=== PATIENT | male | born 1930 | race Asian ===

== ENCOUNTER 2016-10-19 05:32 | Inpatient (IN) | payer MEDICARE, OTHER ==
[2016-10-19] VITALS (13 sets, daily range): BP systolic 112–157; BP diastolic 58–89; PULSE 70–151; RESP 18; TEMP 97.5; Ht 172.7 cm; Wt 67.1 kg
[~2016-10-19] VITALS: Ht 172.7 cm; Wt 67.1 kg
[2016-10-19 06:23] LABS: Allen Test ACCEPTAB; Arterial Base Excess -0.4 mmol/L (-3.0-3); Arterial COHb 0.1 % (0.0-3.0); Arterial Fraction of Oxyhgb 96.8 % (93.0-99.0); Arterial HCO3 26.1 mmol/L (22.0-26.0); Arterial MetHb 0.3 % (0.0-1.5); Arterial Total Hemglobin 10.1 g/dl (12.0-18.0); Blood Gas IEPAP 15/5; MODE MASK - BIPAP
[2016-10-19 06:28] LABS: ABNORMAL IP MESSAGE 1; BASOPHIL # 0.1 10^3/ul (0.0-0.1); BASOPHILS % 0.4 % (0.0-2.0); EOSINOPHILS % 5.7 % (0.0-7.0); HEMATOCRIT 29.7 % (42.0-52.0); HEMOGLOBIN 9.3 g/dl (14.0-18.0); LYMPHOCYTES # 2.4 10^3/ul (0.8-2.9); LYMPHOCYTES % 13.6 % (15.0-51.0); MEAN CORPUSCULAR HEMOGLOBIN 33.5 pg (29.0-33.0); MEAN CORPUSCULAR HGB CONC 31.3 g/dl (32.0-37.0); MEAN CORPUSCULAR VOLUME 106.8 fl (82.0-101.0); MEAN PLATELET VOLUME 9.7 fl (7.4-10.4); MONOCYTES % 11.2 % (0.0-11.0); NEUTROPHILS % 67.9 % (39.0-77.0); NUCLEATED RED BLOOD CELLS% 0.1 /100WBC (0.0-0.0); PLATELET COUNT 229 10^3/UL (140-415); POSITIVE DIFF @See below; RED BLOOD COUNT 2.78 10^6/ul (4.70-6.10); RED CELL DISTRIBUTION WIDTH 18.6 % (11.5-14.5); WHITE BLOOD COUNT 17.6 10^3/ul (4.8-10.8)
--- NOTE | 2016-10-19 06:37 | RADRPT ---
PROCEDURE: XR Chest. CLINICAL INDICATION: Sepsis TECHNIQUE: AP Portable chest. COMPARISON: No pertinent prior examinations were submitted for comparison. FINDINGS: There is a right subclavian double-lumen central venous catheter with the tip in the SVC. The cardiomediastinal silhouette is within normal limits. The aortic arch is calcified. Biapical bu llous changes and right upper lobe scarring are visualized. Bilateral lower lung opacities and smal l pleural effusions are visualized. The left hemidiaphragm is obscured. The osseous structures are intact. IMPRESSION: Right dialysis catheter in place. Biapical bullous changes. Pulmonary edema, bilateral lower lung interstitial densities and small pleural effusions. Physician Zuleyma Date Time Electronically viewed and signed by Physician Zuleyma on 10/19/2016 06:37 CS/
[2016-10-19 06:40] LABS: INR 1.01; PARTIAL THROMBOPLASTIN TIME 31.3 Sec (25.0-35.0); PROTIME 13.3 Sec (12.2-14.2)
[2016-10-19 06:43] LABS: ALBUMIN 3.6 g/dl (3.3-4.9); ALBUMIN/GLOBULIN RATIO 1.05; BILIRUBIN,INDIRECT 0.3 mg/dl (0-1.1); BILIRUBIN,TOTAL 0.3 mg/dl (0.2-1.3); CALCIUM 8.4 mg/dl (8.4-10.2); CREATININE 4.89 mg/dl (0.61-1.24); POTASSIUM 4.7 mmol/L (3.5-5.1)
[2016-10-19 06:58] LABS: TROPONIN-I 0.491 ng/ml (0.00-0.12)
[2016-10-19] MEDS ORDERED: ASPIRIN 81 MG TAB PO ONE (07:00)
[2016-10-19] MEDS ORDERED: ASPIRIN 300 MG SUPP PR ONE (07:30)
[2016-10-19 07:49] LABS: AADO2 Arterial 247.7 mmHg (7.0-24.0); Allen Test ACCEPTAB; Arterial Base Excess -0.3 mmol/L (-3.0-3); Arterial COHb 0.1 % (0.0-3.0); Arterial Fraction of Oxyhgb 99.3 % (93.0-99.0); Arterial HCO3 24.1 mmol/L (22.0-26.0); Arterial MetHb 0.3 % (0.0-1.5); Arterial Total Hemglobin 9.1 g/dl (12.0-18.0); Blood Gas IEPAP 18/5; MODE MASK - BIPAP
--- NOTE | 2016-10-19 09:13 | ERA ---
ER Documentation Chief Complaint Date/Time DATE: 10/19/16 TIME: 09:05 Chief Complaint bib ra from [facility] for sob and low grade fever HPI 85-year-old man brought in by EMS from snf for shortness of breath. He was recently discharged from the hospital after being diagnosed with pneumonia. He is currently being treated with IV antibiotics. Patient was also recently diagnosed with end-stage kidney disease and had hemodialysis 2 days ago he is next hemodialysis is due tomorrow. He denies chest pain, he states fever has resolved, he has no vomiting or diarrhea, and his cough has improved. He denies blood per rectum or loss of consciousness. He is currently undergoing antibiotic therapy although does not recall the name of the antibiotic. ROS All systems reviewed and are negative except as per history of present illness. Allergies Allergies: Coded Allergies: No Known Allergy (Unverified , 10/19/16) PMhx/Soc Coronary artery disease, CHF, end-stage kidney disease hemodialysis dependent Saturdays, hypertension History of Surgery: Yes (right chest wall dialysis port placement) Anesthesia Reaction: No Hx Neurological Disorder: No Hx Respiratory Disorders: Yes (pneumonia recent) Hx Cardiac Disorders: Yes (chf, htn ) Hx Miscellaneous Medical Probl: Yes (CKD, Diabetes) Hx Alcohol Use: No Hx Substance Use: No Hx Tobacco Use: No Smoking Status: Never smoker FmHx Family History: No diabetes Physical Exam Vitals Vital Signs Date Time Temp Pulse Resp B/P Pulse Ox O2 Delivery O2 Flow Rate FiO2 10/19/16 07:18 82 25 160/69 100 BIPAP 10/19/16 06:33 92 100 100 10/19/16 06:03 98.5 92 29 139/76 100 BIPAP 10/19/16 05:45 112 100 100 10/19/16 05:39 98.5 114 29 175/89 99 Physical Exam GENERAL: Well-developed, well-nourished, afebrile, dyspneic HEENT: Moist mucous membranes, pink conjunctiva, no cervical spine tenderness or step-off deformities, no goiter, no jaundice or icterus, extraocular movements intact without pain. No submandibular induration, and no pharyngeal erythema NEURO: Alert and oriented 3, cranial nerves II through XII intact bilaterally, pupils equal round reactive to light, no focal deficits or facial asymmetry, sensation intact distally Strength 5/5 in upper and lower extremities bilaterally CARDIAC: Tachycardic and regular LUNGS: Crackles diffusely, no wheezing or stridor ABDOMEN: Soft nontender, no guarding, no rigidity, no rebound, no psoas sign no obturator sign. Normoactive bowel sounds SKIN: Warm and dry to touch, no abrasions, contusions, or hematomas, no lacerations, no ecchymosis, no target lesions, and without ulcers EXTREMITIES: No clubbing cyanosis or edema, calves are bilaterally symmetrical, no Homans sign, no popliteal cord sign. Distal pulses equal and bilateral PSYCH: Normal affect without agitation or irritability Result Diagram: 10/19/16 0540 10/19/16 0540 Results 24 hrs Laboratory Tests Test 10/19/16 05:40 10/19/16 05:53 10/19/16 07:30 White Blood Count 17.610^3/ul Red Blood Count 2.7810^6/ul Hemoglobin 9.3g/dl Hematocrit 29.7% Mean Corpuscular Volume 106.8fl Mean Corpuscular Hemoglobin 33.5pg Mean Corpuscular Hemoglobin Concent 31.3g/dl Red Cell Distribution Width 18.6% Platelet Count 55832^3/UL Mean Platelet Volume 9.7fl Neutrophils % 67.9% Lymphocytes % 13.6% Monocytes % 11.2% Eosinophils % 5.7% Basophils % 0.4% Nucleated Red Blood Cells % 0.1/100WBC Neutrophils # (Manual) 12.010^3/ul Lymphocytes # 2.410^3/ul Monocytes # 2.010^3/ul Eosinophils # 1.010^3/ul Basophils # 0.110^3/ul Nucleated Red Blood Cells # 0.010^3/ul Prothrombin Time 13.3Sec Prothrombin Time Ratio 1.0 INR International Normalized Ratio 1.01 Activated Partial Thromboplast Time 31.3Sec Sodium Level 138mmol/L Potassium Level 4.7mmol/L Chloride Level 95mmol/L Carbon Dioxide Level 26mmol/L Anion Gap 22 Blood Urea Nitrogen 32mg/dl Creatinine 4.89mg/dl Glucose Level 156mg/dl Lactic Acid Level 1.1mmol/L Calcium Level 8.4mg/dl Total Bilirubin 0.3mg/dl Direct Bilirubin 0.00mg/dl Indirect Bilirubin 0.3mg/dl Aspartate Amino Transf (AST/SGOT) 69IU/L Alanine Aminotransferase (ALT/SGPT) 51IU/L Alkaline Phosphatase 336IU/L Troponin I 0.491ng/ml Total Protein 7.0g/dl Albumin 3.6g/dl Globulin 3.40g/dl Albumin/Globulin Ratio 1.05 Blood Gas Specimen Source Blood arterial Blood arterial Arterial Blood Date Drawn 10/19/2016 6:15:26 AM 10/19/2016 7:40:12 AM Arterial Blood pH (Temp corrected) 7.322 7.419 Arterial Blood pCO2 (Temp correct) 51.5mmhg 38.1mmhg Arterial Blood pO2 (Temp corrected) 105.5mmHG 427.2mmHG Arterial Blood HCO3 26.1mmol/L 24.1mmol/L Arterial Blood Base Excess -0.4mmol/L -0.3mmol/L Arterial Blood Oxygen Saturation 97.2mmHG 99.7mmHG Luis Test ACCEPTAB ACCEPTAB Arterial Blood Gas Puncture Site Left Radial Right Radial Arterial Blood Carboxyhemoglobin 0.1% 0.1% Arterial Blood Methemoglobin 0.3% 0.3% Blood Gas A-a O2 Differential 556.0mmHg 247.7mmHg Oxyhemoglobin Percent 96.8% 99.3% Total Hemoglobin 10.1g/dl 9.1g/dl Blood Gas Temperature 37.0C 37.0C Blood Gas Respiration Rate 14.0 14.0 Blood Gas Actual Respiration Rate 30 16 Blood Gas Modality MASK - BIPAP MASK - BIPAP FiO2 100.0% 100.0% Blood Gas IPAP/EPAP Ratio 06/07 09/07 Blood Gas Notified Whom CHRISTI Alcala Blood Gas Notified Time 10/19/2016 6:23:34 AM 10/19/2016 7:48:59 AM Current Medications Medications (Trade) Dose Ordered Sig/Alize Route PRN Reason Start Time Stop Time Status Last Admin Dose Admin Aspirin (Aspirin) 324 mg ONCE ONCE PO 10/19/16 07:00 10/19/16 07:01 DC Aspirin (Aspirin) 300 mg ONCE ONCE MI 10/19/16 07:30 10/19/16 07:31 DC 10/19/16 07:14 Procedures/MDM IV line was established patient was placed on technology intern rhythm strip revealed a sinus tachycardia at 120 bpm. Patient was afebrile. EKG performed, read by me revealed a sinus tachycardia at 117 bpm, normal axis, narrow QRS complex with ST depressions in leads V4 through V6 concerning for ischemic etiology although patient is without complaints of chest pain. Patient was placed on BiPAP therapy for shortness of breath and suspected congestive heart failure. One view chest x-ray performed, read by me revealed cardiomegaly and a hemodialysis catheter in the right chest with bilateral pulmonary vascular congestion, possible infiltrates pulmonary edema. I administered aspirin 300 mg per rectum. Initial ABG was performed immediately after BiPAP therapy revealed a pH of 7.32 , PCO2 52, PO2 110 revealing respiratory acidosis and hypercapnia. After about 2 hours of BiPAP therapy ABG was repeated revealing a pH of 7.42, PCO2 38, PO2 427. Normal FiO2 decreased. CBC reveals a leukocytosis, electrolytes reveal kidney failure with a creatinine of 5, liver function tests unremarkable, troponin positive at 0.5. Lactic acid low at 1.1. I do not suspect sepsis. Critical Care: Time: 40 minutes, this was time separate from other billable procedures. Treatments/Evaluations: Close monitoring and treatment of unstable vital signs, cardiorespiratory, and neurologic status, while maintaining tight balance of fluid, respiratory, and cardiac interventions. Patient will be admitted to telemetry setting for continued medical management, with nephrology and cardiology consultations. Patient admitted to Dr. Galeas. Departure Diagnosis: Primary Impression: Acute respiratory failure Qualified Code: J96.01 - Acute respiratory failure with hypoxia and hypercapnia Additional Impressions: CHF (congestive heart failure) Qualified Code: I50.21 - Acute systolic congestive heart failure Non-STEMI (non-ST elevated myocardial infarction) End stage kidney disease Hypertensive emergency Condition: JUSTIN Medina MD Oct 19, 2016 09:13
--- NOTE | 2016-10-19 09:51 | HP ---
Date/Time of Note Date/Time of Note DATE: 10/19/16 TIME: 09:50 Assessment/Plan VTE Prophylaxis VTE Prophylaxis Intervention: heparin Assessment/Plan Assessment/Plan This is a 85-year-old elderly male, who was brought from a assisted facility for evaluation of worsening shortness of breath and cough. 1. Congestive heart failure, in exacerbation. Patient presented with obvious fluid overload requiring emergency hemodialysis. -We will call stat nephrology consultation. We will also attempt a dose of Lasix and place a Hay catheter. -We will start patient on beta-leslie and titrate as indicated. -Currently echocardiogram is not available and we will proceed with obtaining a 2D echo. 2. Acute hypoxic respiratory failure requiring BiPAP intervention secondary to #1. ABG reviewed. -Start [id number] bronchodilators and continue on BiPAP. -We will attempt diuresis as awaiting for hemodialysis. -We will consider pulmonary if indicated. 3. Non-ST elevated myocardial infarction. -We will trend troponin and consider heparin drip if indicated. -ASA,NTG SL and Morphine PRN. -Cardiology consult for further management 4. CKD with progression to end-stage renal disease requiring hemodialysis. -Again, we will follow-up with nephrology recommendation on hemodialysis. -We will also consider placing patient on permanent hemodialysis catheter and will be coordinated with our nephrology colleagues. 5. Leukocytosis, likely secondary to recent pneumonia. -We will start patient on cefepime and vancomycin. -Follow-up with urine and blood cultures. 6. Essential hypertension. -We will continue patient on antihypertensives. 7. Type 2 diabetes. -Accu-Cheks and insulin sliding scale. Obtain A1c. 8. Dyslipidemia. -We will start patient on statin. 9. Microcytic anemia. H&H stable. -Obtain folate, vitamin B12 and treat accordingly. 10. Debility. -Supportive care. Family opted for full code. DVT prophylaxis: Heparin PUD prophylaxis: Protonix Plan: Patient will be admitted to telemetry. EKG will be monitored closely. Troponin will be trended. Patient will have nephrology consultation and hemodialysis. Monitor respiratory status and will consider pulmonary if indicated. Will also obtain a.m. labs including fasting lipid panel, A1c, and TSH levels. We will also obtain follow-up chest x-rays. Next Case discussed with Dr. Carlos POSADA/DESTINY Admit Date/Time Admit Date/Time Hx of Present Illness This is a 85-year-old male with a past medical history of congestive heart failure, CKD with progression to end-stage renal disease started on hemodialysis 1 week ago, type 2 diabetes, dyslipidemia, essential hypertension, who was sent from SNF for worsening shortness of breath associated with cough. Apparently, patient was recently discharged from [facility] last week where he was treated for pneumonia, pulmonary edema and CKD progressed to end-stage renal disease for which dialysis was also started at that time. From there, he was sent to a assisted facility for completion of IV antibiotic for underlying pneumonia. On presentation, patient was in respiratory distress requiring BiPAP. He was feeling very weak and tired and upon his eyes to verbal stimuli and responds minimally. Patient continued to complain of shortness of breath. However, he denied any chest pain, nausea, vomiting, abdominal pain, headache, dizziness or other suggestion symptoms. Initial labs with elevated WBC 17,600, hemoglobin 9.3, hematocrit 29.7, anion gap 22, BUN 32, and creatinine 4.89. Patient also had elevated initial troponin 0 0.491. Urinalysis was negative of UTI. Chest x -ray showed severe pulmonary edema with small pleural effusion. Patient was given aspirin in the emergency room. ROS A 12 point review of system was assessed and is negative other than what is mentioned in HPI. PMH/Family/Social Past Medical History see HPI Past Surgical History see HPI Social History Former smoker-quit 30yrs ago no alcohol, illicit drug use history. Smoking Status: Never smoker Exam/Review of Systems Vital Signs Vitals Vital Signs Date Time Temp Pulse Resp B/P Pulse Ox O2 Delivery O2 Flow Rate FiO2 10/19/16 09:12 97.5 79 19 146/73 100 BIPAP 10/19/16 06:33 100 Exam Exam General: Frail looking male in respiratory distress. HEENT: Normocephalic, Atraumatic, No laceration or hematoma; Eyes: PEERL, Conjunctiva clear, Anicteric sclera Neck: Supple without any lymphadenopathy, nontender, no JVD, no carotid bruits, trachea midline, no thyromegaly Cardiac: S1, S2 auscultated, regular rhythm and rate, no mumurs or gallop Pulmonary: Coarse crackles throughout lung sanchez. Expiratory wheezing RUL. Increased work of breathing. +BIPAP. GI: Abdomen normal to inspection. Soft, non tender, non- distended, no masses, no rebound tenderness or guarding. Bowel sounds active on all four quadrants Genitourinary: Deferred Extremities: No cyanosis, clubbing, or edema. Pulses [2+] bilaterally. Full ROM on all four extremities. No focal weakness appreciated. Neurologic: Lethargic. opens eyes to verbal. Orientedx2. Skin: Clean,dry, and intact. No ecchymosis, no rashes, or lesions Labs Result Diagram: 10/19/16 0540 10/19/16 0540 Medications Medications Current Medications Furosemide (Lasix) 40 mg ONCE ONCE IV ; Start 10/19/16 at 10:00; Stop 10/19/16 at 10:01; Status UNV Ondansetron HCl (Zofran Inj) 4 mg Q6H PRN IV NAUSEA AND/OR VOMITING; Start at 10:00; Status UNV Morphine Sulfate (morphine) 2 mg Q4H PRN IV SEVERE PAIN LEVEL 7-10; Start 10/19 at 10:00; Status UNV Pantoprazole (Protonix Iv) 40 mg DAILY@06 IV ; Start 10/20/16 at 06:00; Status UNV Heparin Sodium (Porcine) (Heparin (5000 Units/0.5 ml)) 5,000 unit Q12 SC ; Start 10/19/16 at 21:00; Status UNV Metoprolol Tartrate (Lopressor) 25 mg DAILY PO ; Start 10/20/16 at 09:00; Status UNV Aspirin (Aspirin) 81 mg DAILY PO ; Start 10/20/16 at 09:00; Status UNV Hydralazine HCl (Apresoline) 10 mg Q6H PRN IV SBP>160; Start 10/19/16 at 10:00 ; Status UNV EDDIE ULLOA NP Oct 19, 2016 09:50
[2016-10-19] MEDS ORDERED: FUROSEMIDE 40 MG INJ IV ONE (10:00)
[2016-10-19] MEDS ORDERED: VANCOMYCIN IV PER PHARMACY XX SCH ×2 (10:00→21:30)
[2016-10-19] MEDS ORDERED: hydrALAzine 20 MG INJ IV PRN (10:00)
[2016-10-19] MEDS ORDERED: NACL 0.9% 3 ML SYG IV SCH (10:00)
[2016-10-19] MEDS ORDERED: VANCOMYCIN 1 GM (PMX) 250 ML IVPB SCH (10:00)
[2016-10-19] MEDS ORDERED: ONDANSETRON 4 MG INJ IV PRN (10:00)
[2016-10-19] MEDS ORDERED: morphine 2 MG INJ IV PRN (10:00)
[2016-10-19] MEDS: ASPIRIN 81 MG TAB PO SCH (10:30)
--- NOTE | 2016-10-19 10:39 | CONS ---
Date/Time of Note Date/Time of Note DATE: 10/19/16 TIME: 10:26 Assessment/Plan Assessment/Plan Chief Complaint/Hosp Course Acute on chronic ?diastolic heart failure: Possibly secondary to missed HD session Wednesday. Has not had HD for 4 days. Also with ischemia based on EKG which is contributing though pt denies chest pain. Needs urgent HD NSTEMI: Initial trop 0.5, EKG with diffuse ischemia concerning for 3 vessel disease or left main disease. Will definitely need a cardiac cath even with recent normal stress test which was likely a false negative. As the pt has no chest pain and his main issues are respiratory, will stabilize first with couple of days in a row of HD and plan for cardiac cath in 2 days assuming he remains hemodynamically stable and asymptomatic. Acute respiratory failure: Due to heart failure as above. On BiPAP ESRD on HD: recently started. Missed a session which likely caused his decompensation DM HTN HL -needs urgent HD and likely 2-3 days in a row, nephrology aware -trend trops, if next one is higher, start heparin drip -repeat EKG to see if ST changes have improved now that pt has been stabilized and is on BiPAP -cardiac cath (timing to be determined based on respiratory status, ideally should be off BiPAP and able to lay flat) -continue ASA, add lipitor -continue metoprolol 25mg BID, uptitrate as BP /HR tolerates Problems: Consultation Date/Type/Reason Admit Date/Time Date of Consultation: Oct 19, 2016 Type of Consultation: Cardiology Reason for Consultation Acute respiratory failure, NSTEMI Referring Provider: EDDIE ULLOA NP Hx of Present Illness 85 yo M with a h/o CHF, ESRD started on HD 1 week ago, DM, HTN, HL, who presented from his SNF with SOB. The pt was apparently at [facility] last week and was initiated on HD TTS. He was discharged to the SNF yesterday but had worsening SOB and was brought in. Per daughter the pt did not receive HD on Wednesday. Per review of records, the pt had been complaining of chest pain on last admission and stress test was normal. Upon arrival to the ED, the pt was placed on BiPAP. He remains on BiPAP. I was able to communicate with him after removing the BiPAP. He feels very weak and tired and still has SOB but he denies CP at this time. Per family, he has not had a previous SD or angiography. per HPI, otherwise negative Past Medical History per HPI Social History Smoking Status: Never smoker Exam/Review of Systems Vital Signs Vitals Vital Signs Date Time Temp Pulse Resp B/P Pulse Ox O2 Delivery O2 Flow Rate FiO2 10/19/16 09:12 97.5 79 19 146/73 100 BIPAP 10/19/16 06:33 100 Exam Constitutional: oriented, No alert (somnolent but arousable ) Psych: nl mood/affect Head: atraumatic, normocephalic ENMT: other (on BiPAP) Neck: jvd (12cm), supple Respiratory: crackles/rales (throughout ), No clear to auscultation Cardiovascular: systolic murmur (2/6 JACOB) Gastrointestinal: distended (mild), non-tender, soft Neurological: nl mental status, nl speech Skin: No rash or lesions Results EKG: sinus, diffuse 2-[address] depression with PINEDA in aVR concerning for global ischemia. Result Diagram: 10/19/16 0540 10/19/16 0540 Results 24 hrs Laboratory Tests Test 10/19/16 05:40 10/19/16 05:53 10/19/16 07:30 White Blood Count 17.6 H Red Blood Count 2.78 L Hemoglobin 9.3 L Hematocrit 29.7 L Mean Corpuscular Volume 106.8 H Mean Corpuscular Hemoglobin 33.5 H Mean Corpuscular Hemoglobin Concent 31.3 L Red Cell Distribution Width 18.6 H Platelet Count 229 Mean Platelet Volume 9.7 Neutrophils % 67.9 Lymphocytes % 13.6 L Monocytes % 11.2 H Eosinophils % 5.7 Basophils % 0.4 Nucleated Red Blood Cells % 0.1 H Neutrophils # (Manual) 12.0 H Lymphocytes # 2.4 Monocytes # 2.0 H Eosinophils # 1.0 H Basophils # 0.1 Nucleated Red Blood Cells # 0.0 Prothrombin Time 13.3 Prothrombin Time Ratio 1.0 INR International Normalized Ratio 1.01 Activated Partial Thromboplast Time 31.3 Sodium Level 138 Potassium Level 4.7 Chloride Level 95 L Carbon Dioxide Level 26 Anion Gap 22 H Blood Urea Nitrogen 32 H Creatinine 4.89 H Glucose Level 156 Lactic Acid Level 1.1 Calcium Level 8.4 Total Bilirubin 0.3 Direct Bilirubin 0.00 Indirect Bilirubin 0.3 Aspartate Amino Transf (AST/SGOT) 69 H Alanine Aminotransferase (ALT/SGPT) 51 Alkaline Phosphatase 336 H Troponin I 0.491 *H Total Protein 7.0 Albumin 3.6 Globulin 3.40 H Albumin/Globulin Ratio 1.05 Blood Gas Specimen Source Blood arterial Blood arterial Arterial Blood Date Drawn 10/19/2016 6:15:26 AM 10/19/2016 7:40:12 AM Arterial Blood pH (Temp corrected) 7.322 L 7.419 Arterial Blood pCO2 (Temp correct) 51.5 H 38.1 Arterial Blood pO2 (Temp corrected) 105.5 H 427.2 H Arterial Blood HCO3 26.1 H 24.1 Arterial Blood Base Excess -0.4 -0.3 Arterial Blood Oxygen Saturation 97.2 99.7 Luis Test ACCEPTAB ACCEPTAB Arterial Blood Gas Puncture Site Left Radial Right Radial Arterial Blood Carboxyhemoglobin 0.1 0.1 Arterial Blood Methemoglobin 0.3 0.3 Blood Gas A-a O2 Differential 556.0 H 247.7 H Oxyhemoglobin Percent 96.8 99.3 H Total Hemoglobin 10.1 L 9.1 L Blood Gas Temperature 37.0 37.0 Blood Gas Respiration Rate 14.0 14.0 Blood Gas Actual Respiration Rate 30 16 Blood Gas Modality MASK - BIPAP MASK - BIPAP FiO2 100.0 100.0 Blood Gas IPAP/EPAP Ratio 15 18 Blood Gas Notified Whom CHRISTI Alcala Blood Gas Notified Time 10/19/2016 6:23:34 AM 10/19/2016 7:48:59 AM Medications Medications Current Medications Furosemide (Lasix) 40 mg ONCE ONCE IV ; Start 10/19/16 at 10:00; Stop 10/19/16 at 10:01; Status UNV Ondansetron HCl (Zofran Inj) 4 mg Q6H PRN IV NAUSEA AND/OR VOMITING; Start at 10:00; Status UNV Morphine Sulfate (morphine) 2 mg Q4H PRN IV SEVERE PAIN LEVEL 7-10; Start 10/19 at 10:00; Status UNV Pantoprazole (Protonix Iv) 40 mg DAILY@06 IV ; Start 10/20/16 at 06:00; Status UNV Heparin Sodium (Porcine) (Heparin (5000 Units/0.5 ml)) 5,000 unit Q12 SC ; Start 10/19/16 at 21:00; Status UNV Metoprolol Tartrate (Lopressor) 25 mg DAILY PO ; Start 10/20/16 at 09:00; Status UNV Aspirin (Aspirin) 81 mg DAILY PO ; Start 10/20/16 at 09:00; Status UNV Hydralazine HCl 10 mg 10 mg Q6H PRN IV SBP>160; Start 10/19/16 at 10:00; Status UNV Cefepime HCl 50 ml @ 100 mls/hr Q12 IVPB ; Start 10/19/16 at 10:00; Status UNV Vancomycin HCl (Vancocin) 250 ml @ 125 mls/hr ONCE IVPB ; Start 10/19/16 at 10: 00; Stop 10/19/16 at 11:59; Status UNV Miscellaneous Information (* Miscellaneous Pharmacy Order) Discontinue current oral sulfonylur... ONCE ONCE XX ; Start 10/19/16 at 10:00; Stop 10/19/16 at 10: 01; Status UNV Diagnostic Test (Pha) (Accu-Chek) 1 XX ; Start 10/20/16 at 02:00; Status UNV Miscellaneous Information (* Miscellaneous Pharmacy Order) HYPOGLYCEMIA PROTOCOL w... ONCE ONCE XX ; Start 10/19/16 at 10:00; Stop 10/19/16 at 10:01; Status UNV Insulin Aspart (Novolog Insulin Pen) NOVOLOG *MILD* ALGORI... Q4 SC ; Start at 13:00; Status UNV Miscellaneous Information (* Miscellaneous Pharmacy Order) Discontinue all previ... ONCE ONCE XX ; Start 10/19/16 at 10:00; Stop 10/19/16 at 10:01; Status UNV NAEEM WRAY Oct 19, 2016 10:39
[2016-10-19] MEDS ORDERED: HEPARIN 5,000 UNIT/0.5 ML VIAL SC SCH (11:00)
[2016-10-19] MEDS: CEFEPIME 1GM/50 ML (PMX) 50 ML IVPB SCH (11:23)
[2016-10-19 11:29] LABS: ADD UMIC YES; UR ASCORBIC ACID NEGATIVE (NEGATIVE); UR BACTERIA FEW /HPF (NONE SEEN); UR BILIRUBIN (Dip) NEGATIVE (NEGATIVE); UR BLOOD (Dip) 1+ mg/dL (NEGATIVE); UR CLARITY CLOUDY (CLEAR); UR COLOR YELLOW (YELLOW); UR GLUCOSE (Dip) 1+ mg/dL (NEGATIVE); UR KETONES (Dip) TRACE mg/dL (NEGATIVE); UR LEUKOCYTE ESTERASE (Dip) NEGATIVE Leu/ul (NEGATIVE); UR NITRITE (Dip) NEGATIVE (NEGATIVE); UR RBC 2 /HPF (0-5); UR SPECIFIC GRAVITY (Dip) 1.017 (1.003-1.030); UR TOTAL PROTEIN (Dip) 3+ mg/dl (NEGATIVE); UR UROBILINOGEN (Dip) NEGATIVE (NEGATIVE)
[2016-10-19] MEDS ORDERED: METOPROLOL 25 MG TAB PO SCH (11:30)
[2016-10-19] MEDS: PANTOPRAZOLE 40 MG INJ IV SCH (12:55)
[2016-10-19] MEDS: INSULIN ASPART [NOVOLOG] 3 ML PEN SC SCH ×3 (13:00→21:00)
[2016-10-19 13:14] LABS: CK-MB 9.91 ng/ml (0.0-2.4)
[2016-10-19 13:16] LABS: TROPONIN-I 2.75 ng/ml (0.00-0.12)
[2016-10-19] MEDS ORDERED: VANCOMYCIN 500MG/NS (PMX) 100 ML IVPB SCH (15:00)
[2016-10-19 15:03] LABS: CK-MB 9.21 ng/ml (0.0-2.4); TROPONIN-I 2.98 ng/ml (0.00-0.12)
[2016-10-19] MEDS ORDERED: HEPARIN 25000 UNITS/250 ML 250 ML IV SCH (15:30)
[2016-10-19] MEDS ORDERED: HEPARIN 1000 UNITS/ML 10 ML INJ IV ONE (15:30)
[2016-10-19] MEDS ORDERED: HEPARIN 1000 UNITS/ML 10 ML INJ IV PRN (15:30)
[2016-10-19] MEDS ORDERED: METO-448 PO (15:39)
[2016-10-19] MEDS ORDERED: MOME13HF2 INHALATION (15:41)
[2016-10-19] MEDS ORDERED: DOXA4TAB3 PO (15:41)
[2016-10-19] MEDS ORDERED: FINA5TAB4 PO (15:42)
[2016-10-19] MEDS ORDERED: OMEG-135 PO (15:43)
[2016-10-19] MEDS ORDERED: [UNRECOGNIZED DRUG - CODE] PO (15:44)
[2016-10-19] MEDS ORDERED: HYDR-3670 PO (15:45)
[2016-10-19] MEDS ORDERED: LANT3I SC (15:46)
[2016-10-19] MEDS ORDERED: VIT1CAPS15 PO (15:48)
[2016-10-19] MEDS ORDERED: PANT40SU PO (15:48)
[2016-10-19] MEDS ORDERED: NEPH PO (15:49)
[2016-10-19] MEDS ORDERED: SEVE800T7 PO (15:50)
[2016-10-19] MEDS ORDERED: LINA5TAB PO (15:50)
[2016-10-19] MEDS ORDERED: ONDA-43 PO (15:51)
[2016-10-19] MEDS ORDERED: POLY17PO6 PO (15:51)
[2016-10-19] MEDS ORDERED: ACET325T33 PO (15:52)
[2016-10-19] MEDS ORDERED: BISA-57 PO (15:53)
[2016-10-19] MEDS ORDERED: ASPI-664 PO (15:54)
[2016-10-19] MEDS ORDERED: ZOLP5TAB PO (15:55)
[2016-10-19] MEDS ORDERED: ALBUTEROL/IPRATROPIUM (NEB) 3 ML AMP HHN PRN (16:00)
[2016-10-19 16:11] LABS: INR 1.02; PARTIAL THROMBOPLASTIN TIME 31.2 Sec (25.0-35.0); PROTIME 13.4 Sec (12.2-14.2)
--- NOTE | 2016-10-19 16:40 | RADRPT ---
PROCEDURE: US Lower extremity Venous. CLINICAL INDICATION: Lower extremity pain and swelling TECHNIQUE: Multiple sonographic images of the bilateral lower extremity deep venous system was obt ained utilizing grayscale, color-flow, compressive sonography and doppler imaging with augmentation. The images were reviewed on a PACS workstation. COMPARISON: None. FINDINGS: There is normal compressibility and flow within the bilateral common femoral, superficial femoral an d popliteal veins. Flow is seen in the posterior tibial and peroneal veins. IMPRESSION: No sonographic evidence for deep venous thrombosis. RPTAT: AA .Rowdy Wells MD, MD Date Time Electronically viewed and signed by .Rowdy Wells MD, MD on 10/19/2016 16:40 .P/
[2016-10-19] MEDS: ALBUTEROL/IPRATROPIUM (NEB) 3 ML AMP HHN SCH ×2 (17:11→20:04)
--- NOTE | 2016-10-19 19:44 | RADRPT ---
Echocardiogram Report Patient Name: JOSE MORAN Gender: Male Date: 1930 Study Date: 19-Oct-2016 Public Space Attendant: Niki [facility] Location: [facility] Ref. Physician: EDDIE ULLOA Quality: Adequate Procedures: Transthoracic echocardiogram with complete 2D, M-Mode, and doppler examination. Indications: Pulmonary Edema. 2D/M Mode Doppler Measurement Value Normal Ranges Measurement Value Normal Ranges LVIDd 2D 4.4 3.5 - 5.6 cm AV Peak Tony 1.3 m/sec LVIDs 2D 3.3 2.1 - 4.1 cm AV Peak PG 6.0 mmHg FS 2D 23.9 % LVOT Peak Tony 0.8 m/sec LVPWd 2D 1.3 0.6 - 1.1 cm LVOT Peak PG 3.0 mmHg IVSd 2D 1.3 0.6 - 1.1 cm MV E Peak Tony 1.3 m/sec IVS/LVPW 2D 1.0 MV A Peak Tony 1.4 m/sec AoR Diam 2D 2.6 2.0 - 3.7 cm MV E/A 0.9 LA/Ao 2D 1 0 - 1 MV Decel Time 137 msec EDV 2D 82.9 cm3 MV E/A 0.9 ESV 2D 36.6 cm3 TR Peak Tony 2.5 m/sec LA Dimen 2D 3.5 2.3 - 4.0 cm TR Peak PG 25.0 mmHg RVSP 33.0 mmHg Findings Left Ventricle: Lower limits of normal systolic function. Normal left ventricular cavity size. Mild concentric left ventricular hypertrophy. Ejection fraction is visually estimated at 50 %. Tissue Doppler/Mitral Doppler indices are consistent with impaired relaxation (Stage I diastolic dysfunction). Resting Segmental Wall Motion Analysis: Hypokinesis of the basal inferior and mid-distal inferolateral cedillo. Right Ventricle: Normal right ventricular size. Normal right ventricular systolic function. Left Atrium: There is mild enlargement of left atrium. Right Atrium: The right atrium is normal in size. Mitral Valve: Mild mitral leaflet calcification. Mild mitral annular calcification. Trace mitral regurgitation. Aortic Valve: Normal appearance of the aortic valve. No significant aortic stenosis or insufficiency. Tricuspid Valve: Normal appearance of the tricuspid valve. Unable to obtain RVSP due to minimal presence of tricuspid regurgitation. There is trace tricuspid regurgitation. Pulmonic Valve: Pulmonic valve not well visualized. There is trace pulmonic regurgitation. Pericardium: Normal pericardium with no significant pericardial effusion. Aorta: Normal aortic root. IVC: Normal size and poor respiratory collapse consistent with elevated right atrial pressure. Conclusions Lower limits of normal systolic function. Normal left ventricular cavity size. Mild concentric left ventricular hypertrophy. Ejection fraction is visually estimated at 50 %. Tissue Doppler/Mitral Doppler indices are consistent with impaired relaxation (Stage I diastolic dysfunction). Hypokinesis of the basal inferior and mid-distal inferolateral cedillo. No significant valvular stenosis or regurgitation seen. Unable to obtain RVSP due to minimal presence of tricuspid regurgitation. RA pressure estimated to be 8 mmHg. Electronically Signed By: Jorje Navarrete 19-Oct-2016 19:43:42 -0700 Patient Name: JOSE MORAN Study Date: 19-Oct-2016 [id number]
--- NOTE | 2016-10-19 20:33 | HP ---
DATE OF ADMISSION: 10/19/2016 HISTORY OF PRESENT ILLNESS: The patient is an 85-year-old gentleman, who had only been discharged from [facility] yesterday after having been dialyzed times 1 three days prior, who presents from a convalescent home with increasing shortness of breath and was evaluated in the emergency room. The patient's 2 daughters were at the bedside and history was reviewed. The patient denies any chest pains at this time. He was hospitalized at [facility] about 1 week back when he presented with increasing chest pain or shortness of breath and a Lexiscan was done, which was negative. Also, per patient's daughter, the patient had a workup by his billing and insurance coordinator, , and workup for coronary artery disease was negative. The patient also has history of hypertension and diabetes type 2. History of weight loss of nearly 10 pounds in the last 2 to 3 months per patient's daughter. The patient also had been hospitalized for pneumonia and had been placed on IV antibiotics about a week ago. No history of bronchial asthma. REVIEW OF SYSTEMS: HEENT: No history of headache, focal weakness, or numbness. No prior history of strokes. Eyes, no blurry vision or glaucoma. ENT noncontributory. NECK: No history of thyroid disease. PULMONARY: No bronchitis, atrial fibrillation, or asthma. The patient smoked for over 30 years 1 pack per day and stopped 20 years back. CARDIOVASCULAR: No prior history of NC or angina. Prior cardiac workup has been negative. GASTROINTESTINAL: No constipation, diarrhea, change of bowel habits. GENITOURINARY: No dysuria, hematuria, kidney stones. MEDICATIONS: Medication list to be reviewed. ALLERGIES: NO KNOWN ALLERGIES. PHYSICAL EXAMINATION: GENERAL: Patient is an average built male, presently in mild respiratory distress on BiPAP. VITAL SIGNS: Temperature 98.5, heart rate 114 per minute, blood pressure 174/89, pulse ox 99 percent, FiO2 100 percent. HEENT: Head normocephalic. No pallor, cyanosis, or icterus. Tongue is coated. NECK: Supple. No thyromegaly, bruits, lymphadenopathy. CHEST: Bilateral crackles at the bases. No wheezing noted. HEART: S1, S2 heard. No definite gallops. ABDOMEN: Soft, nontender. No hepatosplenomegaly. EXTREMITIES: No edema. Pedal pulsations 1 plus bilaterally. Homans sign is negative. NEUROLOGIC: No localizing or lateralizing signs. RECTAL: Deferred due to patient's discomfort. LABORATORY DATA: WBC 17.6, hematocrit 29.7, platelet count 229,000, lactic acid 1. Troponin 0.49 and repeat was 2.75. BNP 11,100. Chest x-ray shows bilateral pleural effusions with evidence of pulmonary edema. IMPRESSION: 1. Acute on chronic diastolic heart failure, likely has underlying coronary artery disease. 2. Acute respiratory failure secondary to heart failure. 3. End-stage renal disease on hemodialysis. 4. Diabetes mellitus type 2. 5. Hypertension. PLAN: The patient will need hemodialysis as soon as possible. I have requested Dr. Gresham and Dr. Zepeda to evaluate the patient and hemodialysis is being planned right away. Closely monitor troponin and follow cardiac recommendations. The patient will also be continued on intravenous antibiotic therapy namely with Zosyn and cefepime, follow-up chest x-ray in a.m., NovoLog for diabetic control. Dictated By: Saeid Galeas MD /raad/steph /Document#: [id number]
[2016-10-19] MEDS: ATORVASTATIN 40 MG TAB PO SCH (21:00)
[2016-10-19] MEDS ORDERED: CEFEPIME 1GM/50 ML (PMX) 50 ML IVPB SCH (21:30)
[2016-10-19] MEDS ORDERED: AMIODARONE 150MG/D5W BOLUS 100 ML IV ONE (22:30)
[2016-10-19] MEDS: METOPROLOL 25 MG TAB PO SCH (23:04)
[2016-10-20] VITALS (24 sets, daily range): BP systolic 91–171; BP diastolic 49–72; PULSE 68–95; RESP 17–25
[2016-10-20] MEDS: AMIODARONE 900 MG in DEXTROSE 5% 482 ML IV SCH ×2 (00:39→14:24)
[2016-10-20] MEDS: ALBUTEROL/IPRATROPIUM (NEB) 3 ML AMP HHN SCH ×6 (00:58→20:47)
[2016-10-20] MEDS: INSULIN ASPART [NOVOLOG] 3 ML PEN SC SCH ×4 (01:00→21:05)
[2016-10-20] MEDS: EPOETIN 10000 UNITS/1 ML INJ (ESRD) SC SCH (01:17)
[2016-10-20] MEDS ORDERED: ACCU-CHEK XX SCH (02:00)
--- NOTE | 2016-10-20 03:51 | CONS ---
DATE OF ADMISSION: 10/19/2016 DATE OF CONSULTATION: 10/19/2016 Thank you very much for allowing me to evaluate this 85-year-old male, presently in the ER, presenting with shortness of breath of several hours' duration and known impaired renal function. HISTORICAL EVENTS: The patient's history was obtained from the patient's family. They indicated to me that it was approximately a year ago that they were told that his kidney function had declined. More importantly was his admission to [facility] about 10 days ago, being hospitalized there 1 week ago and ultimately transferred to [facility] for convalescence 2 days ago. They stated that while at [facility], dialysis was instituted because of "fluid in his lungs," at that time, was not told that he had an acute heart injury. He presented to [facility] with increasing shortness of breath and weakness. He was ultimately transferred here from [facility] when he had the onset of shortness of breath earlier today without chest pain, having had no nausea, vomiting, or abdominal pain. PAST MEDICAL HISTORY: Includes. 1. Long history of diabetes. 2. History of hypertension. 3. Having had a heart "stress study" while at [facility]. 4. No history of stroke, antecedent MN, peptic ulcer disease, or phlebitis. 5. History of hyperlipidemia. PRESENT MEDICATIONS: Include: 1. Cefepime. 2. Vancomycin. 3. Baby aspirin. 4. Atorvastatin 40 mg per day. 5. Heparin 5000 units q.12. 6. Morphine as needed. 7. Zofran. 8. Protonix. 9. Insulin coverage. ALLERGIES: NONE. FAMILY HISTORY: To be reviewed later. PHYSICAL EXAMINATION: VITAL SIGNS: BP 146/73, respirations were 18. He was afebrile. EYES: Extraocular muscles were full. NECK: JVD was not present. LUNGS: Reduced breath sounds, without rales, wheezes or rhonchi. HEART: Rhythm regular. No murmur. No 3rd or 4th sound. ABDOMEN: Nontender. Liver and spleen were not palpable. No mass or tenderness were noted. EXTREMITIES: No edema. No calf tenderness. Pulses were reduced in the lower extremities. NEUROLOGIC: No lateralizing motor weakness. LABORATORY: Hematocrit 29.7, white count 17,600, platelet count was normal. Electrolytes were normal. BUN 32, creatinine 4.89. Troponin was elevated at 0.491. Blood gases: pCO2 of 38.1, pH 7.419, pO2 of 99.7 on 100 percent BiPAP. Chest x-ray was compatible with CHF. IMPRESSION: 1. Acute pulmonary edema with elevated troponin suggests a myocardial injury. Per Cardiology, will ultimately need heart cath. 2. Pulmonary edema that needs marcella dialytic intervention. This has been arranged promptly and await transfer to a room to institute this. 3. Mild anemia, likely related to chronic renal insufficiency. Iron studies are pending. 4. Hypertension control at this point is reasonable. PLAN: Will follow with you daily and will re-evaluate tomorrow, with respect to need for further dialysis. Procrit has been already ordered. Dictated By: Doni Zepeda MD /raad/johann /Document#: [id number] CC: Callie Pina MD;*End*
[2016-10-20] MEDS: PANTOPRAZOLE 40 MG INJ IV SCH (06:06)
[2016-10-20] MEDS ORDERED: GLUCOSE GEL 15 GRAM TUBE PO PRN ×2 (06:30)
[2016-10-20] MEDS ORDERED: GLUCOSE GEL 15 GRAM TUBE BUCCAL PRN (06:30)
[2016-10-20] MEDS ORDERED: GLUCAGON 1 MG INJ IM PRN (06:30)
[2016-10-20] MEDS ORDERED: DEXTROSE 50% 50 ML SYRINGE IV PRN ×2 (06:30)
--- NOTE | 2016-10-20 07:10 | RADRPT ---
PROCEDURE: XR Chest. CLINICAL INDICATION: Pulmonary edema TECHNIQUE: AP Portable chest. COMPARISON: 10/19/2016 FINDINGS: The right subclavian double-lumen central venous catheter is unchanged. The cardiomediastinal silhouette is within normal limits. The aortic arch is calcified. Biapical bul lous changes and right upper lobe scarring are is demonstrated. Interval increased lung volumes, dec reased pulmonary edema and bibasilar opacities. Probable small bilateral pleural effusions. The oss eous structures are intact. IMPRESSION: Right dialysis catheter in place. Interval decrease edema and basilar atelectasis. Physician Zuleyma Date Time Electronically viewed and signed by Physician Zuleyma on 10/20/2016 07:10 ELLEN/
--- NOTE | 2016-10-20 07:19 | CONS ---
Date/Time of Note Date/Time of Note DATE: 10/20/16 TIME: 07:14 Assessment/Plan Assessment/Plan Chief Complaint/Hosp Course Acute on chronic diastolic heart failure: Possibly secondary to missed HD session Wednesday. Possibly ischemia driven as inferolateral WMA and NSTEMI so could have had ischemic MR. Now much better after HD NSTEMI: Trop peak of 2.9 so far. Concern for 3 vessel or left main disease. Paroxysmal atrial fibrillation: Converted to afib 10/19. On amiodarone drip for now. 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 Acute respiratory failure: Due to heart failure as above. On BiPAP initially, now off and stable respiratory status ESRD on HD: recently started. Missed a session which likely caused his decompensation DM HTN HL -cardiac cath this am ~11:45. Suspect 3 vessel or left main disease. -Keep NPO (can give am meds) -ok to hold heparin drip -continue amiodarone drip -continue ASA, lipitor -continue metoprolol 25mg BID, uptitrate as BP /HR tolerates Problems: Consultation Date/Type/Reason Admit Date/Time Oct 19, 2016 at 07:51 Initial Consult Date 10/19/16 Type of Consultation: Cardiology Referring Provider: EDDIE ULLOA NP 24 HR Interval Summary Free Text/Dictation Trop so far up to 2.9. S/p HD with 3.5L out. Overnight converted to afib with RVR, started on amiodarone drip. Still in afib but controlled HR now. Heparin stopped due to HD cath site bleeding. No chest pain. SOB resolved. Exam/Review of Systems Vital Signs Vitals Vital Signs Date Time Temp Pulse Resp B/P Pulse Ox O2 Delivery O2 Flow Rate FiO2 10/20/16 05:54 69 18 96 Nasal Cannula 2.0 10/20/16 04:24 98.6 138/64 10/19/16 16:16 40 Intake and Output 10/19/16 10/19/16 10/20/16 15:00 23:00 07:00 Intake Total 1000 ml Output Total 4500 ml Balance -3500 ml Exam Constitutional: alert, oriented Psych: nl mood/affect, no complaints Head: atraumatic, normocephalic Eyes: nl conjunctiva ENMT: nl external ears & nose Neck: No jvd Respiratory: crackles/rales, No clear to auscultation (mild crackles ) Cardiovascular: edema (trace), No regular rate and rhythm, No systolic murmur Gastrointestinal: non-tender, soft Neurological: nl mental status, nl speech Results Result Diagram: 10/19/16 0540 10/19/16 0540 Results 24 hrs Laboratory Tests Test 10/19/16 07:30 10/19/16 09:03 10/19/16 11:00 10/19/16 12:10 Blood Gas Specimen Source Blood arterial Arterial Blood Date Drawn 10/19/2016 7:40:12 AM Arterial Blood pH (Temp corrected) 7.419 Arterial Blood pCO2 (Temp correct) 38.1 Arterial Blood pO2 (Temp corrected) 427.2 H Arterial Blood HCO3 24.1 Arterial Blood Base Excess -0.3 Arterial Blood Oxygen Saturation 99.7 Luis Test ACCEPTAB Arterial Blood Gas Puncture Site Right Radial Arterial Blood Carboxyhemoglobin 0.1 Arterial Blood Methemoglobin 0.3 Blood Gas A-a O2 Differential 247.7 H Oxyhemoglobin Percent 99.3 H Total Hemoglobin 9.1 L Blood Gas Temperature 37.0 Blood Gas Respiration Rate 14.0 Blood Gas Actual Respiration Rate 16 Blood Gas Modality MASK - BIPAP FiO2 100.0 Blood Gas IPAP/EPAP Ratio 18/5 Blood Gas Notified Whom Cari Blood Gas Notified Time 10/19/2016 7:48:59 AM Lactic Acid Level 0.9 1.0 Urine Color YELLOW Urine Clarity CLOUDY A Urine pH 5.0 Urine Specific [place] 1.017 Urine Ketones TRACE A Urine Nitrite NEGATIVE Urine Bilirubin NEGATIVE Urine Urobilinogen NEGATIVE Urine Leukocyte Esterase NEGATIVE Urine Microscopic RBC 2 Urine Microscopic WBC 2 Urine Bacteria FEW A Urine Hemoglobin 1+ H Urine Glucose 1+ H Urine Total Protein 3+ H Creatine Kinase 138 Creatine Kinase Index 7.2 Creatinine Kinase MB (Mass) 9.91 H Troponin I 2.750 *H B-Type Natriuretic Peptide 83117 H Test 10/19/16 13:11 10/19/16 14:10 10/19/16 15:45 10/19/16 17:11 Bedside Glucose 125 131 Creatine Kinase 143 Creatine Kinase Index 6.4 Creatinine Kinase MB (Mass) 9.21 H Troponin I 2.980 *H Prothrombin Time 13.4 Prothrombin Time Ratio 1.0 INR International Normalized Ratio 1.02 Activated Partial Thromboplast Time 31.2 Test 10/19/16 21:36 10/20/16 00:30 10/20/16 01:26 10/20/16 06:08 Bedside Glucose 99 117 128 Activated Partial Thromboplast Time 68.9 H Medications Medications Current Medications Ondansetron HCl (Zofran Inj) 4 mg Q6H PRN IV NAUSEA AND/OR VOMITING; Start at 10:00 Morphine Sulfate (morphine) 2 mg Q4H PRN IV SEVERE PAIN LEVEL 7-10; Start 10/19 at 10:00 Pantoprazole (Protonix Iv) 40 mg DAILY@06 IV Last administered on 10/20/16 06: 06; Admin Dose 40 MG; Start 10/19/16 at 11:00 Aspirin (Aspirin) 81 mg DAILY PO ; Start 10/19/16 at 10:30 Hydralazine HCl 10 mg 10 mg Q6H PRN IV SBP>160; Start 10/19/16 at 10:00 Cefepime HCl (Maxipime 1gm/50 ml (Pmx)) 50 ml @ 100 mls/hr Q24H IVPB Last administered on 10/19/16 11:23; Admin Dose 100 MLS/HR; Start 10/19/16 at 10:00 Diagnostic Test (Pha) (Accu-Chek) 1 ea 02 XX ; Start 10/20/16 at 02:00 Insulin Aspart (Novolog Insulin Pen) NOVOLOG *MILD* ALGORI... Q4 SC ; Start at 13:00 Atorvastatin Calcium (Lipitor) 40 mg QHS PO ; Start 10/19/16 at 21:00 Epoetin Guy (Epogen (Esrd)) 10,000 units MoWeFr@17 SC Last administered on 01:17; Admin Dose 10,000 UNITS; Start 10/19/16 at 17:00 Metoprolol Tartrate 25 mg 25 mg BID PO Last administered on 10/19/16 23:04; Admin Dose 25 MG; Start 10/19/16 at 22:30 Amiodarone HCl/ Dextrose (Cordarone Iv/ D5W) 500 ml @ 33.4 mls/hr [id number] IV Last administered on 10/20/16 00:39; Admin Dose 33.4 MLS/HR; Start 10/19/16 at 23:30 Miscellaneous Information 1 ea NOTE XX ; Start 10/20/16 at 06:30 Glucose (Glutose) 15 gm Q15M PRN PO DECREASED GLUCOSE; Start 10/20/16 at 06:30 Glucose (Glutose) 22.5 gm Q15M PRN PO DECREASED GLUCOSE; Start 10/20/16 at 06: 30 Dextrose (D50w Syringe) 25 ml Q15M PRN IV DECREASED GLUCOSE; Start 10/20/16 at 06:30 Dextrose (D50w Syringe) 50 ml Q15M PRN IV DECREASED GLUCOSE; Start 10/20/16 at 06:30 Glucagon (Glucagen) 1 mg Q15M PRN IM DECREASED GLUCOSE; Start 10/20/16 at 06:30 Glucose (Glutose) 15 gm Q15M PRN BUCCAL DECREASED GLUCOSE; Start 10/20/16 at 06 :30 NAEEM WRAY Oct 20, 2016 07:19
[2016-10-20 07:41] LABS: BASOPHILS % 0.3 % (0.0-2.0); EOSINOPHILS # 0.4 10^3/ul (0.0-0.5); EOSINOPHILS % 4.3 % (0.0-7.0); HEMATOCRIT 26.5 % (42.0-52.0); HEMOGLOBIN 8.4 g/dl (14.0-18.0); LYMPHOCYTES # 1.2 10^3/ul (0.8-2.9); LYMPHOCYTES % 13.2 % (15.0-51.0); MEAN CORPUSCULAR HEMOGLOBIN 34.6 pg (29.0-33.0); MEAN CORPUSCULAR HGB CONC 31.7 g/dl (32.0-37.0); MEAN CORPUSCULAR VOLUME 109.1 fl (82.0-101.0); MEAN PLATELET VOLUME 9.7 fl (7.4-10.4); MONOCYTE # 1.2 10^3/ul (0.3-0.9); MONOCYTES % 13.6 % (0.0-11.0); NEUTROPHILS % 67.8 % (39.0-77.0); PLATELET COUNT 177 10^3/UL (140-415); POSITIVE DIFF @See below; RED BLOOD COUNT 2.43 10^6/ul (4.70-6.10); RED CELL DISTRIBUTION WIDTH 18.9 % (11.5-14.5); WHITE BLOOD COUNT 9.1 10^3/ul (4.8-10.8)
[2016-10-20 07:59] LABS: IRON 38 ug/dl (35-150)
[2016-10-20 08:04] LABS: ALBUMIN/GLOBULIN RATIO 1.07; BILIRUBIN,INDIRECT 0.1 mg/dl (0-1.1); BILIRUBIN,TOTAL 0.1 mg/dl (0.2-1.3); CALCIUM 8.6 mg/dl (8.4-10.2); CHOL/HDL RATIO 1.9 RATIO; CREATININE 4.12 mg/dl (0.61-1.24); MAGNESIUM 2.2 mg/dl (1.7-2.5); PHOSPHORUS 4.4 mg/dl (2.5-4.9); POTASSIUM 3.6 mmol/L (3.5-5.1); TOTAL PROTEIN 5.8 g/dl (6.1-8.1)
[2016-10-20 08:10] LABS: TOTAL IRON BINDING CAPACITY 201 ug/dl (241-421)
[2016-10-20 08:33] LABS: THYROID STIMULATING HORMONE 0.762 MIU/L (0.465-4.680)
--- NOTE | 2016-10-20 08:54 | CONS ---
Date/Time of Note Date/Time of Note DATE: 10/20/16 TIME: 08:52 Assessment/Plan Assessment/Plan Additional Assessment/Plan 1. CHF resolving 2. ND, heart cath to be done today 3. CKD, to have HD post cath. 4. Anemia, will start iron. Consultation Date/Type/Reason Admit Date/Time Oct 19, 2016 at 07:51 Initial Consult Date 10/19/16 Type of Consultation: Cardiology Referring Provider: EDDIE ULLOA NP Detailed Summary Respiratory: shortness of breath (is mild), No cough Cardiovascular: No chest pain Gastrointestinal: no complaints Genitourinary: no complaints Exam/Review of Systems Vital Signs Vitals Vital Signs Date Time Temp Pulse Resp B/P Pulse Ox O2 Delivery O2 Flow Rate FiO2 10/20/16 08:46 83 18 98 Nasal Cannula 2.0 10/20/16 07:35 98.1 151/58 10/19/16 16:16 40 Intake and Output 10/19/16 10/19/16 10/20/16 14:59 22:59 06:59 Intake Total 1000 ml Output Total 4500 ml Balance -3500 ml Exam Neck: No jvd Respiratory: diminished breath sounds, other (few rales at the bases) Cardiovascular: regular rate and rhythm, No S3, No S4, No systolic murmur Gastrointestinal: soft Extremities: No edema (and no calf tend) Results Result Diagram: 10/20/16 0659 10/20/16 0659 Results 24 hrs Laboratory Tests Test 10/19/16 09:03 10/19/16 11:00 10/19/16 12:10 10/19/16 13:11 Lactic Acid Level 0.9 1.0 Urine Color YELLOW Urine Clarity CLOUDY A Urine pH 5.0 Urine Specific [place] 1.017 Urine Ketones TRACE A Urine Nitrite NEGATIVE Urine Bilirubin NEGATIVE Urine Urobilinogen NEGATIVE Urine Leukocyte Esterase NEGATIVE Urine Microscopic RBC 2 Urine Microscopic WBC 2 Urine Bacteria FEW A Urine Hemoglobin 1+ H Urine Glucose 1+ H Urine Total Protein 3+ H Creatine Kinase 138 Creatine Kinase Index 7.2 Creatinine Kinase MB (Mass) 9.91 H Troponin I 2.750 *H B-Type Natriuretic Peptide 66438 H Bedside Glucose 125 Test 10/19/16 14:10 10/19/16 15:45 10/19/16 17:11 10/19/16 21:36 Creatine Kinase 143 Creatine Kinase Index 6.4 Creatinine Kinase MB (Mass) 9.21 H Troponin I 2.980 *H Prothrombin Time 13.4 Prothrombin Time Ratio 1.0 INR International Normalized Ratio 1.02 Activated Partial Thromboplast Time 31.2 Bedside Glucose 131 99 Test 10/20/16 00:30 10/20/16 01:26 10/20/16 06:08 10/20/16 06:59 Activated Partial Thromboplast Time 68.9 H Bedside Glucose 117 128 White Blood Count 9.1 # Red Blood Count 2.43 L Hemoglobin 8.4 L Hematocrit 26.5 L Mean Corpuscular Volume 109.1 H Mean Corpuscular Hemoglobin 34.6 H Mean Corpuscular Hemoglobin Concent 31.7 L Red Cell Distribution Width 18.9 H Platelet Count 177 # Mean Platelet Volume 9.7 Neutrophils % 67.8 Lymphocytes % 13.2 L Monocytes % 13.6 H Eosinophils % 4.3 Basophils % 0.3 Nucleated Red Blood Cells % 0.0 Neutrophils # (Manual) 6.2 Lymphocytes # 1.2 Monocytes # 1.2 H Eosinophils # 0.4 Basophils # 0.0 Nucleated Red Blood Cells # 0.0 Sodium Level 140 Potassium Level 3.6 Chloride Level 100 Carbon Dioxide Level 24 Anion Gap 20 H Blood Urea Nitrogen 30 H Creatinine 4.12 H Glucose Level 132 Calcium Level 8.6 Phosphorus Level 4.4 Magnesium Level 2.2 Iron Level 38 Total Iron Binding Capacity 201 L Percent Iron Saturation 19 L Ferritin 592.0 H Total Bilirubin 0.1 L Direct Bilirubin 0.00 Indirect Bilirubin 0.1 Aspartate Amino Transf (AST/SGOT) 55 H Alanine Aminotransferase (ALT/SGPT) 52 Alkaline Phosphatase 279 H Total Protein 5.8 #L Albumin 3.0 L Globulin 2.80 Albumin/Globulin Ratio 1.07 Triglycerides Level 103 Cholesterol Level 101 LDL Cholesterol, Calculated 28 HDL Cholesterol 52 Cholesterol/HDL Ratio 1.9 Vitamin B12 Level Pending Thyroid Stimulating Hormone (TSH) 0.762 Medications Medications Current Medications Ondansetron HCl (Zofran Inj) 4 mg Q6H PRN IV NAUSEA AND/OR VOMITING; Start at 10:00 Morphine Sulfate (morphine) 2 mg Q4H PRN IV SEVERE PAIN LEVEL 7-10; Start 10/19 at 10:00 Pantoprazole (Protonix Iv) 40 mg DAILY@06 IV Last administered on 10/20/16 06: 06; Admin Dose 40 MG; Start 10/19/16 at 11:00 Aspirin (Aspirin) 81 mg DAILY PO ; Start 10/19/16 at 10:30 Hydralazine HCl 10 mg 10 mg Q6H PRN IV SBP>160; Start 10/19/16 at 10:00 Cefepime HCl (Maxipime 1gm/50 ml (Pmx)) 50 ml @ 100 mls/hr Q24H IVPB Last administered on 10/19/16 11:23; Admin Dose 100 MLS/HR; Start 10/19/16 at 10:00 Diagnostic Test (Pha) (Accu-Chek) 1 ea 02 XX ; Start 10/20/16 at 02:00 Insulin Aspart (Novolog Insulin Pen) NOVOLOG *MILD* ALGORI... Q4 SC ; Start at 13:00 Atorvastatin Calcium (Lipitor) 40 mg QHS PO ; Start 10/19/16 at 21:00 Epoetin Guy (Epogen (Esrd)) 10,000 units MoWeFr@17 SC Last administered on 01:17; Admin Dose 10,000 UNITS; Start 10/19/16 at 17:00 Metoprolol Tartrate 25 mg 25 mg BID PO Last administered on 10/19/16 23:04; Admin Dose 25 MG; Start 10/19/16 at 22:30 Amiodarone HCl/ Dextrose (Cordarone Iv/ D5W) 500 ml @ 33.4 mls/hr [id number] IV Last administered on 10/20/16 00:39; Admin Dose 33.4 MLS/HR; Start 10/19/16 at 23:30 Miscellaneous Information 1 ea NOTE XX ; Start 10/20/16 at 06:30 Glucose (Glutose) 15 gm Q15M PRN PO DECREASED GLUCOSE; Start 10/20/16 at 06:30 Glucose (Glutose) 22.5 gm Q15M PRN PO DECREASED GLUCOSE; Start 10/20/16 at 06: 30 Dextrose (D50w Syringe) 25 ml Q15M PRN IV DECREASED GLUCOSE; Start 10/20/16 at 06:30 Dextrose (D50w Syringe) 50 ml Q15M PRN IV DECREASED GLUCOSE; Start 10/20/16 at 06:30 Glucagon (Glucagen) 1 mg Q15M PRN IM DECREASED GLUCOSE; Start 10/20/16 at 06:30 Glucose (Glutose) 15 gm Q15M PRN BUCCAL DECREASED GLUCOSE; Start 10/20/16 at 06 :30 RIVERA GALVEZ MD Oct 20, 2016 08:54
--- NOTE | 2016-10-20 09:16 | CONS ---
DATE OF ADMISSION: 10/19/2016 DATE OF CONSULTATION: 10/19/2016 This is a nephrology consult. REASON FOR CONSULTATION: End-stage renal disease. PHYSICIAN REQUESTING CONSULTATION: . HISTORY OF PRESENT ILLNESS: This is an 84-year-old male with a past medical history of end-stage renal disease. The patient was placed on hemodialysis. History of CHF, history of pneumonia, hypertension, diabetes. He presents to [facility] with shortness of breath, low-grade fever. The patient apparently was recently admitted at [facility], where he was initiated hemodialysis. The patient was subsequently discharged and had worsening shortness of breath. As a result, he came to the hospital. The patient was recently treated for pneumonia with antibiotics at the outside facility. Upon arrival, the patient was noted to be in respiratory failure. He was placed on BiPAP. Chest x-ray in the emergency room showed pulmonary edema and small pleural effusions. In the emergency room, patient was given diuretics as well as aspirin. He was also noted in the emergency room to have significant EKG changes. PAST MEDICAL HISTORY: As stated above. History of end-stage renal disease. History of pneumonia, CHF, hypertension, diabetes. PAST SURGICAL HISTORY: Status post Perma-Cath placement. FAMILY HISTORY: Noncontributory. SOCIAL HISTORY: Does not drink, smoke, or do drugs. MEDICATION: Reviewed. REVIEW OF SYSTEMS: A 14-point review of systems conducted. Pertinent positives in HPI, otherwise negative. PHYSICAL EXAMINATION: VITAL SIGNS: Blood pressure is 139/76, pulse 92, respirations 29, temperature 98.5. HEENT: Head is normocephalic. NECK: Supple. HEART: Regular rate. LUNGS: Diminished breath sounds at the base. ABDOMEN: Soft, nontender to palpation. No rebound or guarding. EXTREMITIES: Negative for clubbing, cyanosis. Positive edema. DERMATOLOGIC: Clean. No rashes. MUSCULOSKELETAL: No joint effusion. NEUROLOGIC: No change in exam. LABORATORY AND DIAGNOSTIC DATA: White count 17.6, hemoglobin 9.3, hematocrit 29.7, platelet count 229,000. Sodium 138, potassium 4.7, chloride 95, BUN 32, creatinine 4.69, troponin 0.491. Imaging studies in [facility]. ASSESSMENT AND PLAN: 1. This is an 84-year-old male who presents end- stage renal disease. The patient has access Perma-Cath. The patient's last hemodialysis was 2 days ago. Plan is for dialysis today for volume removal . Will anticipate 2-3 L of ultrafiltration with hemodialysis. 2. Volume overload, congestive heart failure (CHF). The patient's chest x-ray shows evidence of pulmonary congestion. Plan is for hemodialysis, as stated above. Will ultrafiltrate for 2-3 L. 3. Mineral bone disorder. Monitor calcium and phosphorus levels. 4. Anemia. Monitor H and H levels. 5. Acute respiratory failure secondary to volume overload, congestive heart failure (CHF). Will continue BiPAP. Continue ultrafiltration, as stated above. 6. Non-ST elevation myocardial infarction (Non-STEMI). Will continue current medical management. Follow up with Cardiology. 7. Hypertension. Continue current blood pressure regimen. 8. Diabetes. Continue Accu-Chek and sliding scale. 9. Dyslipidemia. Continue statin therapy. Thank you very much for this interesting consult. It will be a pleasure to follow the patient with you throughout the hospital course. Dictated By: Brian Galaviz DO /raad/vivi /Document#: [id number]
[2016-10-20] MEDS: ASPIRIN 81 MG TAB PO SCH (09:22)
[2016-10-20] MEDS: CEFEPIME 1GM/50 ML (PMX) 50 ML IVPB SCH (09:23)
[2016-10-20] MEDS: METOPROLOL 25 MG TAB PO SCH ×2 (09:23→20:59)
[2016-10-20] MEDS ORDERED: CLOPIDOGREL 300 MG TAB ONE (12:08)
[2016-10-20] MEDS ORDERED: BIVALIRUDIN 250MG /NS 50 ML 50 ML IVPB ONE (12:08)
[2016-10-20] MEDS ORDERED: ASPIRIN 81 MG TAB ONE (12:12)
[2016-10-20] MEDS ORDERED: ACETAMINOPHEN 325 MG TAB PO PRN (13:30)
[2016-10-20] MEDS ORDERED: HEPARIN 1000 UNITS/ML 10 ML INJ ONE (13:34)
[2016-10-20] MEDS ORDERED: IODIXANOL LOCM 100 ML BTL ONE (13:34)
[2016-10-20] MEDS ORDERED: HEPARIN 1000 UNITS/NS (A-LINE) 1,000 ML ONE (13:34)
[2016-10-20] MEDS ORDERED: LIDOCAINE 1% (MDV) 20 ML INJ ONE (13:34)
[2016-10-20] MEDS ORDERED: NITROGLYCERIN (IC) 100 MCG/ML INJ ONE (13:34)
[2016-10-20] MEDS ORDERED: VERAPAMIL 5 MG INJ ONE (13:34)
[2016-10-20] MEDS ORDERED: IOHEXOL 350MG/ML 50 ML BTL ONE (13:34)
--- NOTE | 2016-10-20 13:49 | OPR ---
Date/Time of Note Date/Time of Note DATE: 10/20/16 TIME: 13:35 Operative Report Free Text/Dictation Procedure Date: 10/20/2016 Procedures Performed: 1)Left heart catheterization with selective left and right coronary angiography. 2)Balloon angioplasty and stenting of the prox Cx with a Synergy 2.5 x 16 stent. 3)Balloon angioplasty and stenting of the prox to mid RCA with a Synergy 2.75 x 38 and 3.0 x 16 stent (overlapping). Pre-operative Diagnosis:NSTEMI Post-operative Diagnosis:NSTEMI Indications:85 yo M with a h/o DM, HTN, recent ESRD on HD few weeks prior, who presented with SOB and was diagnosed with acute decompensated heart failure and NSTEMI (trop 3). Description of Procedure: After informed consent, the patient was brought to the cardiac catheterization lab. The procedure site was prepped and draped in usual manner. 2 mL lidocaine was injected into the left wrist. Next using the posterior wall technique, the 6/5 guinean sheath was inserted into the left radial artery. Next using the JL4 and JR4, selective angiography of the left and right coronary arteries were obtained. The pigtail was then advanced into the ventricle and hemodynamics obtained. Left ventricle angiography was not obtained. The decision was made to proceed with PCI of the Cx. A JL 4.0 guide was advanced and engaged into the left coronary artery. After appropriate anticoagulation and antiplatelets were given, the BMW angioplasty wire was advanced past the lesion. Next the 2.0 X 12 balloon was used to dilate the lesion times 2 at a maximum of 8 radha. The stent would not cross so a Mailman was used asa erick wire. The stent again would not cross so the lesion was dilated with a 2.5 x 8 balloon. Subsequently, the Synergy 2.5 x 16 stent was advanced to the lesion and deployed at nominal radha after the Mailman was removed. Next the stent was post dilated with the 2.75 X 8 noncompliant balloon times 3 at a maximum of 14 radha. Final angiography revealed MICHELLE 3 flow, no edge dissection, and appropriate stent expansion. The decision was made to proceed with PCI of the RCA. A JR4 guide was advanced and engaged into the right coronary artery. The PT2 moderate support angioplasty wire was advanced past the lesion. Next the 2.5 X 12 balloon was used to dilate the lesion times 6 at a maximum of 12 radha. Subsequently, the Synergy 2.75 x 38 stent was advanced to the lesion and deployed at 12 radha. The stent balloon was used to dilate the proximal edge of the stent. Subsequently, the Synergy 3.0 x 16 stent was advanced to the lesion and deployed at 12 radha ( overlapping). Next the stent was post dilated with the 3.0 X 15 noncompliant balloon times 6 at a maximum of 16 radha. Final angiography revealed MICHELLE 3 flow, no edge dissection, and appropriate stent expansion. Next all equipment was removed and hemostasis was achieved by TR band. Findings: Anatomy/Hemodynamics: Left main: distal 30% LAD: ostial 20%, luminal irregularities Diagonal:luminal irregularities Circumflex: ostial 20%, prox 90% eccentric lesion Obtuse marginal: prox 40%.Two very small OMs with diffuse disease RCA: prox to mid-distal very long up to 90% lesion PDA: 30% plaquing PLV:30% plaquing LV angiography:note done LV-Ao: no gradient LVEDP:24 mmHg Contrast used:200 mL Fluoroscopy time:22.3 mins Medications used: heparin 2000 units, verapamil 2.5 and NTG 200 for radial coacktail Angiomax bolus plus drip ASA 81mg (already given load and another 81mg in am) plavix 600mg Equipment used: 6 guinean JL 4 and JR4 guide BMW, PT2 moderate support and Mailman angioplasty wire 2 x 12, 2.5 x 8, 2.5 x 12 balloon Synergy 2.5 x 16 DEEPA (Cx) Synergy 2.75 x 38 and 3.0 x 16 overlapping DEEPA stents (RCA) 2.75 x 8 and 3.0 x 15 noncompliant balloon Assessment: NSTEMI s/p PCI of Circumflex and RCA lesions CAD: no significant large vessel residual disease (has small vessel disease) ADHF: EDP 24, mild CHF by exam ESRD on HD Paroxysmal afib: back in sinus Plan: -ICU monitoring -ASA (possibly d/c in one month to avoid triple therapy) -plavix at least one year NAEEM WRAY Oct 20, 2016 13:49
[2016-10-20] MEDS ORDERED: BISACODYL 10 MG SUPP PR ONE (15:00)
[2016-10-20] MEDS: SOD FERRIC GLUC COMPLX 125 MG in SOD CHLORIDE 0.9% 100 ML IVPB SCH (15:26)
[2016-10-20] MEDS ORDERED: FUROSEMIDE 20 MG INJ IV ONE (19:00)
[2016-10-20] MEDS: ATORVASTATIN 40 MG TAB PO SCH (20:59)
--- NOTE | 2016-10-20 23:14 | PN ---
DATE: 10/20/2016 SUBJECTIVE DATA: The patient has been transferred to the intensive care unit after having had a coronary angiogram, status post balloon angioplasty and stenting of proximal circumflex and mid RCA by Dr. Navarrete and Dr. Irizarry's recommendations are greatly appreciated. The patient is awake and alert. Denies any chest pain, no shortness of breath. PHYSICAL: On physical exam, patient is in no acute distress. VITAL SIGNS: Temperature 98.1, blood pressure 151/58, O2 sat 96 percent on O2 by nasal cannula 2 L. NECK: JVD is not increased. CHEST: Clinically clear anteriorly. HEART: S1, S2. No definite gallops. ABDOMEN: Soft, nontender. No hepatosplenomegaly. EXTREMITIES: No edema. Homans negative. LABORATORY: WBC count 9.1, hematocrit 26.5, MCV 109.1, platelet count 177,000. Sodium 140, potassium 3.6, BUN 30, creatinine 4.12, glucose . Hemoglobin A1c is 5.7, vitamin D 63.5, CK-MB yesterday was 9.21 along with troponin 2.98. IMPRESSION: 1. Acute non-ST elevation myocardial infarction with congestive heart failure with respiratory failure. 2. Status post recent pneumonia. 3. Hypertension. 4. Diabetes mellitus type 2. 5. Diabetic dyslipidemia. PLAN: We will continue Nephrology recommendations for hemodialysis. Closely monitor for failure and treat. Continue IV antibiotics presently. Repeat chest x-ray in a.m. The patient also has severe constipation. Will order prophylaxis suppository and enema as necessary. Dictated By: Saeid Galeas MD /raad/ /Document#: [id number]
[2016-10-21] VITALS (32 sets, daily range): BP systolic 78–169; BP diastolic 35–79; PULSE 65–91; RESP 15–29
[2016-10-21] MEDS: ALBUTEROL/IPRATROPIUM (NEB) 3 ML AMP HHN SCH ×6 (00:07→20:35)
[2016-10-21] MEDS ORDERED: ACCU-CHEK XX SCH (02:00)
[2016-10-21] MEDS: ACCU-CHEK XX SCH (02:20)
[2016-10-21 06:32] LABS: BASOPHILS % 0.3 % (0.0-2.0); EOSINOPHILS # 0.6 10^3/ul (0.0-0.5); EOSINOPHILS % 5.7 % (0.0-7.0); HEMATOCRIT 26.1 % (42.0-52.0); HEMOGLOBIN 8.4 g/dl (14.0-18.0); LYMPHOCYTES # 1.5 10^3/ul (0.8-2.9); LYMPHOCYTES % 14.4 % (15.0-51.0); MEAN CORPUSCULAR HEMOGLOBIN 34.9 pg (29.0-33.0); MEAN CORPUSCULAR HGB CONC 32.2 g/dl (32.0-37.0); MEAN CORPUSCULAR VOLUME 108.3 fl (82.0-101.0); MEAN PLATELET VOLUME 9.9 fl (7.4-10.4); MONOCYTE # 1.2 10^3/ul (0.3-0.9); MONOCYTES % 11.4 % (0.0-11.0); NEUTROPHILS % 67.3 % (39.0-77.0); PLATELET COUNT 185 10^3/UL (140-415); POSITIVE DIFF @See below; RED BLOOD COUNT 2.41 10^6/ul (4.70-6.10); RED CELL DISTRIBUTION WIDTH 18.8 % (11.5-14.5); WHITE BLOOD COUNT 10.5 10^3/ul (4.8-10.8)
[2016-10-21 07:02] LABS: CALCIUM 8.2 mg/dl (8.4-10.2); CREATININE 3.32 mg/dl (0.61-1.24); POTASSIUM 3.6 mmol/L (3.5-5.1)
--- NOTE | 2016-10-21 07:31 | CONS ---
Date/Time of Note Date/Time of Note DATE: 10/21/16 TIME: 07:24 Assessment/Plan Assessment/Plan Chief Complaint/Hosp Course NSTEMI: Trop peak of 2.9. S/p cath with PCI of prox Cx and prox to mid RCA . Acute on chronic diastolic heart failure: Possibly secondary to missed HD session Wednesday. Possibly ischemia driven. Now better but still mild overload Paroxysmal atrial fibrillation: Converted to afib 10/19. Back in sinus after amiodarone. Will need senior living anticoagulation. Acute respiratory failure: Due to heart failure as above. On BiPAP initially, now off and stable respiratory status ESRD on HD: recently started. DM HTN HL -will likely need HD again today -ASA, plavix -lipitor -increase to metoprolol 50mg BID -will likely start Eliquis 2.5mg BID tomorrow if no bleeding issues Problems: Consultation Date/Type/Reason Admit Date/Time Oct 19, 2016 at 07:51 Initial Consult Date 10/19/16 Type of Consultation: Cardiology Referring Provider: EDDIE ULLOA NP 24 HR Interval Summary Free Text/Dictation Some tachypnea again overnight. Had HD last night. No chest pain. Exam/Review of Systems Vital Signs Vitals Vital Signs Date Time Temp Pulse Resp B/P Pulse Ox O2 Delivery O2 Flow Rate FiO2 10/21/16 06:00 83 18 143/59 99 Room Air 10/21/16 05:00 2.0 10/21/16 04:00 98.5 10/19/16 16:16 40 Intake and Output 10/20/16 10/20/16 10/21/16 15:00 23:00 07:00 Intake Total 950 ml 200 ml Output Total 275 ml 3630 ml 230 ml Balance -275 ml -2680 ml -30 ml Exam Constitutional: alert, oriented Head: atraumatic, normocephalic Neck: jvd (8cm) Respiratory: crackles/rales, diminished breath sounds, No clear to auscultation Cardiovascular: regular rate and rhythm, No edema Gastrointestinal: non-tender, soft Musculoskeletal: nl extremities to inspection Neurological: nl mental status, nl speech Results Result Diagram: 10/21/16 0554 10/21/16 0554 Results 24 hrs Laboratory Tests Test 10/20/16 09:14 10/20/16 14:13 10/20/16 18:03 10/20/16 21:01 Bedside Glucose 149 140 151 188 Test 10/21/16 02:12 10/21/16 05:54 Bedside Glucose 162 White Blood Count 10.5 Red Blood Count 2.41 L Hemoglobin 8.4 L Hematocrit 26.1 L Mean Corpuscular Volume 108.3 H Mean Corpuscular Hemoglobin 34.9 H Mean Corpuscular Hemoglobin Concent 32.2 Red Cell Distribution Width 18.8 H Platelet Count 185 Mean Platelet Volume 9.9 Neutrophils % 67.3 Lymphocytes % 14.4 L Monocytes % 11.4 H Eosinophils % 5.7 Basophils % 0.3 Nucleated Red Blood Cells % 0.0 Neutrophils # (Manual) 7.1 Lymphocytes # 1.5 Monocytes # 1.2 H Eosinophils # 0.6 H Basophils # 0.0 Nucleated Red Blood Cells # 0.0 Sodium Level 141 Potassium Level 3.6 Chloride Level 99 Carbon Dioxide Level 28 Anion Gap 18 H Blood Urea Nitrogen 22 H Creatinine 3.32 H Glucose Level 127 Calcium Level 8.2 L Medications Medications Current Medications Ondansetron HCl (Zofran Inj) 4 mg Q6H PRN IV NAUSEA AND/OR VOMITING; Start at 10:00 Morphine Sulfate (morphine) 2 mg Q4H PRN IV SEVERE PAIN LEVEL 7-10; Start 10/19 at 10:00 Aspirin (Aspirin) 81 mg DAILY PO Last administered on 10/20/16 09:22; Admin Dose 81 MG; Start 10/19/16 at 10:30 Hydralazine HCl 10 mg 10 mg Q6H PRN IV SBP>160; Start 10/19/16 at 10:00 Cefepime HCl (Maxipime 1gm/50 ml (Pmx)) 50 ml @ 100 mls/hr Q24H IVPB Last administered on 10/20/16 09:23; Admin Dose 100 MLS/HR; Start 10/19/16 at 10:00 Atorvastatin Calcium (Lipitor) 40 mg QHS PO Last administered on 10/20/16 20: 59; Admin Dose 40 MG; Start 10/19/16 at 21:00 Epoetin Guy (Epogen (Esrd)) 10,000 units MoWeFr@17 SC Last administered on 01:17; Admin Dose 10,000 UNITS; Start 10/19/16 at 17:00 Miscellaneous Information 1 ea NOTE XX ; Start 10/20/16 at 06:30 Glucose (Glutose) 15 gm Q15M PRN PO DECREASED GLUCOSE; Start 10/20/16 at 06:30 Glucose (Glutose) 22.5 gm Q15M PRN PO DECREASED GLUCOSE; Start 10/20/16 at 06: 30 Dextrose (D50w Syringe) 25 ml Q15M PRN IV DECREASED GLUCOSE; Start 10/20/16 at 06:30 Dextrose (D50w Syringe) 50 ml Q15M PRN IV DECREASED GLUCOSE; Start 10/20/16 at 06:30 Glucagon (Glucagen) 1 mg Q15M PRN IM DECREASED GLUCOSE; Start 10/20/16 at 06:30 Glucose 15 gm 15 gm Q15M PRN BUCCAL DECREASED GLUCOSE; Start 10/20/16 at 06:30 Ferric Sodium Gluconate Complex/ Sodium Chloride (Ferrlecit/NS) 110 ml @ 110 mls/hr Q24H IVPB Last administered on 10/20/16 15:26; Admin Dose 110 MLS/HR; Start 10/20/16 at 11:00; Stop 10/24/16 at 11:59 Famotidine (Pepcid Iv) 20 mg DAILY IV ; Start 10/21/16 at 09:00 Diagnostic Test (Pha) (Accu-Chek) 1 ea 02 XX Last administered on 10/21/16 02: 20; Admin Dose 1 EA; Start 10/21/16 at 02:00 Clopidogrel Bisulfate (plaVIX) 75 mg DAILY PO ; Start 10/21/16 at 09:00 Acetaminophen (Tylenol Tab) 650 mg Q4H PRN PO NON-CARDIAC PAIN LEVEL (1-3); Start 10/20/16 at 13:30 Metoprolol Tartrate (Lopressor) 50 mg BID PO ; Start 10/21/16 at 09:00 NAEEM WRAY Oct 21, 2016 07:31
[2016-10-21] MEDS: INSULIN ASPART [NOVOLOG] 3 ML PEN SC SCH ×4 (07:35→21:32)
--- NOTE | 2016-10-21 07:45 | RADRPT ---
PROCEDURE: XR Chest. CLINICAL INDICATION: Shortness of breath. TECHNIQUE: Single frontal view. COMPARISON: None. FINDINGS: The right subclavian double-lumen dialysis central venous catheter is unchanged. The cardiomediastinal silhouette is within normal limits. The aortic arch is calcified. Biapical bul lous changes and right upper lobe scarring is unchanged. Pulmonary edema is worse than seen previous ly. Bibasilar atelectasis is worse than seen previously with right worse than left. There is a mod erate right pleural effusion and small left pleural effusion. IMPRESSION: 1. Worse appearance of the lungs. Right is worse than left. 2. Larger pleural effusions with right larger than left. RPTAT: QQ .Barry Marroquin MD, MD Date Time Electronically viewed and signed by .Barry Marroquin MD, MD on 10/21/2016 07:45 .R/
[2016-10-21] MEDS ORDERED: POTASSIUM CHLORIDE (SR) 10 MEQ TAB PO ONE (09:00)
[2016-10-21] MEDS ORDERED: FAMOTIDINE 20 MG INJ IV SCH (09:00)
--- NOTE | 2016-10-21 09:02 | CONS ---
Date/Time of Note Date/Time of Note DATE: 10/21/16 TIME: 08:58 Assessment/Plan Assessment/Plan Additional Assessment/Plan 1. Acute GA, 2 stents were placed. 2. Atrial fib now in sinus rhythm 3. DM, sugar control is acceptable 4. BP is controlled 5. Anemia, noted, receiving iv iron 6. Although cxr is abnl bedside exam is unremarkable but will hd today as interstitial edema likely present 7. I ordered PT to see him and mobilize 8. DC chapman once up and out of bed Consultation Date/Type/Reason Admit Date/Time Oct 19, 2016 at 07:51 Initial Consult Date 10/19/16 Type of Consultation: Cardiology Referring Provider: EDDIE ULLOA NP 24 HR Interval Summary Constitutional: other (feels very weak) Detailed Summary Respiratory: cough (that is not productive), No pleuritic pain Cardiovascular: No chest pain Gastrointestinal: no complaints Genitourinary: no complaints Exam/Review of Systems Vital Signs Vitals Vital Signs Date Time Temp Pulse Resp B/P Pulse Ox O2 Delivery O2 Flow Rate FiO2 10/21/16 08:35 76 12 99 Nasal Cannula 2.0 10/21/16 06:00 143/59 10/21/16 04:00 98.5 10/19/16 16:16 40 Intake and Output 10/20/16 10/20/16 10/21/16 15:00 23:00 07:00 Intake Total 950 ml 200 ml Output Total 275 ml 3630 ml 230 ml Balance -275 ml -2680 ml -30 ml Exam Neck: No jvd (but HJR is present) Genitourinary - Male: other (chapman in place) Results Result Diagram: 10/21/16 0554 10/21/16 0554 Results 24 hrs Laboratory Tests Test 10/20/16 09:14 10/20/16 14:13 10/20/16 18:03 10/20/16 21:01 Bedside Glucose 149 140 151 188 Test 10/21/16 02:12 10/21/16 05:54 10/21/16 08:26 Bedside Glucose 162 134 White Blood Count 10.5 Red Blood Count 2.41 L Hemoglobin 8.4 L Hematocrit 26.1 L Mean Corpuscular Volume 108.3 H Mean Corpuscular Hemoglobin 34.9 H Mean Corpuscular Hemoglobin Concent 32.2 Red Cell Distribution Width 18.8 H Platelet Count 185 Mean Platelet Volume 9.9 Neutrophils % 67.3 Lymphocytes % 14.4 L Monocytes % 11.4 H Eosinophils % 5.7 Basophils % 0.3 Nucleated Red Blood Cells % 0.0 Neutrophils # (Manual) 7.1 Lymphocytes # 1.5 Monocytes # 1.2 H Eosinophils # 0.6 H Basophils # 0.0 Nucleated Red Blood Cells # 0.0 Sodium Level 141 Potassium Level 3.6 Chloride Level 99 Carbon Dioxide Level 28 Anion Gap 18 H Blood Urea Nitrogen 22 H Creatinine 3.32 H Glucose Level 127 Calcium Level 8.2 L Random Vancomycin Level 6.8 Medications Medications Current Medications Ondansetron HCl (Zofran Inj) 4 mg Q6H PRN IV NAUSEA AND/OR VOMITING; Start at 10:00 Morphine Sulfate (morphine) 2 mg Q4H PRN IV SEVERE PAIN LEVEL 7-10; Start 10/19 at 10:00 Aspirin (Aspirin) 81 mg DAILY PO Last administered on 10/20/16 09:22; Admin Dose 81 MG; Start 10/19/16 at 10:30 Hydralazine HCl 10 mg 10 mg Q6H PRN IV SBP>160; Start 10/19/16 at 10:00 Cefepime HCl (Maxipime 1gm/50 ml (Pmx)) 50 ml @ 100 mls/hr Q24H IVPB Last administered on 10/20/16 09:23; Admin Dose 100 MLS/HR; Start 10/19/16 at 10:00 Atorvastatin Calcium (Lipitor) 40 mg QHS PO Last administered on 10/20/16 20: 59; Admin Dose 40 MG; Start 10/19/16 at 21:00 Epoetin Guy (Epogen (Esrd)) 10,000 units MoWeFr@17 SC Last administered on 01:17; Admin Dose 10,000 UNITS; Start 10/19/16 at 17:00 Miscellaneous Information 1 ea NOTE XX ; Start 10/20/16 at 06:30 Glucose (Glutose) 15 gm Q15M PRN PO DECREASED GLUCOSE; Start 10/20/16 at 06:30 Glucose (Glutose) 22.5 gm Q15M PRN PO DECREASED GLUCOSE; Start 10/20/16 at 06: 30 Dextrose (D50w Syringe) 25 ml Q15M PRN IV DECREASED GLUCOSE; Start 10/20/16 at 06:30 Dextrose (D50w Syringe) 50 ml Q15M PRN IV DECREASED GLUCOSE; Start 10/20/16 at 06:30 Glucagon (Glucagen) 1 mg Q15M PRN IM DECREASED GLUCOSE; Start 10/20/16 at 06:30 Glucose 15 gm 15 gm Q15M PRN BUCCAL DECREASED GLUCOSE; Start 10/20/16 at 06:30 Ferric Sodium Gluconate Complex/ Sodium Chloride (Ferrlecit/NS) 110 ml @ 110 mls/hr Q24H IVPB Last administered on 10/20/16 15:26; Admin Dose 110 MLS/HR; Start 10/20/16 at 11:00; Stop 10/24/16 at 11:59 Famotidine (Pepcid Iv) 20 mg DAILY IV ; Start 10/21/16 at 09:00 Diagnostic Test (Pha) (Accu-Chek) 1 ea 02 XX Last administered on 10/21/16 02: 20; Admin Dose 1 EA; Start 10/21/16 at 02:00 Clopidogrel Bisulfate (plaVIX) 75 mg DAILY PO ; Start 10/21/16 at 09:00 Acetaminophen (Tylenol Tab) 650 mg Q4H PRN PO NON-CARDIAC PAIN LEVEL (1-3); Start 10/20/16 at 13:30 Metoprolol Tartrate (Lopressor) 50 mg BID PO ; Start 10/21/16 at 09:00 Potassium Chloride (Klor-Con 10) 10 meq ONCE ONCE PO ; Start 10/21/16 at 09:00 ; Stop 10/21/16 at 09:01 RIVERA GALVEZ MD Oct 21, 2016 09:02
[2016-10-21] MEDS: METOPROLOL 50 MG TAB PO SCH ×2 (09:28→21:26)
[2016-10-21] MEDS: CLOPIDOGREL 75 MG TAB PO SCH (09:28)
[2016-10-21] MEDS: ASPIRIN 81 MG TAB PO SCH (09:32)
[2016-10-21] MEDS: CEFEPIME 1GM/50 ML (PMX) 50 ML IVPB SCH (09:39)
--- NOTE | 2016-10-21 09:58 | PN ---
DATE: 10/21/2016 SUBJECTIVE DATA: The patient is in ICU. Overall feels better. Denies any chest pain. Denies any shortness of breath. Did have a bowel movement. OBJECTIVE DATA: GENERAL: Patient is afebrile, awake, alert. VITAL SIGNS: Temperature 98.5, blood pressure 157/69, O2 sat 97 percent on 2 L nasal cannula. HEENT: Throat without exudates. NECK: JVD is not increased. CHEST: Reveals occasional crackles in the bases. HEART: S1, S2. No rubs or gallops. ABDOMEN: Soft, nontender. No hepatosplenomegaly. EXTREMITIES: No edema. Homans sign is negative. NEUROLOGIC: No localizing or lateralizing signs. LABORATORY AND DIAGNOSTIC DATA: WBC count 10.5, hematocrit 26.1, platelet count 183,000. Sodium 141, potassium 3.6, BUN 22, creatinine 3.32, glucose 188, 162 today. Chest x-ray, portable, this morning shows persistent pulmonary edema, moderate right pleural effusion, and a small left pleural effusion. IMPRESSION: 1. Acute [id number] myocardial infarction. 2. Congestive heart failure with respiratory failure, improving, status post recent pneumonia. 3. Status post coronary angiogram with balloon angioplasty and stenting of proximal circumflex and mid right coronary artery. 4. Diabetes mellitus type 2, well controlled. 5. Chronic kidney disease. 6. Diabetic dyslipidemia. PLAN: Continue statins, Plavix and aspirin. Anticoagulation per Dr. Navarrete. Patient likely will need hemodialysis. We will discuss with Dr. Zepeda and follow his recommendations. Dictated By: Saeid Galeas MD /raad/amelia /Document#: [id number]
[2016-10-21] MEDS ORDERED: VANCOMYCIN 1 GM in NS 250 ML IVPB SCH (10:00)
[2016-10-21] MEDS: SOD FERRIC GLUC COMPLX 125 MG in SOD CHLORIDE 0.9% 100 ML IVPB SCH (14:40)
[2016-10-21] MEDS: EPOETIN 10000 UNITS/1 ML INJ (ESRD) SC SCH (18:33)
[2016-10-21] MEDS: ATORVASTATIN 40 MG TAB PO SCH (21:25)
[2016-10-22] VITALS (19 sets, daily range): BP systolic 98–153; BP diastolic 46–88; PULSE 65–119; RESP 13–41
[2016-10-22] MEDS: ALBUTEROL/IPRATROPIUM (NEB) 3 ML AMP HHN SCH ×6 (01:39→21:00)
[2016-10-22] MEDS: ACCU-CHEK XX SCH (02:00)
[2016-10-22] MEDS: PANTOPRAZOLE (EC) 40 MG TAB PO SCH (05:37)
[2016-10-22 05:58] LABS: ABNORMAL IP MESSAGE 1; BASOPHILS % 0.3 % (0.0-2.0); EOSINOPHILS # 0.6 10^3/ul (0.0-0.5); EOSINOPHILS % 4.8 % (0.0-7.0); HEMATOCRIT 26.8 % (42.0-52.0); HEMOGLOBIN 8.4 g/dl (14.0-18.0); LYMPHOCYTES % 16.3 % (15.0-51.0); MEAN CORPUSCULAR HGB CONC 31.3 g/dl (32.0-37.0); MEAN CORPUSCULAR VOLUME 108.5 fl (82.0-101.0); MEAN PLATELET VOLUME 10.4 fl (7.4-10.4); MONOCYTE # 1.6 10^3/ul (0.3-0.9); MONOCYTES % 13.2 % (0.0-11.0); NEUTROPHILS % 64.4 % (39.0-77.0); NUCLEATED RED BLOOD CELLS% 0.3 /100WBC (0.0-0.0); PLATELET COUNT 207 10^3/UL (140-415); POSITIVE DIFF @See below; RED BLOOD COUNT 2.47 10^6/ul (4.70-6.10); RED CELL DISTRIBUTION WIDTH 18.4 % (11.5-14.5)
[2016-10-22 06:13] LABS: CREATININE 3.45 mg/dl (0.61-1.24); POTASSIUM 3.5 mmol/L (3.5-5.1)
[2016-10-22] MEDS: INSULIN ASPART [NOVOLOG] 3 ML PEN SC SCH ×4 (07:35→20:28)
[2016-10-22] MEDS: CLOPIDOGREL 75 MG TAB PO SCH (08:28)
[2016-10-22] MEDS: ASPIRIN 81 MG TAB PO SCH (08:28)
[2016-10-22] MEDS: CEFEPIME 1GM/50 ML (PMX) 50 ML IVPB SCH (09:31)
[2016-10-22] MEDS: METOPROLOL 50 MG TAB PO SCH ×2 (09:31→20:27)
--- NOTE | 2016-10-22 10:08 | CONS ---
Date/Time of Note Date/Time of Note DATE: 10/22/16 TIME: 10:05 Assessment/Plan Assessment/Plan Chief Complaint/Hosp Course NSTEMI: Trop peak of 2.9. S/p cath with PCI of prox Cx and prox to mid RCA . Acute on chronic diastolic heart failure: Possibly secondary to missed HD session Wednesday. Possibly ischemia driven. Now euvolemic Paroxysmal atrial fibrillation: Converted to afib 10/19. Back in sinus after amiodarone. Needs anticoagulation for CHADSVASC of 6 Acute respiratory failure: Due to heart failure as above. On BiPAP initially, now off and stable respiratory status ESRD on HD: recently started. DM HTN HL -add Eliquis 2.5mg BID (limited data for ESRD pts but not a contraindication) -ASA (should stop in one month to avoid triple therapy) -plavix -lipitor -metoprolol 50mg BID -ok for tele transfer Problems: Consultation Date/Type/Reason Admit Date/Time Oct 19, 2016 at 07:51 Initial Consult Date 10/19/16 Type of Consultation: Cardiology Referring Provider: EDDIE ULLOA NP 24 HR Interval Summary Free Text/Dictation Converted to afib this am when working with PT. HR <110 though. No SOB or CP today Exam/Review of Systems Vital Signs Vitals Vital Signs Date Time Temp Pulse Resp B/P Pulse Ox O2 Delivery O2 Flow Rate FiO2 10/22/16 09:50 101 16 100 2.0 10/22/16 09:00 131/50 Nasal Cannula 10/22/16 08:00 98.3 10/22/16 04:45 27 Intake and Output 10/21/16 10/21/16 10/22/16 15:00 23:00 07:00 Intake Total 50 ml 630 ml Output Total 125 ml 4535 ml 70 ml Balance -75 ml -3905 ml -70 ml Exam Constitutional: alert, oriented Psych: no complaints Head: atraumatic, normocephalic Neck: No jvd Respiratory: crackles/rales (mild), diminished breath sounds, No clear to auscultation Cardiovascular: No edema, No regular rate and rhythm Gastrointestinal: non-tender, soft Neurological: nl mental status, nl speech Results Result Diagram: 10/22/16 0500 10/22/16 0500 Results 24 hrs Laboratory Tests Test 10/21/16 12:39 10/21/16 18:25 10/21/16 21:29 10/22/16 01:59 Bedside Glucose 124 158 200 149 Test 10/22/16 05:00 10/22/16 08:04 White Blood Count 12.0 H Red Blood Count 2.47 L Hemoglobin 8.4 L Hematocrit 26.8 L Mean Corpuscular Volume 108.5 H Mean Corpuscular Hemoglobin 34.0 H Mean Corpuscular Hemoglobin Concent 31.3 L Red Cell Distribution Width 18.4 H Platelet Count 207 Mean Platelet Volume 10.4 Neutrophils % 64.4 Lymphocytes % 16.3 Monocytes % 13.2 H Eosinophils % 4.8 Basophils % 0.3 Nucleated Red Blood Cells % 0.3 H Neutrophils # (Manual) 7.7 H Lymphocytes # 2.0 Monocytes # 1.6 H Eosinophils # 0.6 H Basophils # 0.0 Nucleated Red Blood Cells # 0.0 Sodium Level 140 Potassium Level 3.5 Chloride Level 102 Carbon Dioxide Level 26 Anion Gap 16 Blood Urea Nitrogen 19 Creatinine 3.45 H Glucose Level 120 Calcium Level 9.0 Hepatitis B Surface Antigen NEGATIVE Hepatitis C Antibody NEGATIVE Bedside Glucose 138 Medications Medications Current Medications Ondansetron HCl (Zofran Inj) 4 mg Q6H PRN IV NAUSEA AND/OR VOMITING; Start at 10:00 Morphine Sulfate (morphine) 2 mg Q4H PRN IV SEVERE PAIN LEVEL 7-10; Start 10/19 at 10:00 Aspirin (Aspirin) 81 mg DAILY PO Last administered on 10/22/16 08:28; Admin Dose 81 MG; Start 10/19/16 at 10:30 Hydralazine HCl 10 mg 10 mg Q6H PRN IV SBP>160; Start 10/19/16 at 10:00 Cefepime HCl (Maxipime 1gm/50 ml (Pmx)) 50 ml @ 100 mls/hr Q24H IVPB Last administered on 10/22/16 09:31; Admin Dose 100 MLS/HR; Start 10/19/16 at 10:00 Atorvastatin Calcium (Lipitor) 40 mg QHS PO Last administered on 10/21/16 21: 25; Admin Dose 40 MG; Start 10/19/16 at 21:00 Epoetin Guy (Epogen (Esrd)) 10,000 units MoWeFr@17 SC Last administered on 18:33; Admin Dose 10,000 UNITS; Start 10/19/16 at 17:00 Miscellaneous Information 1 ea NOTE XX ; Start 10/20/16 at 06:30 Glucose (Glutose) 15 gm Q15M PRN PO DECREASED GLUCOSE; Start 10/20/16 at 06:30 Glucose (Glutose) 22.5 gm Q15M PRN PO DECREASED GLUCOSE; Start 10/20/16 at 06: 30 Dextrose (D50w Syringe) 25 ml Q15M PRN IV DECREASED GLUCOSE; Start 10/20/16 at 06:30 Dextrose (D50w Syringe) 50 ml Q15M PRN IV DECREASED GLUCOSE; Start 10/20/16 at 06:30 Glucagon (Glucagen) 1 mg Q15M PRN IM DECREASED GLUCOSE; Start 10/20/16 at 06:30 Glucose 15 gm 15 gm Q15M PRN BUCCAL DECREASED GLUCOSE; Start 10/20/16 at 06:30 Ferric Sodium Gluconate Complex/ Sodium Chloride (Ferrlecit/NS) 110 ml @ 110 mls/hr Q24H IVPB Last administered on 10/21/16 14:40; Admin Dose 110 MLS/HR; Start 10/20/16 at 11:00; Stop 10/24/16 at 11:59 Diagnostic Test (Pha) (Accu-Chek) 1 ea 02 XX Last administered on 10/22/16 02: 00; Admin Dose 1 EA; Start 10/21/16 at 02:00 Clopidogrel Bisulfate (plaVIX) 75 mg DAILY PO Last administered on 10/22/16 08 :28; Admin Dose 75 MG; Start 10/21/16 at 09:00 Acetaminophen (Tylenol Tab) 650 mg Q4H PRN PO NON-CARDIAC PAIN LEVEL (1-3); Start 10/20/16 at 13:30 Metoprolol Tartrate (Lopressor) 50 mg BID PO Last administered on 10/22/16 09: 31; Admin Dose 50 MG; Start 10/21/16 at 09:00 Pantoprazole (Protonix Tab) 40 mg DAILY@06 PO Last administered on 10/22/16 05 :37; Admin Dose 40 MG; Start 10/22/16 at 06:00 Apixaban (Eliquis) 2.5 mg BID PO ; Start 10/22/16 at 09:30 NAEEM WRAY Oct 22, 2016 10:07
[2016-10-22] MEDS: SOD FERRIC GLUC COMPLX 125 MG in SOD CHLORIDE 0.9% 100 ML IVPB SCH (10:11)
[2016-10-22] MEDS: APIXABAN 5 MG TABLET PO SCH ×2 (10:25→20:24)
[2016-10-22] MEDS ORDERED: POTASSIUM CHLORIDE (SR) 10 MEQ TAB PO ONE (11:30)
--- NOTE | 2016-10-22 11:33 | CONS ---
Date/Time of Note Date/Time of Note DATE: 10/22/16 TIME: 11:31 Assessment/Plan Assessment/Plan Additional Assessment/Plan 1. ESRD, next HD tomm 2. Acute ND, 2 stents placed, asx, now in Afib, eliquis started 3. Will dc chapman and check post void residual 4. Anemia is stable. 5. CHF resolving 6. ?? dc antibiotics Consultation Date/Type/Reason Admit Date/Time Oct 19, 2016 at 07:51 Initial Consult Date 10/19/16 Type of Consultation: Cardiology Referring Provider: EDDIE ULLOA NP Detailed Summary ENT: other (senses reduced hearing right ear) Respiratory: cough (not productive), No shortness of breath Cardiovascular: No chest pain Gastrointestinal: no complaints Genitourinary: other (chapman in place) Exam/Review of Systems Vital Signs Vitals Vital Signs Date Time Temp Pulse Resp B/P Pulse Ox O2 Delivery O2 Flow Rate FiO2 10/22/16 11:00 119 21 106/84 99 Nasal Cannula 2.0 10/22/16 08:00 98.3 10/22/16 04:45 27 Intake and Output 10/21/16 10/21/16 10/22/16 15:00 23:00 07:00 Intake Total 50 ml 630 ml Output Total 125 ml 4535 ml 70 ml Balance -75 ml -3905 ml -70 ml Exam Neck: No jvd Respiratory: diminished breath sounds (and only few rales at bases) Cardiovascular: No S3, No irregular rhythm Gastrointestinal: soft Extremities: No edema (and no calf tend) Results Result Diagram: 10/22/16 0500 10/22/16 0500 Results 24 hrs Laboratory Tests Test 10/21/16 12:39 10/21/16 18:25 10/21/16 21:29 10/22/16 01:59 Bedside Glucose 124 158 200 149 Test 10/22/16 05:00 10/22/16 08:04 White Blood Count 12.0 H Red Blood Count 2.47 L Hemoglobin 8.4 L Hematocrit 26.8 L Mean Corpuscular Volume 108.5 H Mean Corpuscular Hemoglobin 34.0 H Mean Corpuscular Hemoglobin Concent 31.3 L Red Cell Distribution Width 18.4 H Platelet Count 207 Mean Platelet Volume 10.4 Neutrophils % 64.4 Lymphocytes % 16.3 Monocytes % 13.2 H Eosinophils % 4.8 Basophils % 0.3 Nucleated Red Blood Cells % 0.3 H Neutrophils # (Manual) 7.7 H Lymphocytes # 2.0 Monocytes # 1.6 H Eosinophils # 0.6 H Basophils # 0.0 Nucleated Red Blood Cells # 0.0 Sodium Level 140 Potassium Level 3.5 Chloride Level 102 Carbon Dioxide Level 26 Anion Gap 16 Blood Urea Nitrogen 19 Creatinine 3.45 H Glucose Level 120 Calcium Level 9.0 Hepatitis B Surface Antigen NEGATIVE Hepatitis C Antibody NEGATIVE Bedside Glucose 138 Medications Medications Current Medications Ondansetron HCl (Zofran Inj) 4 mg Q6H PRN IV NAUSEA AND/OR VOMITING; Start at 10:00 Morphine Sulfate (morphine) 2 mg Q4H PRN IV SEVERE PAIN LEVEL 7-10; Start 10/19 at 10:00 Aspirin (Aspirin) 81 mg DAILY PO Last administered on 10/22/16 08:28; Admin Dose 81 MG; Start 10/19/16 at 10:30 Hydralazine HCl 10 mg 10 mg Q6H PRN IV SBP>160; Start 10/19/16 at 10:00 Cefepime HCl (Maxipime 1gm/50 ml (Pmx)) 50 ml @ 100 mls/hr Q24H IVPB Last administered on 10/22/16 09:31; Admin Dose 100 MLS/HR; Start 10/19/16 at 10:00 Atorvastatin Calcium (Lipitor) 40 mg QHS PO Last administered on 10/21/16 21: 25; Admin Dose 40 MG; Start 10/19/16 at 21:00 Epoetin Guy (Epogen (Esrd)) 10,000 units MoWeFr@17 SC Last administered on 18:33; Admin Dose 10,000 UNITS; Start 10/19/16 at 17:00 Miscellaneous Information 1 ea NOTE XX ; Start 10/20/16 at 06:30 Glucose (Glutose) 15 gm Q15M PRN PO DECREASED GLUCOSE; Start 10/20/16 at 06:30 Glucose (Glutose) 22.5 gm Q15M PRN PO DECREASED GLUCOSE; Start 10/20/16 at 06: 30 Dextrose (D50w Syringe) 25 ml Q15M PRN IV DECREASED GLUCOSE; Start 10/20/16 at 06:30 Dextrose (D50w Syringe) 50 ml Q15M PRN IV DECREASED GLUCOSE; Start 10/20/16 at 06:30 Glucagon (Glucagen) 1 mg Q15M PRN IM DECREASED GLUCOSE; Start 10/20/16 at 06:30 Glucose 15 gm 15 gm Q15M PRN BUCCAL DECREASED GLUCOSE; Start 10/20/16 at 06:30 Ferric Sodium Gluconate Complex/ Sodium Chloride (Ferrlecit/NS) 110 ml @ 110 mls/hr Q24H IVPB Last administered on 10/22/16 10:11; Admin Dose 110 MLS/HR; Start 10/20/16 at 11:00; Stop 10/24/16 at 11:59 Diagnostic Test (Pha) (Accu-Chek) 1 ea 02 XX Last administered on 10/22/16 02: 00; Admin Dose 1 EA; Start 10/21/16 at 02:00 Clopidogrel Bisulfate (plaVIX) 75 mg DAILY PO Last administered on 10/22/16 08 :28; Admin Dose 75 MG; Start 10/21/16 at 09:00 Acetaminophen (Tylenol Tab) 650 mg Q4H PRN PO NON-CARDIAC PAIN LEVEL (1-3); Start 10/20/16 at 13:30 Metoprolol Tartrate (Lopressor) 50 mg BID PO Last administered on 10/22/16 09: 31; Admin Dose 50 MG; Start 10/21/16 at 09:00 Pantoprazole (Protonix Tab) 40 mg DAILY@06 PO Last administered on 10/22/16 05 :37; Admin Dose 40 MG; Start 10/22/16 at 06:00 Apixaban (Eliquis) 2.5 mg BID PO Last administered on 10/22/16 10:25; Admin Dose 2.5 MG; Start 10/22/16 at 09:30 RIVERA GALVEZ MD Oct 22, 2016 11:33
[2016-10-22 15:20] LABS: ADD UMIC YES; UR ASCORBIC ACID NEGATIVE (NEGATIVE); UR BACTERIA FEW /HPF (NONE SEEN); UR BILIRUBIN (Dip) NEGATIVE (NEGATIVE); UR BLOOD (Dip) 3+ mg/dL (NEGATIVE); UR CLARITY CLOUDY (CLEAR); UR COLOR AMBER (YELLOW); UR GLUCOSE (Dip) 3+ mg/dL (NEGATIVE); UR KETONES (Dip) TRACE mg/dL (NEGATIVE); UR LEUKOCYTE ESTERASE (Dip) NEGATIVE Leu/ul (NEGATIVE); UR MUCUS FEW /HPF (NONE SEEN); UR NITRITE (Dip) NEGATIVE (NEGATIVE); UR RBC 79 /HPF (0-5); UR SPECIFIC GRAVITY (Dip) 1.026 (1.003-1.030); UR SQUAMOUS EPITHELIAL CELL FEW /HPF (FEW); UR TOTAL PROTEIN (Dip) 3+ mg/dl (NEGATIVE); UR UROBILINOGEN (Dip) NEGATIVE (NEGATIVE)
--- NOTE | 2016-10-22 15:40 | PN ---
DATE: 10/22/2016 SUBJECTIVE: The patient overall feels well. Denies any chest pain or shortness of breath. OBJECTIVE DATA: VITAL SIGNS: Temperature 98.3, blood pressure 122/70, pulse ox 100 percent on 2 L nasal cannula. NECK: JVD is not increased. CHEST: A few crackles over the bases. HEART: S1, S2. No definite gallops. EXTREMITIES: No edema. Homans is negative. NEUROLOGIC: No localizing lateralizing signs. LABORATORY: WBC 12.0, hematocrit 26.8, sodium 140, potassium 3.5. BUN 19, creatinine 3.45, glucose 138 and 170 today. IMPRESSION: 1. Status post non-ST elevation myocardial infarction. Status post percutaneous coronary intervention of circumflex and right coronary artery. 2. Acute on chronic diastolic heart failure. 3. Paroxysmal atrial fibrillation. 4. Acute respiratory failure. 5. End-stage renal disease on hemodialysis. 6. Diabetes mellitus type 2. 7. Diabetic dyslipidemia. 8. Status post pneumonia. PLAN: We will continue IV antibiotics for now. Repeat portable chest x-ray in a.m. Continue cardiac recommendations per Dr. Wynne and nephrology recommendations per Dr. Doni Zepeda MD Dictated By: Saeid Galeas MD /raad/sujit /Document#: [id number] MUNA
[2016-10-22 20:16] LABS: ADD UMIC YES; UR ASCORBIC ACID NEGATIVE (NEGATIVE); UR BACTERIA MODERATE /HPF (NONE SEEN); UR BILIRUBIN (Dip) NEGATIVE (NEGATIVE); UR BLOOD (Dip) 3+ mg/dL (NEGATIVE); UR CLARITY CLOUDY (CLEAR); UR COLOR AMBER (YELLOW); UR GLUCOSE (Dip) 3+ mg/dL (NEGATIVE); UR KETONES (Dip) NEGATIVE (NEGATIVE); UR LEUKOCYTE ESTERASE (Dip) 1+ Leu/ul (NEGATIVE); UR MUCUS FEW /HPF (NONE SEEN); UR NITRITE (Dip) NEGATIVE (NEGATIVE); UR RBC 86 /HPF (0-5); UR SPECIFIC GRAVITY (Dip) 1.027 (1.003-1.030); UR SQUAMOUS EPITHELIAL CELL FEW /HPF (FEW); UR TOTAL PROTEIN (Dip) 3+ mg/dl (NEGATIVE); UR UROBILINOGEN (Dip) NEGATIVE (NEGATIVE)
[2016-10-22] MEDS: ATORVASTATIN 40 MG TAB PO SCH (20:27)
[2016-10-23] VITALS (16 sets, daily range): BP systolic 119–148; BP diastolic 55–66; PULSE 63–92; RESP 16–19
[2016-10-23] MEDS: ALBUTEROL/IPRATROPIUM (NEB) 3 ML AMP HHN SCH ×5 (01:25→16:33)
[2016-10-23] MEDS: ACCU-CHEK XX SCH (02:00)
[2016-10-23] MEDS: PANTOPRAZOLE (EC) 40 MG TAB PO SCH (06:34)
[2016-10-23 07:34] LABS: BASOPHILS % 0.4 % (0.0-2.0); EOSINOPHILS # 0.6 10^3/ul (0.0-0.5); EOSINOPHILS % 6.3 % (0.0-7.0); HEMATOCRIT 26.9 % (42.0-52.0); HEMOGLOBIN 8.3 g/dl (14.0-18.0); LYMPHOCYTES # 1.4 10^3/ul (0.8-2.9); LYMPHOCYTES % 14.4 % (15.0-51.0); MEAN CORPUSCULAR HEMOGLOBIN 34.2 pg (29.0-33.0); MEAN CORPUSCULAR HGB CONC 30.9 g/dl (32.0-37.0); MEAN CORPUSCULAR VOLUME 110.7 fl (82.0-101.0); MEAN PLATELET VOLUME 10.1 fl (7.4-10.4); MONOCYTE # 1.2 10^3/ul (0.3-0.9); MONOCYTES % 11.6 % (0.0-11.0); NEUTROPHILS % 66.6 % (39.0-77.0); NUCLEATED RED BLOOD CELLS% 0.2 /100WBC (0.0-0.0); PLATELET COUNT 214 10^3/UL (140-415); RED BLOOD COUNT 2.43 10^6/ul (4.70-6.10); RED CELL DISTRIBUTION WIDTH 18.1 % (11.5-14.5); WHITE BLOOD COUNT 9.9 10^3/ul (4.8-10.8)
[2016-10-23] MEDS: INSULIN ASPART [NOVOLOG] 3 ML PEN SC SCH ×3 (07:55→17:09)
[2016-10-23 08:02] LABS: CALCIUM 8.2 mg/dl (8.4-10.2); CREATININE 5.4 mg/dl (0.61-1.24); PHOSPHORUS 3.2 mg/dl (2.5-4.9); POTASSIUM 3.5 mmol/L (3.5-5.1)
[2016-10-23] MEDS: METOPROLOL 50 MG TAB PO SCH (08:19)
--- NOTE | 2016-10-23 08:31 | RADRPT ---
PROCEDURE: XR Chest. CLINICAL INDICATION: Shortness of breath. TECHNIQUE: Single frontal view. COMPARISON: 10/21/2016. FINDINGS: There is a right internal jugular vein dual-lumen tunnel dialysis catheter, unchanged. Emphysematou s changes bilaterally in the upper lung zones are unchanged. There is improved aeration of the lung bases. The heart size is normal. There is calcification in the aorta consistent with atherosclerosis. There are small bilateral pleural effusions, smaller than seen previously. There is no pneumothorax. IMPRESSION: 1. Improved appearance of the lungs and smaller bilateral pleural effusions. 2. No other change from 10/21/2016. RPTAT: QQ .Barry Marroquin MD, MD Date Time Electronically viewed and signed by .Barry Marroquin MD, MD on 10/23/2016 08:30 .R/
[2016-10-23] MEDS: ASPIRIN 81 MG TAB PO SCH (08:44)
[2016-10-23] MEDS: CLOPIDOGREL 75 MG TAB PO SCH (08:44)
[2016-10-23] MEDS: APIXABAN 5 MG TABLET PO SCH (08:45)
--- NOTE | 2016-10-23 09:13 | CONS ---
Date/Time of Note Date/Time of Note DATE: 10/23/16 TIME: 09:09 Assessment/Plan Assessment/Plan Chief Complaint/Hosp Course NSTEMI: Trop peak of 2.9. S/p cath with PCI of prox Cx and prox to mid RCA . Acute on chronic diastolic heart failure: Possibly secondary to missed HD session Wednesday. Possibly ischemia driven. Now euvolemic Paroxysmal atrial fibrillation: Converted to afib 10/19. Back in sinus after amiodarone. Needs anticoagulation for CHADSVASC of 6 Acute respiratory failure: Due to heart failure as above. On BiPAP initially, now off and stable respiratory status ESRD on HD: recently started. DM HTN HL -continue Eliquis 2.5mg BID (limited data for ESRD pts but not a contraindication) -ASA (should stop in one month to avoid triple therapy) -plavix -lipitor -metoprolol 50mg BID -ok for d/c from my perspective Problems: Consultation Date/Type/Reason Admit Date/Time Oct 19, 2016 at 07:51 Initial Consult Date 10/19/16 Type of Consultation: Cardiology Referring Provider: EDDIE ULLOA NP 24 HR Interval Summary Free Text/Dictation No o/n events. No chest pain. No SOB. Exam/Review of Systems Vital Signs Vitals Vital Signs Date Time Temp Pulse Resp B/P Pulse Ox O2 Delivery O2 Flow Rate FiO2 10/23/16 08:15 69 10/23/16 08:11 98.9 16 148/66 96 10/23/16 04:17 Nasal Cannula 1.0 10/22/16 04:45 27 Intake and Output 10/22/16 10/22/16 10/23/16 15:00 23:00 07:00 Intake Total 740 ml 300 ml 120 ml Output Total 60 ml Balance 680 ml 300 ml 120 ml Exam Constitutional: alert, oriented Psych: no complaints Head: atraumatic, normocephalic Neck: No jvd Respiratory: clear to auscultation, diminished breath sounds, No crackles/rales Cardiovascular: regular rate and rhythm, No edema, No systolic murmur Gastrointestinal: non-tender, soft Neurological: nl mental status, nl speech Results Result Diagram: 10/23/16 0702 10/23/16 0702 Results 24 hrs Laboratory Tests Test 10/22/16 11:30 10/22/16 12:27 10/22/16 17:15 10/22/16 17:24 Urine Color KATHRINE KATHRINE Urine Clarity CLOUDY A CLOUDY A Urine pH 5.0 5.0 Urine Specific [place] 1.026 1.027 Urine Ketones TRACE A NEGATIVE Urine Nitrite NEGATIVE NEGATIVE Urine Bilirubin NEGATIVE NEGATIVE Urine Urobilinogen NEGATIVE NEGATIVE Urine Leukocyte Esterase NEGATIVE 1+ H Urine Microscopic RBC 79 H 86 H Urine Microscopic WBC 40 H 181 H Urine Squamous Epithelial Cells FEW FEW Urine Bacteria FEW A MODERATE Urine Mucus FEW A FEW A Urine Hemoglobin 3+ H 3+ H Urine Glucose 3+ H 3+ H Urine Total Protein 3+ H 3+ H Bedside Glucose 170 166 Urine Granular Casts MANY A Test 10/22/16 20:22 10/23/16 07:02 10/23/16 08:08 Bedside Glucose 112 131 White Blood Count 9.9 Red Blood Count 2.43 L Hemoglobin 8.3 L Hematocrit 26.9 L Mean Corpuscular Volume 110.7 H Mean Corpuscular Hemoglobin 34.2 H Mean Corpuscular Hemoglobin Concent 30.9 L Red Cell Distribution Width 18.1 H Platelet Count 214 Mean Platelet Volume 10.1 Neutrophils % 66.6 Lymphocytes % 14.4 L Monocytes % 11.6 H Eosinophils % 6.3 Basophils % 0.4 Nucleated Red Blood Cells % 0.2 H Neutrophils # (Manual) 6.6 Lymphocytes # 1.4 Monocytes # 1.2 H Eosinophils # 0.6 H Basophils # 0.0 Nucleated Red Blood Cells # 0.0 Sodium Level 136 Potassium Level 3.5 Chloride Level 104 Carbon Dioxide Level 24 Anion Gap 12 Blood Urea Nitrogen 29 H Creatinine 5.40 H Glucose Level 113 Calcium Level 8.2 L Phosphorus Level 3.2 Medications Medications Current Medications Ondansetron HCl (Zofran Inj) 4 mg Q6H PRN IV NAUSEA AND/OR VOMITING; Start at 10:00 Morphine Sulfate (morphine) 2 mg Q4H PRN IV SEVERE PAIN LEVEL 7-10; Start 10/19 at 10:00 Aspirin (Aspirin) 81 mg DAILY PO Last administered on 10/23/16t 08:44; Admin Dose 81 MG; Start 10/19/16 at 10:30 Hydralazine HCl 10 mg 10 mg Q6H PRN IV SBP>160; Start 10/19/16 at 10:00 Cefepime HCl (Maxipime 1gm/50 ml (Pmx)) 50 ml @ 100 mls/hr Q24H IVPB Last administered on 10/22/16 09:31; Admin Dose 100 MLS/HR; Start 10/19/16 at 10:00 Atorvastatin Calcium (Lipitor) 40 mg QHS PO Last administered on 10/22/16 20: 27; Admin Dose 40 MG; Start 10/19/16 at 21:00 Epoetin Guy (Epogen (Esrd)) 10,000 units MoWeFr@17 SC Last administered on 18:33; Admin Dose 10,000 UNITS; Start 10/19/16 at 17:00 Miscellaneous Information 1 ea NOTE XX ; Start 10/20/16 at 06:30 Glucose (Glutose) 15 gm Q15M PRN PO DECREASED GLUCOSE; Start 10/20/16 at 06:30 Glucose (Glutose) 22.5 gm Q15M PRN PO DECREASED GLUCOSE; Start 10/20/16 at 06: 30 Dextrose (D50w Syringe) 25 ml Q15M PRN IV DECREASED GLUCOSE; Start 10/20/16 at 06:30 Dextrose (D50w Syringe) 50 ml Q15M PRN IV DECREASED GLUCOSE; Start 10/20/16 at 06:30 Glucagon (Glucagen) 1 mg Q15M PRN IM DECREASED GLUCOSE; Start 10/20/16 at 06:30 Glucose 15 gm 15 gm Q15M PRN BUCCAL DECREASED GLUCOSE; Start 10/20/16 at 06:30 Ferric Sodium Gluconate Complex/ Sodium Chloride (Ferrlecit/NS) 110 ml @ 110 mls/hr Q24H IVPB Last administered on 10/22/16 10:11; Admin Dose 110 MLS/HR; Start 10/20/16 at 11:00; Stop 10/24/16 at 11:59 Diagnostic Test (Pha) (Accu-Chek) 1 ea 02 XX Last administered on 10/22/16 02: 00; Admin Dose 1 EA; Start 10/21/16 at 02:00 Clopidogrel Bisulfate (plaVIX) 75 mg DAILY PO Last administered on 10/23/16 08: 44; Admin Dose 75 MG; Start 10/21/16 at 09:00 Acetaminophen (Tylenol Tab) 650 mg Q4H PRN PO NON-CARDIAC PAIN LEVEL (1-3); Start 10/20/16 at 13:30 Metoprolol Tartrate (Lopressor) 50 mg BID PO Last administered on 10/22/16 20: 27; Admin Dose 50 MG; Start 10/21/16 at 09:00 Pantoprazole (Protonix Tab) 40 mg DAILY@06 PO Last administered on 10/23/16 06: 34; Admin Dose 40 MG; Start 10/22/16 at 06:00 Apixaban (Eliquis) 2.5 mg BID PO Last administered on 10/23/16 08:45; Admin Dose 2.5 MG; Start 10/22/16 at 09:30 NAEEM WRAY Oct 23, 2016 09:13
[2016-10-23] MEDS ORDERED: POTASSIUM CHLORIDE (SR) 20 MEQ TAB PO STA (09:27)
--- NOTE | 2016-10-23 10:56 | CONS ---
Date/Time of Note Date/Time of Note DATE: 10/23/16 TIME: 10:53 Assessment/Plan Assessment/Plan Additional Assessment/Plan 1. CKD sec to DM, now being dialyzed, next HD Wednesday 2. ASHD, acute mi, CHF--->resolved. 3. Paroxysmal A fib, on anticoagulation 4. Anemia, stable 5. Inc MCV-B12 and folate are nl, ordered SIEP 6. Await case management re--transfer to acute rehab 7. Will permanent access later Consultation Date/Type/Reason Admit Date/Time Oct 19, 2016 at 07:51 Initial Consult Date 10/19/16 Type of Consultation: Cardiology Referring Provider: EDDIE ULLOA NP Detailed Summary Respiratory: No shortness of breath Cardiovascular: No chest pain, No lightheadedness, No orthopenea Gastrointestinal: no complaints Genitourinary: no complaints Exam/Review of Systems Vital Signs Vitals Vital Signs Date Time Temp Pulse Resp B/P Pulse Ox O2 Delivery O2 Flow Rate FiO2 10/23/16 09:16 1.0 10/23/16 09:15 79 18 98 Nasal Cannula 10/23/16 08:11 98.9 148/66 10/22/16 04:45 27 Intake and Output 10/22/16 10/22/16 10/23/16 14:59 22:59 06:59 Intake Total 740 ml 300 ml 120 ml Output Total 80 ml Balance 660 ml 300 ml 120 ml Exam Neck: No jvd Respiratory: clear to auscultation Cardiovascular: regular rate and rhythm, No S3, No S4, No systolic murmur Gastrointestinal: soft Extremities: No edema (and no calf tend) Results Result Diagram: 10/23/16 0702 10/23/16 0702 Results 24 hrs Laboratory Tests Test 10/22/16 11:30 10/22/16 12:27 10/22/16 17:15 10/22/16 17:24 Urine Color KATHRINE KATHRINE Urine Clarity CLOUDY A CLOUDY A Urine pH 5.0 5.0 Urine Specific [place] 1.026 1.027 Urine Ketones TRACE A NEGATIVE Urine Nitrite NEGATIVE NEGATIVE Urine Bilirubin NEGATIVE NEGATIVE Urine Urobilinogen NEGATIVE NEGATIVE Urine Leukocyte Esterase NEGATIVE 1+ H Urine Microscopic RBC 79 H 86 H Urine Microscopic WBC 40 H 181 H Urine Squamous Epithelial Cells FEW FEW Urine Bacteria FEW A MODERATE Urine Mucus FEW A FEW A Urine Hemoglobin 3+ H 3+ H Urine Glucose 3+ H 3+ H Urine Total Protein 3+ H 3+ H Bedside Glucose 170 166 Urine Granular Casts MANY A Test 10/22/16 20:22 10/23/16 07:02 10/23/16 08:08 Bedside Glucose 112 131 White Blood Count 9.9 Red Blood Count 2.43 L Hemoglobin 8.3 L Hematocrit 26.9 L Mean Corpuscular Volume 110.7 H Mean Corpuscular Hemoglobin 34.2 H Mean Corpuscular Hemoglobin Concent 30.9 L Red Cell Distribution Width 18.1 H Platelet Count 214 Mean Platelet Volume 10.1 Neutrophils % 66.6 Lymphocytes % 14.4 L Monocytes % 11.6 H Eosinophils % 6.3 Basophils % 0.4 Nucleated Red Blood Cells % 0.2 H Neutrophils # (Manual) 6.6 Lymphocytes # 1.4 Monocytes # 1.2 H Eosinophils # 0.6 H Basophils # 0.0 Nucleated Red Blood Cells # 0.0 Sodium Level 136 Potassium Level 3.5 Chloride Level 104 Carbon Dioxide Level 24 Anion Gap 12 Blood Urea Nitrogen 29 H Creatinine 5.40 H Glucose Level 113 Calcium Level 8.2 L Phosphorus Level 3.2 Medications Medications Current Medications Ondansetron HCl (Zofran Inj) 4 mg Q6H PRN IV NAUSEA AND/OR VOMITING; Start at 10:00 Morphine Sulfate (morphine) 2 mg Q4H PRN IV SEVERE PAIN LEVEL 7-10; Start 10/19 at 10:00 Aspirin (Aspirin) 81 mg DAILY PO Last administered on 10/23/16 08:44; Admin Dose 81 MG; Start 10/19/16 at 10:30 Hydralazine HCl 10 mg 10 mg Q6H PRN IV SBP>160; Start 10/19/16 at 10:00 Cefepime HCl (Maxipime 1gm/50 ml (Pmx)) 50 ml @ 100 mls/hr Q24H IVPB Last administered on 10/22/16 09:31; Admin Dose 100 MLS/HR; Start 10/19/16 at 10:00 Atorvastatin Calcium (Lipitor) 40 mg QHS PO Last administered on 10/22/16 20: 27; Admin Dose 40 MG; Start 10/19/16 at 21:00 Epoetin Guy (Epogen (Esrd)) 10,000 units MoWeFr@17 SC Last administered on 18:33; Admin Dose 10,000 UNITS; Start 10/19/16 at 17:00 Miscellaneous Information 1 ea NOTE XX ; Start 10/20/16 at 06:30 Glucose (Glutose) 15 gm Q15M PRN PO DECREASED GLUCOSE; Start 10/20/16 at 06:30 Glucose (Glutose) 22.5 gm Q15M PRN PO DECREASED GLUCOSE; Start 10/20/16 at 06: 30 Dextrose (D50w Syringe) 25 ml Q15M PRN IV DECREASED GLUCOSE; Start 10/20/16 at 06:30 Dextrose (D50w Syringe) 50 ml Q15M PRN IV DECREASED GLUCOSE; Start 10/20/16 at 06:30 Glucagon (Glucagen) 1 mg Q15M PRN IM DECREASED GLUCOSE; Start 10/20/16 at 06:30 Glucose 15 gm 15 gm Q15M PRN BUCCAL DECREASED GLUCOSE; Start 10/20/16 at 06:30 Ferric Sodium Gluconate Complex/ Sodium Chloride (Ferrlecit/NS) 110 ml @ 110 mls/hr Q24H IVPB Last administered on 10/22/16 10:11; Admin Dose 110 MLS/HR; Start 10/20/16 at 11:00; Stop 10/24/16 at 11:59 Diagnostic Test (Pha) (Accu-Chek) 1 ea 02 XX Last administered on 10/22/16 02: 00; Admin Dose 1 EA; Start 10/21/16 at 02:00 Clopidogrel Bisulfate (plaVIX) 75 mg DAILY PO Last administered on 10/23/16 08: 44; Admin Dose 75 MG; Start 10/21/16 at 09:00 Acetaminophen (Tylenol Tab) 650 mg Q4H PRN PO NON-CARDIAC PAIN LEVEL (1-3); Start 10/20/16 at 13:30 Metoprolol Tartrate (Lopressor) 50 mg BID PO Last administered on 10/22/16 20: 27; Admin Dose 50 MG; Start 10/21/16 at 09:00 Pantoprazole (Protonix Tab) 40 mg DAILY@06 PO Last administered on 10/23/16 06: 34; Admin Dose 40 MG; Start 10/22/16 at 06:00 Apixaban (Eliquis) 2.5 mg BID PO Last administered on 10/23/16 08:45; Admin Dose 2.5 MG; Start 10/22/16 at 09:30 RIVERA GALVEZ MD Oct 23, 2016 10:56
--- NOTE | 2016-10-23 11:48 | PN ---
DATE: 10/23/2016 SUBJECTIVE DATA: The patient overall feels better. Denies any chest pain, shortness of breath. OBJECTIVE DATA: PHYSICAL EXAM: GENERAL: Patient is awake, alert. VITAL SIGNS: Afebrile, blood pressure 142/66. O2 saturation is 96 percent on room air. NECK: JVD is not increased. CHEST: Clinically clear. HEART: S1, S2. No definite gallops. EXTREMITIES: No edema. Homans sign is negative. LABORATORY: WBC count 9.9, hematocrit 26.9. Sodium 136, potassium 3.5. IMPRESSION: 1. Status post nonST elevated myocardial infarction, complicated with acute on chronic diastolic failure. 2. Status post-PTCA of the circumflex and right coronary artery. 3. Paroxysmal atrial fibrillation. 4. Acute respiratory failure, resolving. 5. End-stage renal disease on hemodialysis. 6. Diabetes mellitus type 2, well-controlled. 7. Dyslipidemia. 8. Status post-pneumonia. PLAN: Would DC IV antibiotics and request rehab evaluation. This case discussed with and Dr. Zepeda. Dictated By: Saeid Galeas MD /raad/khalif /Document#: [id number]
[2016-10-23] MEDS: CEFEPIME 1GM/50 ML (PMX) 50 ML IVPB SCH (12:34)
[2016-10-23] MEDS: SOD FERRIC GLUC COMPLX 125 MG in SOD CHLORIDE 0.9% 100 ML IVPB SCH (12:42)
[2016-10-23] MEDS: EPOETIN 10000 UNITS/1 ML INJ (ESRD) SC SCH (17:02)
== END 2016-10-23 19:05 | DRG 246 ==
LOC: E/R 05:32 → MS4 07:51 → ICU 10-20 12:28 → TEL 10-22 12:19
PROVIDERS: ADMIT Internal Medicine; ATTEND Internal Medicine
PROC: 5A09357 Assistance with Respiratory Ventilation, Less than 24 Consecutive Hours, Continuous Positive Airway Pressure (ICD-10-PCS; 2016-10-19)
PROC: 4A023N7 Measurement of Cardiac Sampling and Pressure, Left Heart, Percutaneous Approach (ICD-10-PCS; 2016-10-20)
PROC: B211YZZ Fluoroscopy of Multiple Coronary Arteries using Other Contrast (ICD-10-PCS; 2016-10-20)
PROC: 027135Z Dilation of Coronary Artery, Two Arteries with Two Drug-eluting Intraluminal Devices, Percutaneous Approach (ICD-10-PCS; principal; 2016-10-20 11:45)
PROC: 5A1D60Z (ICD-10-PCS; 2016-10-20 11:45)
DX: I21.4 Non-ST elevation (NSTEMI) myocardial infarction (principal); J96.01 Acute respiratory failure with hypoxia; J81.0 Acute pulmonary edema; I50.33 Acute on chronic diastolic (congestive) heart failure; I16.1 Hypertensive emergency; I13.2 Hypertensive heart and chronic kidney disease with heart failure and with stage 5 chronic kidney disease, or end stage renal disease; I48.0 Paroxysmal atrial fibrillation; N18.6 End stage renal disease; E83.9 Disorder of mineral metabolism, unspecified; E11.22 Type 2 diabetes mellitus with diabetic chronic kidney disease; E78.5 Hyperlipidemia, unspecified; D50.9 Iron deficiency anemia, unspecified; R53.81 Other malaise; Z99.2 Dependence on renal dialysis; Z87.01 Personal history of pneumonia (recurrent)
CPT/HCPCS: 36415; 36600; 71010; 80048; 80053; 80061; 80202; 81001; 82550; 82553; 82607; 82652; 82728; 82746; 82803; 82962; 83036; 83540; 83605; 83735; 83880; 84100; 84443; 84484; 85025; 85610; 85730; 86803; 87040; 87081; 87086; 87340; 90935; 93005; 93306; 93458; 93970; 94640; 94660; 96365; 96366; 96372; 96375; 97110; 97162; C1725; C1769; C1874; C1887; C9113; C9600; C9601; J0282; J0583; J0692; J1644; J1815; J1940; J2916; J3370; J7060; Q4081; Q9967

== ENCOUNTER 2016-10-23 16:40 | Inpatient (IN) | payer MEDICARE, OTHER ==
[~2016-10-23] VITALS: Ht 175.3 cm; Wt 57.3 kg
[~2016-10-23 16:40] MED LIST: ACET325T33 PO; ASPI-664 PO; BISA-57 PO; DOXA4TAB3 PO; FINA5TAB4 PO; HYDR-3670 PO; LANT3I SC; LINA5TAB PO; METO-448 PO; MOME13HF2 INHALATION; NEPH PO; OMEG-135 PO; ONDA-43 PO; PANT40SU PO; POLY17PO6 PO; SEVE800T7 PO; VIT1CAPS15 PO; ZOLP5TAB PO; [UNRECOGNIZED DRUG - CODE] PO
[2016-10-23] MEDS ORDERED: GLUCOSE GEL 15 GRAM TUBE PO PRN ×2 (19:54)
[2016-10-23] MEDS ORDERED: GLUCAGON 1 MG INJ IM PRN (19:54)
[2016-10-23] MEDS ORDERED: DEXTROSE 50% 50 ML SYRINGE IV PRN ×2 (19:54)
[2016-10-23] MEDS ORDERED: ONDANSETRON 4 MG INJ IV PRN (19:54)
[2016-10-23] MEDS ORDERED: ALBUTEROL/IPRATROPIUM (NEB) 3 ML AMP HHN PRN (19:54)
[2016-10-23] MEDS ORDERED: SOD FERRIC GLUC COMPLX 125 MG in SOD CHLORIDE 0.9% 100 ML IVPB SCH (19:54)
[2016-10-23] MEDS ORDERED: GLUCOSE GEL 15 GRAM TUBE BUCCAL PRN (19:54)
[2016-10-23] MEDS ORDERED: hydrALAzine 20 MG INJ IV PRN (19:54)
[2016-10-23] MEDS ORDERED: NACL 0.9% 3 ML SYG IV SCH (19:54)
[2016-10-23] MEDS ORDERED: morphine 2 MG INJ IV PRN (19:54)
[2016-10-23] MEDS ORDERED: ACETAMINOPHEN 325 MG TAB PO PRN (19:54)
[2016-10-23 20:11] VITALS: Ht 175.3 cm; Wt 57.3 kg
[2016-10-23] MEDS: INSULIN ASPART [NOVOLOG] 3 ML PEN SC SCH (21:00)
[2016-10-23 21:23] VITALS: BP 153/63; RESP 18
[2016-10-23] MEDS: ATORVASTATIN 40 MG TAB PO SCH (21:23)
[2016-10-23] MEDS: APIXABAN 5 MG TABLET PO SCH (21:23)
[2016-10-23] MEDS: DOCUSATE SODIUM 100 MG CAP PO SCH (21:24)
[2016-10-23] MEDS: SENNA TAB PO SCH (21:24)
[2016-10-23] MEDS: METOPROLOL 50 MG TAB PO SCH (21:24)
[2016-10-23] MEDS ORDERED: LACTULOSE 30ML CUP PO PRN (21:30)
[2016-10-23] MEDS ORDERED: BISACODYL 10 MG SUPP PR PRN (21:30)
[2016-10-23] MEDS ORDERED: MAGNESIUM HYDROXIDE 30ML CUP PO PRN (21:30)
[2016-10-23] MEDS: ALBUTEROL/IPRATROPIUM (NEB) 3 ML AMP HHN SCH (21:50)
[2016-10-24] MEDS: ALBUTEROL/IPRATROPIUM (NEB) 3 ML AMP HHN SCH ×6 (01:35→20:50)
[2016-10-24] MEDS: ACCU-CHEK XX SCH (02:00)
[2016-10-24 02:19] VITALS: BP 143/65; RESP 18
[2016-10-24] MEDS: PANTOPRAZOLE (EC) 40 MG TAB PO SCH (06:45)
[2016-10-24 07:01] LABS: BASOPHIL # 0.1 10^3/ul (0.0-0.1); BASOPHILS % 0.6 % (0.0-2.0); EOSINOPHILS # 0.5 10^3/ul (0.0-0.5); EOSINOPHILS % 5.2 % (0.0-7.0); HEMATOCRIT 29.4 % (42.0-52.0); HEMOGLOBIN 9.3 g/dl (14.0-18.0); LYMPHOCYTES # 1.6 10^3/ul (0.8-2.9); LYMPHOCYTES % 16.5 % (15.0-51.0); MEAN CORPUSCULAR HEMOGLOBIN 35.5 pg (29.0-33.0); MEAN CORPUSCULAR HGB CONC 31.6 g/dl (32.0-37.0); MEAN CORPUSCULAR VOLUME 112.2 fl (82.0-101.0); MONOCYTE # 1.3 10^3/ul (0.3-0.9); MONOCYTES % 13.1 % (0.0-11.0); NEUTROPHILS % 63.6 % (39.0-77.0); PLATELET COUNT 257 10^3/UL (140-415); RED BLOOD COUNT 2.62 10^6/ul (4.70-6.10); WHITE BLOOD COUNT 9.9 10^3/ul (4.8-10.8)
[2016-10-24 07:13] LABS: ALBUMIN 3.2 g/dl (3.3-4.9); BILIRUBIN,INDIRECT 0.3 mg/dl (0-1.1); BILIRUBIN,TOTAL 0.3 mg/dl (0.2-1.3); CALCIUM 8.6 mg/dl (8.4-10.2); CREATININE 4.63 mg/dl (0.61-1.24); POTASSIUM 4.4 mmol/L (3.5-5.1); TOTAL PROTEIN 6.4 g/dl (6.1-8.1)
[2016-10-24 07:30] VITALS: BP 167/70; RESP 18
[2016-10-24] MEDS: INSULIN ASPART [NOVOLOG] 3 ML PEN SC SCH ×4 (07:35→21:05)
[2016-10-24] MEDS: APIXABAN 5 MG TABLET PO SCH ×2 (09:05→20:58)
[2016-10-24] MEDS: DOCUSATE SODIUM 100 MG CAP PO SCH ×2 (09:06→20:57)
[2016-10-24] MEDS: CLOPIDOGREL 75 MG TAB PO SCH (09:06)
[2016-10-24] MEDS: METOPROLOL 50 MG TAB PO SCH ×2 (09:06→20:57)
[2016-10-24] MEDS: ASPIRIN 81 MG TAB PO SCH (09:06)
[2016-10-24] MEDS ORDERED: SOD FERRIC GLUC COMPLX 125 MG in SOD CHLORIDE 0.9% 100 ML IVPB SCH (11:00)
[2016-10-24 11:55] LABS: ADD UMIC YES; UR ASCORBIC ACID NEGATIVE (NEGATIVE); UR BACTERIA FEW /HPF (NONE SEEN); UR BILIRUBIN (Dip) NEGATIVE (NEGATIVE); UR BLOOD (Dip) 2+ mg/dL (NEGATIVE); UR CLARITY CLOUDY (CLEAR); UR COLOR AMBER (YELLOW); UR GLUCOSE (Dip) 2+ mg/dL (NEGATIVE); UR KETONES (Dip) TRACE mg/dL (NEGATIVE); UR LEUKOCYTE ESTERASE (Dip) TRACE Leu/ul (NEGATIVE); UR NITRITE (Dip) NEGATIVE (NEGATIVE); UR RBC 5 /HPF (0-5); UR SPECIFIC GRAVITY (Dip) 1.023 (1.003-1.030); UR TOTAL PROTEIN (Dip) 3+ mg/dl (NEGATIVE); UR UROBILINOGEN (Dip) NEGATIVE (NEGATIVE)
--- NOTE | 2016-10-24 12:04 | CONS ---
DATE OF ADMISSION: 10/23/2016 DATE OF CONSULTATION: REHABILITATION POST ADMISSION PHYSICIAN EVALUATION: REHABILITATION IMPAIRMENT CATEGORY: Cardiac debility secondary to acute on chronic heart failure, non ST elevation [place], status post cardiac catheterization and stent placement. ACTIVE COMORBIDITIES: 1. status post acute respiratory failure. 2. End-stage renal disease, on hemodialysis. 3. Paroxysmal atrial fibrillation. 4. Hypertension. 5. Diabetes mellitus type 2. 6. Anemia. 7. Impairments in self-care and mobility. HISTORY OF PRESENT ILLNESS: Patient is a very pleasant, 85-year- old gentleman with a history of multiple medical comorbidities, who was initially hospitalized approximately 2 weeks ago for chest pain and shortness of breath. The patient was transitioned to a fpc facility where his shortness of breath worsened. He presented to the emergency room at [facility] where he was noted to have acute congestive heart failure in addition to non-ST elevation [place] and respiratory failure. The patient underwent a cardiac catheterization and stent placement. His hospital course was also notable for atrial fibrillation, anemia, and he did receive dialysis for his end- stage renal disease. The patient now has significant impairments in self-care, mobility, as compared to baseline and has been cleared to transfer to the rehabilitation unit for comprehensive interdisciplinary rehab care. FUNCTIONAL HISTORY: Prior to recent events, he was independent in self-care tasks and mobility. Currently, he requires minimal to moderate assist for self-care and mobility tasks. I have reviewed the preadmission screen and patient's current functional status is consistent with the preadmission screen. SOCIAL HISTORY: Patient reports living at home with his in an apartment with elevator access. He does hope to return there upon discharge. PAST MEDICAL HISTORY: 1. End-stage renal disease, on hemodialysis. 2. Hypertension. 3. Diabetes mellitus type 2. MEDICATION: At this time: 1. Albuterol inhaler. 2. Eliquis 2.5 mg p.o. b.i.d. 3. Aspirin 81 mg p.o. q.day. 4. Lipitor 40 mg p.o. q.h.s. 5. Plavix 75 mg p.o. q.day. 6. Insulin sliding scale. 7. Lopressor 50 mg p.o. b.i.d. 8. Protonix 40 mg p.o. q.day. ALLERGIES: PATIENT WITH NO KNOWN DRUG ALLERGIES. PHYSICAL EXAMINATION: The patient is currently afebrile with stable vital signs. HEENT: The extraocular motions are intact. The oropharynx is clear. NECK: Supple. LUNGS: Clear anteriorly. HEART: S1, S2. ABDOMEN: Soft, nontender. Positive bowel sounds. NEUROLOGICALLY: Awake and alert. He is oriented to person and hospital. He will follow simple one-step commands. He demonstrates antigravity strength in bilateral upper extremity and lower extremity. He does have some impaired dynamic balance. PLAN: The patient has been admitted for comprehensive interdisciplinary acute rehab and is anticipated to tolerate 3 hours of daily therapy in divided doses for at least 5/7 days a week. The treatment plan will include. 1. Physical therapy to focus on bed mobility, transfers, and household ambulation with the goal of having patient reach a standby assist level. 2. Occupational therapy to focus on hygiene, grooming, dressing, bathing and toileting activities with goal of having patient reach standby assist level. 3. Rehabilitation nursing for carry over of therapeutic interventions. The goal of continent to bowel, bladder, and the goal of the patient and family education with regards to the aforementioned issues. Estimated length of stay 10 days. Disposition goal, home. Rehabilitation barrier, end-stage renal disease. Intervention for barrier, hemodialysis. I acknowledge I performed a full physical examination on this patient within 24 hours of admission to the rehabilitation unit and believe the patient is a good candidate for comprehensive interdisciplinary rehab care and is anticipated to make reasonable goals in a reasonable period of time as outlined above. End dictation. Dictated By: Otoniel Goodman MD /raad/ruth /Document#: [id number] MUNA
--- NOTE | 2016-10-24 13:23 | CONS ---
Date/Time of Note Date/Time of Note DATE: 10/24/16 TIME: 13:20 Assessment/Plan Assessment/Plan Chief Complaint/Hosp Course # ESRD. Plan HD for tomorrow # DM. Controlled # CAD, s/p NH, PCI # Anemia. Continue MONICA # Debilitation. Continue acute rehab Problems: Consultation Date/Type/Reason Admit Date/Time Oct 23, 2016 at 19:25 Initial Consult Date Type of Consultation: Nephrology 24 HR Interval Summary Free Text/Dictation Alert, ambulating with PT, no complaints. Exam/Review of Systems Vital Signs Vitals Vital Signs Date Time Temp Pulse Resp B/P Pulse Ox O2 Delivery O2 Flow Rate FiO2 10/24/16 07:30 97.7 76 18 167/70 96 10/24/16 05:30 21 Intake and Output 10/23/16 10/23/16 10/24/16 15:00 23:00 07:00 Intake Total 200 ml Balance 200 ml Exam Constitutional: alert Neck: No jvd Respiratory: clear to auscultation Cardiovascular: regular rate and rhythm Extremities: No edema Results Result Diagram: 10/24/16 0634 10/24/16 0634 Results 24 hrs Laboratory Tests Test 10/23/16 20:26 10/24/16 06:34 10/24/16 08:00 10/24/16 11:17 Bedside Glucose 162 114 White Blood Count 9.9 Red Blood Count 2.62 L Hemoglobin 9.3 L Hematocrit 29.4 L Mean Corpuscular Volume 112.2 H Mean Corpuscular Hemoglobin 35.5 H Mean Corpuscular Hemoglobin Concent 31.6 L Red Cell Distribution Width 19.0 H Platelet Count 257 # Mean Platelet Volume 10.0 Neutrophils % 63.6 Lymphocytes % 16.5 Monocytes % 13.1 H Eosinophils % 5.2 Basophils % 0.6 Nucleated Red Blood Cells % 0.0 Neutrophils # (Manual) 6.3 Lymphocytes # 1.6 Monocytes # 1.3 H Eosinophils # 0.5 Basophils # 0.1 Nucleated Red Blood Cells # 0.0 Sodium Level 141 Potassium Level 4.4 Chloride Level 105 Carbon Dioxide Level 27 Anion Gap 13 Blood Urea Nitrogen 22 H Creatinine 4.63 H Glucose Level 115 Calcium Level 8.6 Total Bilirubin 0.3 Direct Bilirubin 0.00 Indirect Bilirubin 0.3 Aspartate Amino Transf (AST/SGOT) 41 Alanine Aminotransferase (ALT/SGPT) 40 Alkaline Phosphatase 248 H Total Protein 6.4 Albumin 3.2 L Globulin 3.20 Albumin/Globulin Ratio 1.00 Urine Color KATHRINE Urine Clarity CLOUDY A Urine pH 5.0 Urine Specific [place] 1.023 Urine Ketones TRACE A Urine Nitrite NEGATIVE Urine Bilirubin NEGATIVE Urine Urobilinogen NEGATIVE Urine Leukocyte Esterase TRACE A Urine Microscopic RBC 5 Urine Microscopic WBC 32 H Urine Bacteria FEW A Urine Hemoglobin 2+ H Urine Glucose 2+ H Urine Total Protein 3+ H Test 10/24/16 11:27 10/24/16 12:17 Bedside Glucose 169 185 Medications Medications Current Medications Ondansetron HCl (Zofran Inj) 4 mg Q6H PRN IV NAUSEA AND/OR VOMITING; Start 10/23 at 19:54 Morphine Sulfate (morphine) 2 mg Q4H PRN IV SEVERE PAIN LEVEL 7-10; Start at 19:54 Aspirin (Aspirin) 81 mg DAILY PO Last administered on 10/24/16 09:06; Admin Dose 81 MG; Start 10/23/16 at 19:54 Hydralazine HCl (Apresoline) 10 mg Q6H PRN IV SBP>160; Start 10/23/16 at 19:54 Atorvastatin Calcium (Lipitor) 40 mg QHS PO Last administered on 10/23/16t 21:23 ; Admin Dose 40 MG; Start 10/23/16 at 19:54 Epoetin Guy (Epogen (Esrd)) 10,000 units MoWeFr@17 SC ; Start 10/23/16 at 19:54 Miscellaneous Information 1 ea NOTE XX ; Start 10/23/16 at 19:54 Glucose (Glutose) 15 gm Q15M PRN PO DECREASED GLUCOSE; Start 10/23/16 at 19:54 Glucose (Glutose) 22.5 gm Q15M PRN PO DECREASED GLUCOSE; Start 10/23/16 at 19:54 Dextrose (D50w Syringe) 25 ml Q15M PRN IV DECREASED GLUCOSE; Start 10/23/16 at 19:54 Dextrose (D50w Syringe) 50 ml Q15M PRN IV DECREASED GLUCOSE; Start 10/23/16 at 19:54 Glucagon (Glucagen) 1 mg Q15M PRN IM DECREASED GLUCOSE; Start 10/23/16 at 19:54 Glucose (Glutose) 15 gm Q15M PRN BUCCAL DECREASED GLUCOSE; Start 10/23/16 at 19: 54 Diagnostic Test (Pha) (Accu-Chek) 1 ea 02 XX ; Start 10/23/16 at 19:54 Clopidogrel Bisulfate (plaVIX) 75 mg DAILY PO Last administered on 10/24/16 09: 06; Admin Dose 75 MG; Start 10/23/16 at 19:54 Acetaminophen (Tylenol Tab) 650 mg Q4H PRN PO NON-CARDIAC PAIN LEVEL (1-3); Start 10/23/16 at 19:54 Metoprolol Tartrate (Lopressor) 50 mg BID PO Last administered on 10/24/16 09: 06; Admin Dose 50 MG; Start 10/23/16 at 19:54 Pantoprazole (Protonix Tab) 40 mg DAILY@06 PO Last administered on 10/24/16 06: 45; Admin Dose 40 MG; Start 10/23/16 at 19:54 Apixaban (Eliquis) 2.5 mg BID PO Last administered on 10/24/16 09:05; Admin Dose 2.5 MG; Start 10/23/16 at 19:54 Docusate Sodium (Colace) 100 mg BID PO Last administered on 10/24/16 09:06; Admin Dose 100 MG; Start 10/23/16 at 21:08 Senna (Senokot) 1 tab HS PO Last administered on 10/23/16 21:24; Admin Dose 1 TAB; Start 10/23/16 at 21:08 Bisacodyl (Dulcolax Supp) 10 mg DAILY PRN [place] CONSTIPATION; Start 10/23/16 at 21: 30 Magnesium Hydroxide (Milk Of Mag) 30 ml BID PRN PO CONSTIPATION; Start 10/23/16 at 21:30 Lactulose (Enulose) 20 gm DAILY PRN PO CONSTIPATION Last administered on 09:05; Admin Dose 20 GM; Start 10/23/16 at 21:30 MANJEET TAYLOR MD Oct 24, 2016 13:23
[2016-10-24 14:00] VITALS: BP 132/62; RESP 20
--- NOTE | 2016-10-24 18:10 | PN ---
DATE: 10/24/2016 SUBJECTIVE: The patient has been transferred to the rehab unit. Complains of mild weakness. Had no BM for the last 2 days. Denies any chest pain or shortness of breath. OBJECTIVE DATA: On physical exam, patient is awake, alert. VITAL SIGNS: Temperature 97.7, blood pressure 167/70. Moderate pallor with cyanosis. CHEST: Clinically clear. HEART: S1, S2. No rubs or gallops. ABDOMEN: Soft, nontender. No hepatosplenomegaly. EXTREMITIES: No edema. Homans negative. LABORATORY AND DIAGNOSTIC DATA: WBC count 9.9, hematocrit 29.4, MCV 112.2, platelet count 257,000. Sodium 141, potassium 4.4, BUN 22, creatinine 4.63. Blood glucose levels in the normal range. IMPRESSION: 1. Status post non ST-elevation myocardial infarction complicated by acute on chronic diastolic failure. 2. Status post percutaneous transluminal coronary angioplasty of the circumflex and right coronary artery. 3. Paroxysmal atrial fibrillation. 4. Acute respiratory failure, resolving. 5. End-stage renal disease on hemodialysis. 6. Diabetes mellitus, type 2, well controlled. 7. Dyslipidemia. 8. Status post pneumonia. PLAN: Vancomycin and cefepime have been DC-ed. We will continue to monitor his renal function for heart failure. Continue physical therapy. We will give lactulose for constipation. Dictated By: Saeid Galeas MD /raad/farhad /Document#: [id number]
[2016-10-24 20:00] VITALS: BP 137/60; RESP 18
[2016-10-24] MEDS: ATORVASTATIN 40 MG TAB PO SCH (20:56)
[2016-10-24] MEDS: SENNA TAB PO SCH (20:57)
[2016-10-25] VITALS (9 sets, daily range): BP systolic 101–161; BP diastolic 47–70; PULSE 56–66; RESP 18–20
[2016-10-25] MEDS: ALBUTEROL/IPRATROPIUM (NEB) 3 ML AMP HHN SCH ×6 (01:40→20:45)
[2016-10-25] MEDS: ACCU-CHEK XX SCH (02:43)
[2016-10-25] MEDS: PANTOPRAZOLE (EC) 40 MG TAB PO SCH (06:22)
[2016-10-25] MEDS: INSULIN ASPART [NOVOLOG] 3 ML PEN SC SCH ×4 (07:35→21:00)
[2016-10-25] MEDS: ASPIRIN 81 MG TAB PO SCH (08:17)
[2016-10-25] MEDS: APIXABAN 5 MG TABLET PO SCH ×2 (08:18→21:11)
[2016-10-25] MEDS: METOPROLOL 50 MG TAB PO SCH ×2 (08:18→21:11)
[2016-10-25] MEDS: CLOPIDOGREL 75 MG TAB PO SCH (08:18)
[2016-10-25] MEDS: DOCUSATE SODIUM 100 MG CAP PO SCH ×2 (08:18→21:10)
--- NOTE | 2016-10-25 14:06 | CONS ---
Date/Time of Note Date/Time of Note DATE: 10/25/16 TIME: 14:05 Assessment/Plan Assessment/Plan Chief Complaint/Hosp Course # ESRD. HD today. # DM. Controlled # CAD, s/p [place], PCI # Anemia. Continue MONICA # Debilitation. Continue acute rehab Problems: Consultation Date/Type/Reason Admit Date/Time Oct 23, 2016 at 19:25 Type of Consultation: Nephrology 24 HR Interval Summary Free Text/Dictation Seen on HD, tolerating well, no complaints. Exam/Review of Systems Vital Signs Vitals Vital Signs Date Time Temp Pulse Resp B/P Pulse Ox O2 Delivery O2 Flow Rate FiO2 10/25/16 13:30 66 10/25/16 13:30 16 10/25/16 08:38 97 21 10/25/16 07:30 98.8 161/70 Intake and Output 10/24/16 10/24/16 10/25/16 15:00 23:00 07:00 Intake Total 110 ml 420 ml 550 ml Balance 110 ml 420 ml 550 ml Exam Constitutional: alert Neck: No jvd Respiratory: clear to auscultation Cardiovascular: regular rate and rhythm Gastrointestinal: soft Extremities: No edema Results Result Diagram: 10/24/16 0634 10/24/16 0634 Results 24 hrs Laboratory Tests Test 10/24/16 17:20 10/24/16 20:54 10/25/16 02:08 10/25/16 11:54 Bedside Glucose 197 239 H 142 175 Medications Medications Current Medications Ondansetron HCl (Zofran Inj) 4 mg Q6H PRN IV NAUSEA AND/OR VOMITING; Start 10/23 at 19:54 Morphine Sulfate (morphine) 2 mg Q4H PRN IV SEVERE PAIN LEVEL 7-10; Start at 19:54 Aspirin (Aspirin) 81 mg DAILY PO Last administered on 10/25/16 08:17; Admin Dose 81 MG; Start 10/23/16 at 19:54 Hydralazine HCl (Apresoline) 10 mg Q6H PRN IV SBP>160; Start 10/23/16 at 19:54 Atorvastatin Calcium (Lipitor) 40 mg QHS PO Last administered on 10/24/16 20:56 ; Admin Dose 40 MG; Start 10/23/16 at 19:54 Epoetin Guy (Epogen (Esrd)) 10,000 units MoWeFr@17 SC ; Start 10/23/16 at 19:54 Miscellaneous Information 1 ea NOTE XX ; Start 10/23/16 at 19:54 Glucose (Glutose) 15 gm Q15M PRN PO DECREASED GLUCOSE; Start 10/23/16 at 19:54 Glucose (Glutose) 22.5 gm Q15M PRN PO DECREASED GLUCOSE; Start 10/23/16 at 19:54 Dextrose (D50w Syringe) 25 ml Q15M PRN IV DECREASED GLUCOSE; Start 10/23/16 at 19:54 Dextrose (D50w Syringe) 50 ml Q15M PRN IV DECREASED GLUCOSE; Start 10/23/16 at 19:54 Glucagon (Glucagen) 1 mg Q15M PRN IM DECREASED GLUCOSE; Start 10/23/16 at 19:54 Glucose (Glutose) 15 gm Q15M PRN BUCCAL DECREASED GLUCOSE; Start 10/23/16 at 19: 54 Diagnostic Test (Pha) (Accu-Chek) 1 ea 02 XX Last administered on 10/25/16 02: 43; Admin Dose 1 EA; Start 10/23/16 at 19:54 Clopidogrel Bisulfate (plaVIX) 75 mg DAILY PO Last administered on 10/25/16 08: 18; Admin Dose 75 MG; Start 10/23/16 at 19:54 Acetaminophen (Tylenol Tab) 650 mg Q4H PRN PO NON-CARDIAC PAIN LEVEL (1-3); Start 10/23/16 at 19:54 Metoprolol Tartrate (Lopressor) 50 mg BID PO Last administered on 10/25/16 08: 18; Admin Dose 50 MG; Start 10/23/16 at 19:54 Pantoprazole (Protonix Tab) 40 mg DAILY@06 PO Last administered on 10/25/16 06: 22; Admin Dose 40 MG; Start 10/23/16 at 19:54 Apixaban (Eliquis) 2.5 mg BID PO Last administered on 10/25/16 08:18; Admin Dose 2.5 MG; Start 10/23/16 at 19:54 Docusate Sodium (Colace) 100 mg BID PO Last administered on 10/25/16 08:18; Admin Dose 100 MG; Start 10/23/16 at 21:08 Senna (Senokot) 1 tab HS PO Last administered on 10/24/16 20:57; Admin Dose 1 TAB; Start 10/23/16 at 21:08 Bisacodyl (Dulcolax Supp) 10 mg DAILY PRN [place] CONSTIPATION; Start 10/23/16 at 21: 30 Magnesium Hydroxide (Milk Of Mag) 30 ml BID PRN PO CONSTIPATION; Start 10/23/16 at 21:30 Lactulose (Enulose) 20 gm DAILY PRN PO CONSTIPATION Last administered on 09:05; Admin Dose 20 GM; Start 10/23/16 at 21:30 MANJEET TAYLOR MD Oct 25, 2016 14:06
[2016-10-25] MEDS ORDERED: MAGNESIUM CITRATE 300 ML BTL PO ONE (17:00)
--- NOTE | 2016-10-25 19:04 | PN ---
DATE: 10/25/2016 SUBJECTIVE DATA: The patient has generalized weakness. Denies any chest pain, or shortness of breath. OBJECTIVE DATA: VITAL SIGNS: Temperature 98.8, blood pressure 164/70, respiratory 20 per minute. HEENT: Mild pallor without cyanosis. Tongue coated, moist. NECK: Neck is supple. RESPIRATORY: Chest is clinically clear. HEART: S1, S2. No definite gallops. ABDOMEN: Soft, nontender. No hepatosplenomegaly. EXTREMITIES: No edema. Homans negative. IMPRESSION: 1. Status post-non-ST elevation myocardial infarction, complicated by acute on chronic diastolic failure. 2. Status post-percutaneous transluminal coronary angioplasty of the circumflex and coronary artery. 3. Paroxysmal atrial fibrillation. 4. Acute respiratory failure, resolved. 5. End-stage renal disease, on hemodialysis. 6. Diabetes mellitus type 2, well-controlled. 7. Dyslipidemia. 8. Status post-pneumonia. PLAN: Continue rehab per Dr. Campa . Hemodialysis per Dr. Cummings. Bowel measures as patient has not had a BM in several days. Dictated By: Saeid Galeas MD /raad/khalif /Document#: [id number] MUNA
[2016-10-25] MEDS: ATORVASTATIN 40 MG TAB PO SCH (21:10)
[2016-10-25] MEDS: SENNA TAB PO SCH (21:10)
[2016-10-26] MEDS: ALBUTEROL/IPRATROPIUM (NEB) 3 ML AMP HHN SCH ×6 (01:31→20:01)
[2016-10-26] MEDS: ACCU-CHEK XX SCH (02:00)
[2016-10-26 02:20] VITALS: BP 133/61; RESP 18
[2016-10-26] MEDS: PANTOPRAZOLE (EC) 40 MG TAB PO SCH (06:45)
[2016-10-26 07:30] VITALS: BP 135/61; RESP 18
[2016-10-26] MEDS: INSULIN ASPART [NOVOLOG] 3 ML PEN SC SCH ×4 (07:35→21:00)
[2016-10-26] MEDS: METOPROLOL 50 MG TAB PO SCH ×2 (09:00→21:23)
--- NOTE | 2016-10-26 09:18 | CONS ---
Date/Time of Note Date/Time of Note DATE: 10/26/16 TIME: 09:16 Consult Date/Type/Reason Admit Date/Time Oct 23, 2016 at 19:25 Initial Consult Date Type of Consultation: Nephrology Objective Vital Signs Date Time Temp Pulse Resp B/P Pulse Ox O2 Delivery O2 Flow Rate FiO2 10/26/16 05:03 76 18 92 21 10/26/16 02:20 98.8 133/61 Intake and Output 10/25/16 10/25/16 10/26/16 14:59 22:59 06:59 Intake Total 300 ml 540 ml 350 ml Output Total 3000 ml 100 ml Balance -2700 ml 540 ml 250 ml INTERDISCIPLINARY TEAM CONFERENCE BOWEL- Cont BLADDER-Cont SKIN- intact OT- DRESSING-cga BATHING-cga TOILETING-cga PT- BED MOBILITY-cga TRANSFERS-min AMBULATION-cga 150 feet A/P- Interdisciplinary team conference held today. Please see interdisciplinary sheet. Working toward d.c. on 10/30 with post discharge follow up of physical therapy, occupational therapy. Results/Medications Result Diagram: 10/24/16 0634 10/24/16 0634 Results 24 hrs Laboratory Tests Test 10/25/16 11:54 10/25/16 17:20 10/25/16 21:22 10/26/16 07:56 Bedside Glucose 175 242 H 141 129 Medications Current Medications Ondansetron HCl (Zofran Inj) 4 mg Q6H PRN IV NAUSEA AND/OR VOMITING; Start 10/23 at 19:54 Morphine Sulfate (morphine) 2 mg Q4H PRN IV SEVERE PAIN LEVEL 7-10; Start at 19:54 Aspirin (Aspirin) 81 mg DAILY PO Last administered on 10/25/16t 08:17; Admin Dose 81 MG; Start 10/23/16 at 19:54 Hydralazine HCl (Apresoline) 10 mg Q6H PRN IV SBP>160; Start 10/23/16 at 19:54 Atorvastatin Calcium (Lipitor) 40 mg QHS PO Last administered on 10/25/16t 21:10 ; Admin Dose 40 MG; Start 10/23/16 at 19:54 Epoetin Guy (Epogen (Esrd)) 10,000 units MoWeFr@17 SC ; Start 10/23/16 at 19:54 Miscellaneous Information 1 ea NOTE XX ; Start 10/23/16 at 19:54 Glucose (Glutose) 15 gm Q15M PRN PO DECREASED GLUCOSE; Start 10/23/16 at 19:54 Glucose (Glutose) 22.5 gm Q15M PRN PO DECREASED GLUCOSE; Start 10/23/16 at 19:54 Dextrose (D50w Syringe) 25 ml Q15M PRN IV DECREASED GLUCOSE; Start 10/23/16 at 19:54 Dextrose (D50w Syringe) 50 ml Q15M PRN IV DECREASED GLUCOSE; Start 10/23/16 at 19:54 Glucagon (Glucagen) 1 mg Q15M PRN IM DECREASED GLUCOSE; Start 10/23/16 at 19:54 Glucose (Glutose) 15 gm Q15M PRN BUCCAL DECREASED GLUCOSE; Start 10/23/16 at 19: 54 Diagnostic Test (Pha) (Accu-Chek) 1 ea 02 XX Last administered on 10/25/16 02: 43; Admin Dose 1 EA; Start 10/23/16 at 19:54 Clopidogrel Bisulfate (plaVIX) 75 mg DAILY PO Last administered on 10/25/16 08: 18; Admin Dose 75 MG; Start 10/23/16 at 19:54 Acetaminophen (Tylenol Tab) 650 mg Q4H PRN PO NON-CARDIAC PAIN LEVEL (1-3); Start 10/23/16 at 19:54 Metoprolol Tartrate (Lopressor) 50 mg BID PO Last administered on 10/25/16 21: 11; Admin Dose 50 MG; Start 10/23/16 at 19:54 Pantoprazole (Protonix Tab) 40 mg DAILY@06 PO Last administered on 10/26/16 06: 45; Admin Dose 40 MG; Start 10/23/16 at 19:54 Apixaban (Eliquis) 2.5 mg BID PO Last administered on 10/25/16 21:11; Admin Dose 2.5 MG; Start 10/23/16 at 19:54 Docusate Sodium (Colace) 100 mg BID PO Last administered on 10/25/16 21:10; Admin Dose 100 MG; Start 10/23/16 at 21:08 Senna (Senokot) 1 tab HS PO Last administered on 10/25/16 21:10; Admin Dose 1 TAB; Start 10/23/16 at 21:08 Bisacodyl (Dulcolax Supp) 10 mg DAILY PRN [place] CONSTIPATION; Start 10/23/16 at 21: 30 Magnesium Hydroxide (Milk Of Mag) 30 ml BID PRN PO CONSTIPATION; Start 10/23/16 at 21:30 Lactulose (Enulose) 20 gm DAILY PRN PO CONSTIPATION Last administered on 09:05; Admin Dose 20 GM; Start 10/23/16 at 21:30 NEVA ZHOU MD Oct 26, 2016 09:18
[2016-10-26] MEDS: CLOPIDOGREL 75 MG TAB PO SCH (09:45)
[2016-10-26] MEDS: ASPIRIN 81 MG TAB PO SCH (09:45)
[2016-10-26] MEDS: DOCUSATE SODIUM 100 MG CAP PO SCH ×2 (09:45→21:22)
[2016-10-26] MEDS: APIXABAN 5 MG TABLET PO SCH ×2 (09:46→21:22)
[2016-10-26 14:00] VITALS: BP 139/59; RESP 20
--- NOTE | 2016-10-26 17:22 | PN ---
DATE: 10/26/2016 SUBJECTIVE: The patient denies any chest pain or shortness of breath. He did have a bowel movement yesterday. OBJECTIVE DATA: GENERAL: The patient is awake and alert. VITAL SIGNS: Temperature 98.2, blood pressure 113/59, O2 sat 99 percent on room air. NECK: JVD is not increased. CHEST: Clinically clear. HEART: S1, S2. No definite gallops. EXTREMITIES: No edema. LABORATORY AND DIAGNOSTIC DATA: Blood glucose level was 129 this morning, 229 at 12 noon. IMPRESSION: 1. Status post [id number] myocardial infarction, status post percutaneous transluminal coronary angioplasty of the circumflex and right coronary artery. 2. Paroxysmal atrial fibrillation. 3. Acute respiratory failure status post pneumonia, resolved. 4. End-stage renal disease on hemodialysis. 5. Diabetes mellitus type 2. 6. Dyslipidemia. PLAN: We will continue rehab per . The patient continues to improve on a daily basis. Dictated By: Saeid Galeas MD /raad/billy /Document#: [id number]
[2016-10-26] MEDS: EPOETIN 10000 UNITS/1 ML INJ (ESRD) SC SCH (18:54)
[2016-10-26 19:50] VITALS: BP 145/67; RESP 20
[2016-10-26] MEDS: ATORVASTATIN 40 MG TAB PO SCH (21:22)
[2016-10-26] MEDS: SENNA TAB PO SCH (21:22)
[2016-10-27] VITALS (11 sets, daily range): BP systolic 103–172; BP diastolic 50–73; PULSE 66–89; RESP 18
[2016-10-27] MEDS: ALBUTEROL/IPRATROPIUM (NEB) 3 ML AMP HHN SCH ×6 (01:26→20:22)
[2016-10-27] MEDS: ACCU-CHEK XX SCH (02:00)
[2016-10-27] MEDS: PANTOPRAZOLE (EC) 40 MG TAB PO SCH (06:25)
[2016-10-27] MEDS: INSULIN ASPART [NOVOLOG] 3 ML PEN SC SCH ×4 (07:35→20:39)
--- NOTE | 2016-10-27 08:25 | CONS ---
Date/Time of Note Date/Time of Note DATE: 10/27/16 TIME: 08:22 Assessment/Plan Assessment/Plan Additional Assessment/Plan 1. CKD sec to DM, to be dialyzed today 2. Acute OK, stable 3. CHF, resolved 4. Anemia is stable, Inc. MCV noted, cause (b12 and folate are nl, siep pending from acute admit), consider Heme eval 5. Paroxysmal A fib on Eliquis, now in reg rhythm 6. On acute rehab to [facility] Consultation Date/Type/Reason Admit Date/Time Oct 23, 2016 at 19:25 Initial Consult Date Type of Consultation: Nephrology Detailed Summary Respiratory: No cough, No shortness of breath Cardiovascular: No chest pain Gastrointestinal: no complaints Genitourinary: no complaints Exam/Review of Systems Vital Signs Vitals Vital Signs Date Time Temp Pulse Resp B/P Pulse Ox O2 Delivery O2 Flow Rate FiO2 10/27/16 07:34 72 17 95 21 10/27/16 02:48 98.5 160/60 Intake and Output 10/26/16 10/26/16 10/27/16 15:00 23:00 07:00 Intake Total 520 ml Balance 520 ml Exam Neck: No jvd Respiratory: clear to auscultation Cardiovascular: regular rate and rhythm Gastrointestinal: soft, No hepatomegaly, No splenomegaly Extremities: No edema Results Result Diagram: 10/24/16 0634 10/24/16 0634 Results 24 hrs Laboratory Tests Test 10/26/16 12:06 10/26/16 17:27 10/26/16 20:12 10/27/16 08:01 Bedside Glucose 229 H 227 H 171 133 Medications Medications Current Medications Ondansetron HCl (Zofran Inj) 4 mg Q6H PRN IV NAUSEA AND/OR VOMITING; Start 10/23 at 19:54 Morphine Sulfate (morphine) 2 mg Q4H PRN IV SEVERE PAIN LEVEL 7-10; Start at 19:54 Aspirin (Aspirin) 81 mg DAILY PO Last administered on 10/26/16 09:45; Admin Dose 81 MG; Start 10/23/16 at 19:54 Hydralazine HCl (Apresoline) 10 mg Q6H PRN IV SBP>160; Start 10/23/16 at 19:54 Atorvastatin Calcium (Lipitor) 40 mg QHS PO Last administered on 10/26/16 21:22 ; Admin Dose 40 MG; Start 10/23/16 at 19:54 Epoetin Guy (Epogen (Esrd)) 10,000 units MoWeFr@17 SC Last administered on 10/26 18:54; Admin Dose 10,000 UNITS; Start 10/23/16 at 19:54 Miscellaneous Information 1 ea NOTE XX ; Start 10/23/16 at 19:54 Glucose (Glutose) 15 gm Q15M PRN PO DECREASED GLUCOSE; Start 10/23/16 at 19:54 Glucose (Glutose) 22.5 gm Q15M PRN PO DECREASED GLUCOSE; Start 10/23/16 at 19:54 Dextrose (D50w Syringe) 25 ml Q15M PRN IV DECREASED GLUCOSE; Start 10/23/16 at 19:54 Dextrose (D50w Syringe) 50 ml Q15M PRN IV DECREASED GLUCOSE; Start 10/23/16 at 19:54 Glucagon (Glucagen) 1 mg Q15M PRN IM DECREASED GLUCOSE; Start 10/23/16 at 19:54 Glucose (Glutose) 15 gm Q15M PRN BUCCAL DECREASED GLUCOSE; Start 10/23/16 at 19: 54 Diagnostic Test (Pha) (Accu-Chek) 1 ea 02 XX Last administered on 10/25/16 02: 43; Admin Dose 1 EA; Start 10/23/16 at 19:54 Clopidogrel Bisulfate (plaVIX) 75 mg DAILY PO Last administered on 10/26/16 09: 45; Admin Dose 75 MG; Start 10/23/16 at 19:54 Acetaminophen (Tylenol Tab) 650 mg Q4H PRN PO NON-CARDIAC PAIN LEVEL (1-3); Start 10/23/16 at 19:54 Metoprolol Tartrate (Lopressor) 50 mg BID PO Last administered on 10/26/16 21: 23; Admin Dose 50 MG; Start 10/23/16 at 19:54 Pantoprazole (Protonix Tab) 40 mg DAILY@06 PO Last administered on 10/27/16 06: 25; Admin Dose 40 MG; Start 10/23/16 at 19:54 Apixaban (Eliquis) 2.5 mg BID PO Last administered on 10/26/16 21:22; Admin Dose 2.5 MG; Start 10/23/16 at 19:54 Docusate Sodium (Colace) 100 mg BID PO Last administered on 10/26/16 21:22; Admin Dose 100 MG; Start 10/23/16 at 21:08 Senna (Senokot) 1 tab HS PO Last administered on 10/26/16 21:22; Admin Dose 1 TAB; Start 10/23/16 at 21:08 Bisacodyl (Dulcolax Supp) 10 mg DAILY PRN [place] CONSTIPATION; Start 10/23/16 at 21: 30 Magnesium Hydroxide (Milk Of Mag) 30 ml BID PRN PO CONSTIPATION; Start 10/23/16 at 21:30 Lactulose (Enulose) 20 gm DAILY PRN PO CONSTIPATION Last administered on 09:05; Admin Dose 20 GM; Start 10/23/16 at 21:30 RIVERA GALVEZ MD Oct 27, 2016 08:25
[2016-10-27] MEDS ORDERED: MULTIVIT/CA CARB/B CMPLX/FA TAB PO ONE (08:30)
[2016-10-27] MEDS: ASPIRIN 81 MG TAB PO SCH (08:47)
[2016-10-27] MEDS: CLOPIDOGREL 75 MG TAB PO SCH (08:48)
[2016-10-27] MEDS: DOCUSATE SODIUM 100 MG CAP PO SCH ×2 (08:48→20:38)
[2016-10-27] MEDS: APIXABAN 5 MG TABLET PO SCH ×2 (08:49→20:38)
[2016-10-27] MEDS: METOPROLOL 50 MG TAB PO SCH ×2 (08:50→20:38)
--- NOTE | 2016-10-27 12:39 | CONS ---
Date/Time of Note Date/Time of Note DATE: 10/27/16 TIME: 12:38 Consult Date/Type/Reason Admit Date/Time Oct 23, 2016 at 19:25 Type of Consultation: Nephrology Subjective Comfortable Objective pulm-cta sba ambulation Vital Signs Date Time Temp Pulse Resp B/P Pulse Ox O2 Delivery O2 Flow Rate FiO2 10/27/16 08:00 98.4 68 18 156/71 97 10/27/16 07:34 21 Intake and Output 10/26/16 10/26/16 10/27/16 15:00 23:00 07:00 Intake Total 520 ml Balance 520 ml Results/Medications Result Diagram: 10/24/16 0634 10/24/16 0634 Results 24 hrs Laboratory Tests Test 10/26/16 17:27 10/26/16 20:12 10/27/16 08:01 10/27/16 12:20 Bedside Glucose 227 H 171 133 198 Medications Current Medications Ondansetron HCl (Zofran Inj) 4 mg Q6H PRN IV NAUSEA AND/OR VOMITING; Start 10/23 at 19:54 Morphine Sulfate (morphine) 2 mg Q4H PRN IV SEVERE PAIN LEVEL 7-10; Start at 19:54 Aspirin (Aspirin) 81 mg DAILY PO Last administered on 10/27/16 08:47; Admin Dose 81 MG; Start 10/23/16 at 19:54 Hydralazine HCl (Apresoline) 10 mg Q6H PRN IV SBP>160; Start 10/23/16 at 19:54 Atorvastatin Calcium (Lipitor) 40 mg QHS PO Last administered on 10/26/16 21:22 ; Admin Dose 40 MG; Start 10/23/16 at 19:54 Epoetin Guy (Epogen (Esrd)) 10,000 units MoWeFr@17 SC Last administered on 10/26 18:54; Admin Dose 10,000 UNITS; Start 10/23/16 at 19:54 Miscellaneous Information 1 ea NOTE XX ; Start 10/23/16 at 19:54 Glucose (Glutose) 15 gm Q15M PRN PO DECREASED GLUCOSE; Start 10/23/16 at 19:54 Glucose (Glutose) 22.5 gm Q15M PRN PO DECREASED GLUCOSE; Start 10/23/16 at 19:54 Dextrose (D50w Syringe) 25 ml Q15M PRN IV DECREASED GLUCOSE; Start 10/23/16 at 19:54 Dextrose (D50w Syringe) 50 ml Q15M PRN IV DECREASED GLUCOSE; Start 10/23/16 at 19:54 Glucagon (Glucagen) 1 mg Q15M PRN IM DECREASED GLUCOSE; Start 10/23/16 at 19:54 Glucose (Glutose) 15 gm Q15M PRN BUCCAL DECREASED GLUCOSE; Start 10/23/16 at 19: 54 Diagnostic Test (Pha) (Accu-Chek) 1 ea 02 XX Last administered on 10/25/16 02: 43; Admin Dose 1 EA; Start 10/23/16 at 19:54 Clopidogrel Bisulfate (plaVIX) 75 mg DAILY PO Last administered on 10/27/16 08: 48; Admin Dose 75 MG; Start 10/23/16 at 19:54 Acetaminophen (Tylenol Tab) 650 mg Q4H PRN PO NON-CARDIAC PAIN LEVEL (1-3); Start 10/23/16 at 19:54 Metoprolol Tartrate (Lopressor) 50 mg BID PO Last administered on 10/26/16 21: 23; Admin Dose 50 MG; Start 10/23/16 at 19:54 Pantoprazole (Protonix Tab) 40 mg DAILY@06 PO Last administered on 10/27/16 06: 25; Admin Dose 40 MG; Start 10/23/16 at 19:54 Apixaban (Eliquis) 2.5 mg BID PO Last administered on 10/27/16 08:49; Admin Dose 2.5 MG; Start 10/23/16 at 19:54 Docusate Sodium (Colace) 100 mg BID PO Last administered on 10/27/16 08:48; Admin Dose 100 MG; Start 10/23/16 at 21:08 Senna (Senokot) 1 tab HS PO Last administered on 10/26/16 21:22; Admin Dose 1 TAB; Start 10/23/16 at 21:08 Bisacodyl (Dulcolax Supp) 10 mg DAILY PRN [place] CONSTIPATION; Start 10/23/16 at 21: 30 Lactulose (Enulose) 20 gm DAILY PRN PO CONSTIPATION Last administered on 09:05; Admin Dose 20 GM; Start 10/23/16 at 21:30 Assessment/Plan Additional Assessment/Plan Rehab- Cardiac debility secondary to acute on chronic heart failure, non ST elevation [place], status post cardiac catheterization and stent placement. Continue rehab program status post acute respiratory failure-stable End-stage renal disease, on hemodialysis. Paroxysmal atrial fibrillation. Hypertension. Diabetes mellitus type 2. Anemia. NEVA ZHOU MD Oct 27, 2016 12:39
--- NOTE | 2016-10-27 17:47 | PN ---
DATE: 10/27/2016 SUBJECTIVE: The patient overall feels well. Denies any chest pain, shortness of breath, or palpitations. Ambulating with physical therapy. OBJECTIVE DATA: VITAL SIGNS: Temperature 98.4, blood pressure 156/71, and O2 sat 97 percent. GENERAL: Mild pallor with cyanosis. CHEST: Clear. HEART: S1, S2. No definite gallops. EXTREMITIES: No edema. IMPRESSION: 1. Status post non ST elevation myocardial infarction status post percutaneous transluminal coronary angioplasty (PTCA) of the circumflex and right coronary artery. 2. Paroxysmal atrial fibrillation, presently in normal sinus rhythm, on Eliquis. 3. Acute respiratory failure status post pneumonia, resolved. 4. End-stage renal disease on hemodialysis. 5. Diabetes mellitus type 2, well controlled. 6. Dyslipidemia. PLAN: We will continue rehab per Dr. Campa. Dictated By: Saeid Galeas MD /raad/juhi /Document#: [id number]
[2016-10-27] MEDS: ATORVASTATIN 40 MG TAB PO SCH (20:38)
[2016-10-27] MEDS: SENNA TAB PO SCH (20:38)
[2016-10-28] MEDS: ALBUTEROL/IPRATROPIUM (NEB) 3 ML AMP HHN SCH ×6 (01:13→20:00)
[2016-10-28 02:00] VITALS: BP 137/66; RESP 18
[2016-10-28] MEDS: ACCU-CHEK XX SCH (02:00)
[2016-10-28] MEDS: PANTOPRAZOLE (EC) 40 MG TAB PO SCH (06:25)
[2016-10-28 06:56] LABS: ABNORMAL IP MESSAGE 1; BASOPHIL # 0.1 10^3/ul (0.0-0.1); BASOPHILS % 0.6 % (0.0-2.0); EOSINOPHILS # 0.4 10^3/ul (0.0-0.5); EOSINOPHILS % 4.4 % (0.0-7.0); HEMATOCRIT 28.8 % (42.0-52.0); LYMPHOCYTES # 1.5 10^3/ul (0.8-2.9); LYMPHOCYTES % 17.7 % (15.0-51.0); MEAN CORPUSCULAR HEMOGLOBIN 34.5 pg (29.0-33.0); MEAN CORPUSCULAR HGB CONC 31.3 g/dl (32.0-37.0); MEAN CORPUSCULAR VOLUME 110.3 fl (82.0-101.0); MEAN PLATELET VOLUME 9.9 fl (7.4-10.4); MONOCYTE # 1.8 10^3/ul (0.3-0.9); MONOCYTES % 20.8 % (0.0-11.0); NEUTROPHILS % 55.1 % (39.0-77.0); PLATELET COUNT 308 10^3/UL (140-415); POSITIVE DIFF @See below; RED BLOOD COUNT 2.61 10^6/ul (4.70-6.10); RED CELL DISTRIBUTION WIDTH 18.2 % (11.5-14.5); WHITE BLOOD COUNT 8.5 10^3/ul (4.8-10.8)
[2016-10-28 07:19] LABS: CALCIUM 8.1 mg/dl (8.4-10.2); CREATININE 3.54 mg/dl (0.61-1.24)
[2016-10-28] MEDS: INSULIN ASPART [NOVOLOG] 3 ML PEN SC SCH ×4 (07:35→21:13)
[2016-10-28 08:00] VITALS: BP 156/67; RESP 18
[2016-10-28] MEDS: DOCUSATE SODIUM 100 MG CAP PO SCH ×2 (08:27→21:07)
[2016-10-28] MEDS: ASPIRIN 81 MG TAB PO SCH (08:27)
[2016-10-28] MEDS: APIXABAN 5 MG TABLET PO SCH ×2 (08:27→21:08)
[2016-10-28] MEDS: CLOPIDOGREL 75 MG TAB PO SCH (08:31)
[2016-10-28] MEDS: METOPROLOL 50 MG TAB PO SCH ×2 (08:31→21:09)
--- NOTE | 2016-10-28 08:38 | CONS ---
Date/Time of Note Date/Time of Note DATE: 10/28/16 TIME: 08:36 Assessment/Plan Assessment/Plan Additional Assessment/Plan 1. CKD, to be HD tomm 2. Acute IN, stable 3. CHF resolved 4. DM, sugars are acceptable 5. I asked case management to start planning for OP dialysis 6. Anemia is stable Consultation Date/Type/Reason Admit Date/Time Oct 23, 2016 at 19:25 Type of Consultation: Nephrology Detailed Summary Respiratory: No cough, No shortness of breath Cardiovascular: No chest pain Gastrointestinal: no complaints Genitourinary: no complaints Exam/Review of Systems Vital Signs Vitals Vital Signs Date Time Temp Pulse Resp B/P Pulse Ox O2 Delivery O2 Flow Rate FiO2 10/28/16 04:19 65 18 95 21 10/28/16 02:00 97.5 137/66 Intake and Output 10/27/16 10/27/16 10/28/16 15:00 23:00 07:00 Intake Total 800 ml 900 ml Output Total 2500 ml Balance 800 ml -1600 ml Exam Neck: No jvd Respiratory: clear to auscultation Cardiovascular: regular rate and rhythm Gastrointestinal: soft Extremities: No edema (and no calf tend) Results Result Diagram: 10/28/1627 10/28/1627 Results 24 hrs Laboratory Tests Test 10/27/16 12:20 10/27/16 20:33 10/28/16 06:27 10/28/16 07:53 Bedside Glucose 198 179 128 White Blood Count 8.5 Red Blood Count 2.61 L Hemoglobin 9.0 L Hematocrit 28.8 L Mean Corpuscular Volume 110.3 H Mean Corpuscular Hemoglobin 34.5 H Mean Corpuscular Hemoglobin Concent 31.3 L Red Cell Distribution Width 18.2 H Platelet Count 308 Mean Platelet Volume 9.9 Neutrophils % 55.1 Lymphocytes % 17.7 Monocytes % 20.8 H Eosinophils % 4.4 Basophils % 0.6 Nucleated Red Blood Cells % 0.0 Neutrophils # (Manual) 4.7 Lymphocytes # 1.5 Monocytes # 1.8 H Eosinophils # 0.4 Basophils # 0.1 Nucleated Red Blood Cells # 0.0 Sodium Level 135 Potassium Level 4.0 Chloride Level 96 L Carbon Dioxide Level 32 H Anion Gap 11 Blood Urea Nitrogen 26 H Creatinine 3.54 H Glucose Level 124 Calcium Level 8.1 L Phosphorus Level 3.0 Medications Medications Current Medications Ondansetron HCl (Zofran Inj) 4 mg Q6H PRN IV NAUSEA AND/OR VOMITING; Start 10/23 at 19:54 Morphine Sulfate (morphine) 2 mg Q4H PRN IV SEVERE PAIN LEVEL 7-10; Start at 19:54 Aspirin (Aspirin) 81 mg DAILY PO Last administered on 10/28/16 08:27; Admin Dose 81 MG; Start 10/23/16 at 19:54 Hydralazine HCl (Apresoline) 10 mg Q6H PRN IV SBP>160; Start 10/23/16 at 19:54 Atorvastatin Calcium (Lipitor) 40 mg QHS PO Last administered on 10/27/16 20:38 ; Admin Dose 40 MG; Start 10/23/16 at 19:54 Epoetin Guy (Epogen (Esrd)) 10,000 units MoWeFr@17 SC Last administered on 10/26 18:54; Admin Dose 10,000 UNITS; Start 10/23/16 at 19:54 Miscellaneous Information 1 ea NOTE XX ; Start 10/23/16 at 19:54 Glucose (Glutose) 15 gm Q15M PRN PO DECREASED GLUCOSE; Start 10/23/16 at 19:54 Glucose (Glutose) 22.5 gm Q15M PRN PO DECREASED GLUCOSE; Start 10/23/16 at 19:54 Dextrose (D50w Syringe) 25 ml Q15M PRN IV DECREASED GLUCOSE; Start 10/23/16 at 19:54 Dextrose (D50w Syringe) 50 ml Q15M PRN IV DECREASED GLUCOSE; Start 10/23/16 at 19:54 Glucagon (Glucagen) 1 mg Q15M PRN IM DECREASED GLUCOSE; Start 10/23/16 at 19:54 Glucose (Glutose) 15 gm Q15M PRN BUCCAL DECREASED GLUCOSE; Start 10/23/16 at 19: 54 Diagnostic Test (Pha) (Accu-Chek) 1 ea 02 XX Last administered on 10/25/16 02: 43; Admin Dose 1 EA; Start 10/23/16 at 19:54 Clopidogrel Bisulfate (plaVIX) 75 mg DAILY PO Last administered on 10/28/16 08: 31; Admin Dose 75 MG; Start 10/23/16 at 19:54 Acetaminophen (Tylenol Tab) 650 mg Q4H PRN PO NON-CARDIAC PAIN LEVEL (1-3); Start 10/23/16 at 19:54 Metoprolol Tartrate (Lopressor) 50 mg BID PO Last administered on 10/28/16 08: 31; Admin Dose 50 MG; Start 10/23/16 at 19:54 Pantoprazole (Protonix Tab) 40 mg DAILY@06 PO Last administered on 10/28/16 06: 25; Admin Dose 40 MG; Start 10/23/16 at 19:54 Apixaban (Eliquis) 2.5 mg BID PO Last administered on 10/28/16 08:27; Admin Dose 2.5 MG; Start 10/23/16 at 19:54 Docusate Sodium (Colace) 100 mg BID PO Last administered on 10/28/16 08:27; Admin Dose 100 MG; Start 10/23/16 at 21:08 Senna (Senokot) 1 tab HS PO Last administered on 10/27/16 20:38; Admin Dose 1 TAB; Start 10/23/16 at 21:08 Bisacodyl (Dulcolax Supp) [address] CONSTIPATION; Start 10/23/16 at 21: 30 Lactulose (Enulose) 20 gm DAILY PRN PO CONSTIPATION Last administered on 09:05; Admin Dose 20 GM; Start 10/23/16 at 21:30 RIVERA GALVEZ MD Oct 28, 2016 08:38
[2016-10-28 09:47] LABS: HAAIG REFLEX REFLEX FILED
--- NOTE | 2016-10-28 11:05 | CONS ---
Date/Time of Note Date/Time of Note DATE: 10/28/16 TIME: 11:04 Consult Date/Type/Reason Admit Date/Time Oct 23, 2016 at 19:25 Type of Consultation: Nephrology Subjective Motivated, doing well Objective pulm-cta sba ambulation Vital Signs Date Time Temp Pulse Resp B/P Pulse Ox O2 Delivery O2 Flow Rate FiO2 10/28/16 08:00 98.0 71 18 156/67 97 10/28/16 04:19 21 Intake and Output 10/27/16 10/27/16 10/28/16 15:00 23:00 07:00 Intake Total 800 ml 900 ml Output Total 2500 ml Balance 800 ml -1600 ml Results/Medications Result Diagram: 10/28/1662610/28/16626 Results 24 hrs Laboratory Tests Test 10/27/16 12:20 10/27/16 20:33 10/28/16 06:27 10/28/16 06:28 Bedside Glucose 198 179 White Blood Count 8.5 Red Blood Count 2.61 L Hemoglobin 9.0 L Hematocrit 28.8 L Mean Corpuscular Volume 110.3 H Mean Corpuscular Hemoglobin 34.5 H Mean Corpuscular Hemoglobin Concent 31.3 L Red Cell Distribution Width 18.2 H Platelet Count 308 Mean Platelet Volume 9.9 Neutrophils % 55.1 Lymphocytes % 17.7 Monocytes % 20.8 H Eosinophils % 4.4 Basophils % 0.6 Nucleated Red Blood Cells % 0.0 Neutrophils # (Manual) 4.7 Lymphocytes # 1.5 Monocytes # 1.8 H Eosinophils # 0.4 Basophils # 0.1 Nucleated Red Blood Cells # 0.0 Sodium Level 135 Potassium Level 4.0 Chloride Level 96 L Carbon Dioxide Level 32 H Anion Gap 11 Blood Urea Nitrogen 26 H Creatinine 3.54 H Glucose Level 124 Calcium Level 8.1 L Phosphorus Level 3.0 Hepatitis B Surface Antigen Pending Hepatitis B Core Total Antibody Pending Hepatitis C Antibody Pending Test 10/28/16 07:53 Bedside Glucose 128 Medications Current Medications Ondansetron HCl (Zofran Inj) 4 mg Q6H PRN IV NAUSEA AND/OR VOMITING; Start 10/23 at 19:54 Morphine Sulfate (morphine) 2 mg Q4H PRN IV SEVERE PAIN LEVEL 7-10; Start at 19:54 Aspirin (Aspirin) 81 mg DAILY PO Last administered on 10/28/16 08:27; Admin Dose 81 MG; Start 10/23/16 at 19:54 Hydralazine HCl (Apresoline) 10 mg Q6H PRN IV SBP>160; Start 10/23/16 at 19:54 Atorvastatin Calcium (Lipitor) 40 mg QHS PO Last administered on 10/27/16 20:38 ; Admin Dose 40 MG; Start 10/23/16 at 19:54 Epoetin Guy (Epogen (Esrd)) 10,000 units MoWeFr@17 SC Last administered on 10/26 18:54; Admin Dose 10,000 UNITS; Start 10/23/16 at 19:54 Miscellaneous Information 1 ea NOTE XX ; Start 10/23/16 at 19:54 Glucose (Glutose) 15 gm Q15M PRN PO DECREASED GLUCOSE; Start 10/23/16 at 19:54 Glucose (Glutose) 22.5 gm Q15M PRN PO DECREASED GLUCOSE; Start 10/23/16 at 19:54 Dextrose (D50w Syringe) 25 ml Q15M PRN IV DECREASED GLUCOSE; Start 10/23/16 at 19:54 Dextrose (D50w Syringe) 50 ml Q15M PRN IV DECREASED GLUCOSE; Start 10/23/16 at 19:54 Glucagon (Glucagen) 1 mg Q15M PRN IM DECREASED GLUCOSE; Start 10/23/16 at 19:54 Glucose (Glutose) 15 gm Q15M PRN BUCCAL DECREASED GLUCOSE; Start 10/23/16 at 19: 54 Diagnostic Test (Pha) (Accu-Chek) 1 ea 02 XX Last administered on 10/25/16 02: 43; Admin Dose 1 EA; Start 10/23/16 at 19:54 Clopidogrel Bisulfate (plaVIX) 75 mg DAILY PO Last administered on 10/28/16 08: 31; Admin Dose 75 MG; Start 10/23/16 at 19:54 Acetaminophen (Tylenol Tab) 650 mg Q4H PRN PO NON-CARDIAC PAIN LEVEL (1-3); Start 10/23/16 at 19:54 Metoprolol Tartrate (Lopressor) 50 mg BID PO Last administered on 10/28/16 08: 31; Admin Dose 50 MG; Start 10/23/16 at 19:54 Pantoprazole (Protonix Tab) 40 mg DAILY@06 PO Last administered on 10/28/16 06: 25; Admin Dose 40 MG; Start 10/23/16 at 19:54 Apixaban (Eliquis) 2.5 mg BID PO Last administered on 10/28/16 08:27; Admin Dose 2.5 MG; Start 10/23/16 at 19:54 Docusate Sodium (Colace) 100 mg BID PO Last administered on 10/28/16 08:27; Admin Dose 100 MG; Start 10/23/16 at 21:08 Senna (Senokot) 1 tab HS PO Last administered on 10/27/16 20:38; Admin Dose 1 TAB; Start 10/23/16 at 21:08 Bisacodyl (Dulcolax Supp) 10 mg DAILY PRN [place] CONSTIPATION; Start 10/23/16 at 21: 30 Lactulose (Enulose) 20 gm DAILY PRN PO CONSTIPATION Last administered on 09:05; Admin Dose 20 GM; Start 10/23/16 at 21:30 Assessment/Plan Additional Assessment/Plan Rehab- Cardiac debility secondary to acute on chronic heart failure, non ST elevation [place], status post cardiac catheterization and stent placement. Excellent progress. Anticipate dc this Wednesday status post acute respiratory failure-stable End-stage renal disease, on hemodialysis. Paroxysmal atrial fibrillation. Hypertension. Diabetes mellitus type 2. Anemia. NEVA ZHOU MD Oct 28, 2016 11:05
[2016-10-28 11:56] LABS: HEPATITIS B CORE ANTIBODY REACTIVE (NEGATIVE)
--- NOTE | 2016-10-28 14:56 | PN ---
DATE: 10/28/2016 SUBJECTIVE: The patient complains difficulty hearing in both ears, started recently. Denies any trauma. No recent air travel. No chest pain or shortness of breath. OBJECTIVE DATA: GENERAL: On physical exam patient is awake, alert, ambulating with physical therapy. VITAL SIGNS: Temperature 98.0, blood pressure 156/67. O2 saturation 97 percent. HEENT: Examination of the ears indicate bilateral cerumen which is soft and does not appear to be impacted. CHEST: Clinically clear. HEART: S1, S2. No definite gallops. EXTREMITIES: No edema. Homans negative. LABORATORY: WBC count 8.5, hematocrit 28.8, platelets 308,000. Glucose 124, 128, and 156 today. IMPRESSION: 1. Non ST-elevated myocardial infarction. Status post- percutaneous transluminal coronary angioplasty of the circumflex and the right coronary artery. 2. Paroxysmal atrial fibrillation, presently in normal sinus. 3. Acute respiratory failure status post pneumonia, resolved. 4. End-stage renal disease on hemodialysis. 5. Diabetes mellitus type 2, well-controlled. 6. Dyslipidemia. PLAN: Will continue rehab per Dr. Campa When discharged the patient to be restarted on Januvia and Lantus. The patient has been advised regarding the use of Debrox, and consider ENT evaluation as outpatient. Dictated By: Saeid Galeas MD /raad/khalif /Document#: [id number] MUNA
[2016-10-28] MEDS: EPOETIN 10000 UNITS/1 ML INJ (ESRD) SC SCH (17:12)
--- NOTE | 2016-10-28 20:01 | CONS ---
DATE OF ADMISSION: 10/23/2016 DATE OF CONSULTATION: 10/28/2016 TYPE OF CONSULTATION: Psychological. REFERRING PHYSICIAN: Otoniel Goodman MD REASON FOR CONSULTATION: This consultation requested by Dr. Katheryn Goodman in order to evaluate the cognitive and emotional function of this patient related to his present medical condition. HISTORY OF PRESENT ILLNESS: The patient is an 85-year-old male. He has a history of numerous medical problems. The patient was originally hospitalized 2 weeks ago for chest pain and shortness of breath. Patient then was released, but then came into the emergency room at [facility] and was noted to have acute congestive heart failure. Patient was finally cleared medically and then sent to the acute rehabilitation unit for acute multidisciplinary rehabilitation. The patient is motivated to get better. The patient does want to return home and return to his previous level of functioning. FAMILY/SOCIAL HISTORY: Patient lives with his in an apartment in [place]. Patient does want to return there. The patient says his apartment has an elevator. MEDICATION: Patient is currently not on any psychotropic medications. SUBSTANCE USE: Patient reports that he does not use any alcohol or other drugs. The patient reports that he does not smoke. MENTAL STATUS EXAMINATION: APPEARANCE: Patient was seen sitting up in his wheelchair. He is of average height and weight. The patient has philip hair and philip mustache and singletary. The patient is right-handed. BEHAVIOR: The patient was cooperative during the consultation. The patient did attempt to answer all questions presented to him by the interviewer. MOOD AND AFFECT: The patient's mood appears to be slightly depressed. Affect does appear to be just slightly anxious. PERCEPTION: The patient reports no hallucinations or delusions. The patient was alert to person, place, situation, and time. MEMORY AND COGNITION: Patient's memory and cognition appear to be basically intact. He did not have any difficulty recalling recent and remote events. The patient was able to name the hospital. The patient was able to say the month and the year. The patient was able to state who the travel registered nurse oncology is, the governor of the state, and the Mayor of the [facility]. Patient was able to spell world backwards. The patient was able to do five serial 7 subtractions from 100 without error. For his age, the patient's cognitive functioning appears to be quite good. Patient also reported that he just celebrated his 63 anniversary on October 24. INTELLIGENCE: Intelligence appears to fall in the average to above average range. INSIGHT: Good. JUDGMENT: Good. THOUGHT CONTENT: The patient is concerned about his present medical condition. The patient does want to return home and is fearful that he will not be able to function as he did prior to all his recent medical problems. DISCUSSION: The patient can likely benefit from some cognitive/behavioral psychotherapy while he is on the unit. The psychotherapy would focus on all his medical problems and his frustration and depression surrounding them. 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 Thank you very much, Dr. Katheryn Goodman, for referring this individual. Please do not hesitate to call if you have any additional questions. Dictated By: Yousif Peters, PHD /fnt/johann /Document#: [id number]
[2016-10-28 20:09] VITALS: BP 132/60; PULSE 78; RESP 17
[2016-10-28] MEDS: SENNA TAB PO SCH (21:09)
[2016-10-28] MEDS: ATORVASTATIN 40 MG TAB PO SCH (21:09)
[2016-10-29] VITALS (12 sets, daily range): BP systolic 117–150; BP diastolic 50–67; PULSE 67–88; RESP 16–20
[2016-10-29] MEDS: ALBUTEROL/IPRATROPIUM (NEB) 3 ML AMP HHN SCH ×6 (00:46→20:45)
[2016-10-29] MEDS: ACCU-CHEK XX SCH (02:00)
[2016-10-29] MEDS: PANTOPRAZOLE (EC) 40 MG TAB PO SCH (05:30)
[2016-10-29] MEDS: APIXABAN 5 MG TABLET PO SCH ×2 (08:45→21:39)
[2016-10-29] MEDS: DOCUSATE SODIUM 100 MG CAP PO SCH ×2 (08:45→21:38)
[2016-10-29] MEDS: INSULIN ASPART [NOVOLOG] 3 ML PEN SC SCH ×4 (08:45→21:53)
[2016-10-29] MEDS: ASPIRIN 81 MG TAB PO SCH (08:46)
[2016-10-29] MEDS: CLOPIDOGREL 75 MG TAB PO SCH (08:46)
[2016-10-29] MEDS: METOPROLOL 50 MG TAB PO SCH ×2 (08:46→21:43)
--- NOTE | 2016-10-29 11:50 | CONS ---
Date/Time of Note Date/Time of Note DATE: 10/29/16 TIME: 11:50 Consult Date/Type/Reason Admit Date/Time Oct 23, 2016 at 19:25 Type of Consultation: Nephrology Subjective Comfortable Objective pulm-cta s ambulation 200 feet Vital Signs Date Time Temp Pulse Resp B/P Pulse Ox O2 Delivery O2 Flow Rate FiO2 10/29/16 07:30 98.7 77 20 150/65 94 10/29/16 05:15 21 10/29/16 02:00 Room Air Intake and Output 10/28/16 10/28/16 10/29/16 15:00 23:00 07:00 Intake Total 800 ml 610 ml 350 ml Balance 800 ml 610 ml 350 ml Results/Medications Result Diagram: 10/28/1662610/28/16626 Results 24 hrs Laboratory Tests Test 10/28/16 12:12 10/28/16 17:10 10/28/16 17:18 10/28/16 21:11 Bedside Glucose 156 149 151 198 Test 10/29/16 02:09 10/29/16 08:16 Bedside Glucose 180 150 Medications Current Medications Ondansetron HCl (Zofran Inj) 4 mg Q6H PRN IV NAUSEA AND/OR VOMITING; Start 10/23 at 19:54 Morphine Sulfate (morphine) 2 mg Q4H PRN IV SEVERE PAIN LEVEL 7-10; Start at 19:54 Aspirin (Aspirin) 81 mg DAILY PO Last administered on 10/29/16 08:46; Admin Dose 81 MG; Start 10/23/16 at 19:54 Hydralazine HCl (Apresoline) 10 mg Q6H PRN IV SBP>160; Start 10/23/16 at 19:54 Atorvastatin Calcium (Lipitor) 40 mg QHS PO Last administered on 10/28/16 21:09 ; Admin Dose 40 MG; Start 10/23/16 at 19:54 Epoetin Guy (Epogen (Esrd)) 10,000 units MoWeFr@17 SC Last administered on 10/28 17:12; Admin Dose 10,000 UNITS; Start 10/23/16 at 19:54 Miscellaneous Information 1 ea NOTE XX ; Start 10/23/16 at 19:54 Glucose (Glutose) 15 gm Q15M PRN PO DECREASED GLUCOSE; Start 10/23/16 at 19:54 Glucose (Glutose) 22.5 gm Q15M PRN PO DECREASED GLUCOSE; Start 10/23/16 at 19:54 Dextrose (D50w Syringe) 25 ml Q15M PRN IV DECREASED GLUCOSE; Start 10/23/16 at 19:54 Dextrose (D50w Syringe) 50 ml Q15M PRN IV DECREASED GLUCOSE; Start 10/23/16 at 19:54 Glucagon (Glucagen) 1 mg Q15M PRN IM DECREASED GLUCOSE; Start 10/23/16 at 19:54 Glucose (Glutose) 15 gm Q15M PRN BUCCAL DECREASED GLUCOSE; Start 10/23/16 at 19: 54 Diagnostic Test (Pha) (Accu-Chek) 1 ea 02 XX Last administered on 10/25/16 02: 43; Admin Dose 1 EA; Start 10/23/16 at 19:54 Clopidogrel Bisulfate (plaVIX) 75 mg DAILY PO Last administered on 10/29/16 08: 46; Admin Dose 75 MG; Start 10/23/16 at 19:54 Acetaminophen (Tylenol Tab) 650 mg Q4H PRN PO NON-CARDIAC PAIN LEVEL (1-3); Start 10/23/16 at 19:54 Metoprolol Tartrate (Lopressor) 50 mg BID PO Last administered on 10/29/16 08: 46; Admin Dose 50 MG; Start 10/23/16 at 19:54 Pantoprazole (Protonix Tab) 40 mg DAILY@06 PO Last administered on 10/29/16 05: 30; Admin Dose 40 MG; Start 10/23/16 at 19:54 Apixaban (Eliquis) 2.5 mg BID PO Last administered on 10/29/16 08:45; Admin Dose 2.5 MG; Start 10/23/16 at 19:54 Docusate Sodium (Colace) 100 mg BID PO Last administered on 10/29/16 08:45; Admin Dose 100 MG; Start 10/23/16 at 21:08 Senna (Senokot) 1 tab HS PO Last administered on 10/28/16 21:09; Admin Dose 1 TAB; Start 10/23/16 at 21:08 Bisacodyl (Dulcolax Supp) 10 mg DAILY PRN [place] CONSTIPATION; Start 10/23/16 at 21: 30 Lactulose (Enulose) 20 gm DAILY PRN PO CONSTIPATION Last administered on t 09:05; Admin Dose 20 GM; Start 10/23/16 at 21:30 Assessment/Plan Additional Assessment/Plan Rehab- Cardiac debility secondary to acute on chronic heart failure, non ST elevation [place], status post cardiac catheterization and stent placement. Excellent progress. Anticipate dc tomorrow status post acute respiratory failure-stable End-stage renal disease, on hemodialysis. Paroxysmal atrial fibrillation. Hypertension. Diabetes mellitus type 2. Anemia. NEVA HZOU MD Oct 29, 2016 11:50
--- NOTE | 2016-10-29 12:38 | CONS ---
Date/Time of Note Date/Time of Note DATE: 10/29/16 TIME: 12:35 Assessment/Plan Assessment/Plan Additional Assessment/Plan 1. CKD, to be dialyzed todaya next HD as outpatient on Sat. 2. CHF resolved 3. S/P OH without angina 4. PAF now in sinus rhythm 5. Urinary frequency and nocturia, will ck u/a and culture and post void residual 6. Await case management eval regarding facility for op hd Consultation Date/Type/Reason Admit Date/Time Oct 23, 2016 at 19:25 Type of Consultation: Nephrology Detailed Summary Respiratory: No cough, No shortness of breath Cardiovascular: No chest pain Gastrointestinal: no complaints Genitourinary: No dysuria Musculoskeletal: other (modest urinary frequency and nocturia) Exam/Review of Systems Vital Signs Vitals Vital Signs Date Time Temp Pulse Resp B/P Pulse Ox O2 Delivery O2 Flow Rate FiO2 10/29/16 07:30 98.7 77 20 150/65 94 10/29/16 05:15 21 10/29/16 02:00 Room Air Intake and Output 10/28/16 10/28/16 10/29/16 15:00 23:00 07:00 Intake Total 800 ml 610 ml 350 ml Balance 800 ml 610 ml 350 ml Exam Neck: No jvd Respiratory: clear to auscultation Cardiovascular: regular rate and rhythm Gastrointestinal: soft Extremities: No calf tenderness, No edema Results Result Diagram: 10/28/16 0627 10/28/16 0627 Results 24 hrs Laboratory Tests Test 10/28/16 17:10 10/28/16 17:18 10/28/16 21:11 10/29/16 02:09 Bedside Glucose 149 151 198 180 Test 10/29/16 08:16 10/29/16 12:17 Bedside Glucose 150 229 H Medications Medications Current Medications Ondansetron HCl (Zofran Inj) 4 mg Q6H PRN IV NAUSEA AND/OR VOMITING; Start 10/23 at 19:54 Morphine Sulfate (morphine) 2 mg Q4H PRN IV SEVERE PAIN LEVEL 7-10; Start at 19:54 Aspirin (Aspirin) 81 mg DAILY PO Last administered on 10/29/16t 08:46; Admin Dose 81 MG; Start 10/23/16 at 19:54 Hydralazine HCl (Apresoline) 10 mg Q6H PRN IV SBP>160; Start 10/23/16 at 19:54 Atorvastatin Calcium (Lipitor) 40 mg QHS PO Last administered on 10/28/16 21:09 ; Admin Dose 40 MG; Start 10/23/16 at 19:54 Epoetin Guy (Epogen (Esrd)) 10,000 units MoWeFr@17 SC Last administered on 10/28 17:12; Admin Dose 10,000 UNITS; Start 10/23/16 at 19:54 Miscellaneous Information 1 ea NOTE XX ; Start 10/23/16 at 19:54 Glucose (Glutose) 15 gm Q15M PRN PO DECREASED GLUCOSE; Start 10/23/16 at 19:54 Glucose (Glutose) 22.5 gm Q15M PRN PO DECREASED GLUCOSE; Start 10/23/16 at 19:54 Dextrose (D50w Syringe) 25 ml Q15M PRN IV DECREASED GLUCOSE; Start 10/23/16 at 19:54 Dextrose (D50w Syringe) 50 ml Q15M PRN IV DECREASED GLUCOSE; Start 10/23/16 at 19:54 Glucagon (Glucagen) 1 mg Q15M PRN IM DECREASED GLUCOSE; Start 10/23/16 at 19:54 Glucose (Glutose) 15 gm Q15M PRN BUCCAL DECREASED GLUCOSE; Start 10/23/16 at 19: 54 Diagnostic Test (Pha) (Accu-Chek) 1 ea 02 XX Last administered on 10/25/16 02: 43; Admin Dose 1 EA; Start 10/23/16 at 19:54 Clopidogrel Bisulfate (plaVIX) 75 mg DAILY PO Last administered on 10/29/16 08: 46; Admin Dose 75 MG; Start 10/23/16 at 19:54 Acetaminophen (Tylenol Tab) 650 mg Q4H PRN PO NON-CARDIAC PAIN LEVEL (1-3); Start 10/23/16 at 19:54 Metoprolol Tartrate (Lopressor) 50 mg BID PO Last administered on 10/29/16 08: 46; Admin Dose 50 MG; Start 10/23/16 at 19:54 Pantoprazole (Protonix Tab) 40 mg DAILY@06 PO Last administered on 10/29/16 05: 30; Admin Dose 40 MG; Start 10/23/16 at 19:54 Apixaban (Eliquis) 2.5 mg BID PO Last administered on 10/29/16 08:45; Admin Dose 2.5 MG; Start 10/23/16 at 19:54 Docusate Sodium (Colace) 100 mg BID PO Last administered on 10/29/16 08:45; Admin Dose 100 MG; Start 10/23/16 at 21:08 Senna (Senokot) 1 tab HS PO Last administered on 10/28/16 21:09; Admin Dose 1 TAB; Start 10/23/16 at 21:08 Bisacodyl (Dulcolax Supp) 10 mg DAILY PRN [place] CONSTIPATION; Start 10/23/16 at 21: 30 Lactulose (Enulose) 20 gm DAILY PRN PO CONSTIPATION Last administered on 09:05; Admin Dose 20 GM; Start 10/23/16 at 21:30 RIVERA GALVEZ MD Oct 29, 2016 12:38
--- NOTE | 2016-10-29 16:06 | PN ---
DATE: 10/29/2016 SUBJECTIVE DATA: Patient has no major complaints. Presently comfortable. OBJECTIVE DATA: VITAL SIGNS: Temperature 98.7, blood pressure 150/65, respiratory 20 per minute. HEENT: Head normocephalic. No pallor, cyanosis, or icterus. JVP is not increased. CHEST: Clinically clear. HEART: S1, S2. No rubs or gallops. EXTREMITIES: No edema. Homans negative. IMPRESSION: 1. Status post [id number] myocardial infarction. 2. Status post percutaneous transluminal coronary angioplasty of the circumflex and the right coronary artery, on anticoagulation with Eliquis, Plavix and aspirin. 3. Paroxysmal atrial fibrillation, presently in normal sinus rhythm. 4. Status post acute respiratory failure status post pneumonia, resolved. 5. End-stage renal disease on hemodialysis. 6. Diabetes mellitus type 2, well controlled. 7. Dyslipidemia. PLAN: Patient due to have hemodialysis today. Patient apparently has been taking Tradjenta and Lantus at home. Discussed with patient's daughter, Mary. Would opt to go on a low dose of Lantus and then adjust the dose accordingly and patient will be continued on Lipitor, Eliquis, Plavix and aspirin and hemodialysis to be continued to be arranged for the coming Wednesday with his PMD. Home health to be arranged as well. Dictated By: Saeid Galeas MD /raad/rylan Sharp#: [id number]/Document#: [id number]
[2016-10-29 17:41] LABS: ADD UMIC YES; UR ASCORBIC ACID 20 mg/dL (NEGATIVE); UR BACTERIA FEW /HPF (NONE SEEN); UR BILIRUBIN (Dip) NEGATIVE (NEGATIVE); UR BLOOD (Dip) NEGATIVE (NEGATIVE); UR CLARITY CLEAR (CLEAR); UR COLOR YELLOW (YELLOW); UR GLUCOSE (Dip) 2+ mg/dL (NEGATIVE); UR KETONES (Dip) NEGATIVE (NEGATIVE); UR LEUKOCYTE ESTERASE (Dip) NEGATIVE Leu/ul (NEGATIVE); UR NITRITE (Dip) NEGATIVE (NEGATIVE); UR RBC 1 /HPF (0-5); UR SPECIFIC GRAVITY (Dip) 1.008 (1.003-1.030); UR TOTAL PROTEIN (Dip) 3+ mg/dl (NEGATIVE); UR UROBILINOGEN (Dip) NEGATIVE (NEGATIVE)
[2016-10-29] MEDS: SENNA TAB PO SCH (21:38)
[2016-10-29] MEDS: ATORVASTATIN 40 MG TAB PO SCH (21:39)
[2016-10-30] MEDS: ALBUTEROL/IPRATROPIUM (NEB) 3 ML AMP HHN SCH ×3 (01:23→08:02)
[2016-10-30 02:00] VITALS: BP 137/67; RESP 18
[2016-10-30] MEDS: ACCU-CHEK XX SCH (02:00)
[2016-10-30] MEDS: PANTOPRAZOLE (EC) 40 MG TAB PO SCH (06:41)
[2016-10-30 07:30] VITALS: BP 159/68; RESP 18
[2016-10-30 07:35] LABS: ABNORMAL IP MESSAGE 1; BASOPHILS % 0.3 % (0.0-2.0); EOSINOPHILS # 0.4 10^3/ul (0.0-0.5); EOSINOPHILS % 4.4 % (0.0-7.0); HEMATOCRIT 27.8 % (42.0-52.0); HEMOGLOBIN 8.6 g/dl (14.0-18.0); LYMPHOCYTES # 1.8 10^3/ul (0.8-2.9); LYMPHOCYTES % 18.1 % (15.0-51.0); MEAN CORPUSCULAR HEMOGLOBIN 34.3 pg (29.0-33.0); MEAN CORPUSCULAR HGB CONC 30.9 g/dl (32.0-37.0); MEAN CORPUSCULAR VOLUME 110.8 fl (82.0-101.0); MEAN PLATELET VOLUME 10.2 fl (7.4-10.4); MONOCYTE # 1.5 10^3/ul (0.3-0.9); MONOCYTES % 15.7 % (0.0-11.0); NEUTROPHILS % 60.2 % (39.0-77.0); PLATELET COUNT 280 10^3/UL (140-415); POSITIVE DIFF @See below; RED BLOOD COUNT 2.51 10^6/ul (4.70-6.10); WHITE BLOOD COUNT 9.7 10^3/ul (4.8-10.8)
[2016-10-30] MEDS: CLOPIDOGREL 75 MG TAB PO SCH (08:12)
[2016-10-30] MEDS: DOCUSATE SODIUM 100 MG CAP PO SCH (08:14)
[2016-10-30] MEDS: APIXABAN 5 MG TABLET PO SCH (08:14)
[2016-10-30] MEDS: ASPIRIN 81 MG TAB PO SCH (08:14)
[2016-10-30] MEDS: METOPROLOL 50 MG TAB PO SCH (08:14)
[2016-10-30] MEDS: INSULIN ASPART [NOVOLOG] 3 ML PEN SC SCH (08:18)
[2016-10-30 08:22] LABS: CALCIUM 8.3 mg/dl (8.4-10.2); CREATININE 3.37 mg/dl (0.61-1.24); POTASSIUM 4.7 mmol/L (3.5-5.1)
--- NOTE | 2016-10-30 08:29 | CONS ---
Date/Time of Note Date/Time of Note DATE: 10/30/16 TIME: 08:25 Assessment/Plan Assessment/Plan Additional Assessment/Plan 1. ESRD sec to DM, stable on HD without rec chf or angina, next hd is tomm 2. DM, sugars are acceptable 3. Rev with Case management need for hd tomm and facility he will have OP dialysis 4. Can be dc today per rehab and IM 5. Will need cardiology follow up as well Consultation Date/Type/Reason Admit Date/Time Oct 23, 2016 at 19:25 Type of Consultation: Nephrology Detailed Summary Respiratory: No shortness of breath Cardiovascular: No chest pain Gastrointestinal: no complaints Genitourinary: no complaints Exam/Review of Systems Vital Signs Vitals Vital Signs Date Time Temp Pulse Resp B/P Pulse Ox O2 Delivery O2 Flow Rate FiO2 10/30/16 08:04 68 20 98 21 10/30/16 07:30 98.0 159/68 10/29/16 02:00 Room Air Intake and Output 10/29/16 10/29/16 10/30/16 15:00 23:00 07:00 Intake Total 760 ml 950 ml Output Total 3000 ml 75 ml Balance -2240 ml 875 ml Exam Neck: No jvd Cardiovascular: regular rate and rhythm Gastrointestinal: soft Extremities: No edema (and no calf tend) Results Result Diagram: 10/30/16 0629 10/30/16 0629 Results 24 hrs Laboratory Tests Test 10/29/16 12:17 10/29/16 16:30 10/29/16 17:31 10/29/16 21:37 Bedside Glucose 229 H 179 248 H Urine Color YELLOW Urine Clarity CLEAR Urine pH 6.0 Urine Specific [place] 1.008 Urine Ketones NEGATIVE Urine Nitrite NEGATIVE Urine Bilirubin NEGATIVE Urine Urobilinogen NEGATIVE Urine Leukocyte Esterase NEGATIVE Urine Microscopic RBC 1 Urine Microscopic WBC 1 Urine Bacteria FEW A Urine Hemoglobin NEGATIVE Urine Glucose 2+ H Urine Total Protein 3+ H Test 10/30/16 02:24 10/30/16 06:29 10/30/16 08:06 Bedside Glucose 216 163 White Blood Count 9.7 Red Blood Count 2.51 L Hemoglobin 8.6 L Hematocrit 27.8 L Mean Corpuscular Volume 110.8 H Mean Corpuscular Hemoglobin 34.3 H Mean Corpuscular Hemoglobin Concent 30.9 L Red Cell Distribution Width 18.0 H Platelet Count 280 Mean Platelet Volume 10.2 Neutrophils % 60.2 Lymphocytes % 18.1 Monocytes % 15.7 H Eosinophils % 4.4 Basophils % 0.3 Nucleated Red Blood Cells % 0.0 Neutrophils # (Manual) 5.9 Lymphocytes # 1.8 Monocytes # 1.5 H Eosinophils # 0.4 Basophils # 0.0 Nucleated Red Blood Cells # 0.0 Sodium Level 137 Potassium Level 4.7 Chloride Level 100 Carbon Dioxide Level 31 Anion Gap 11 Blood Urea Nitrogen 36 H Creatinine 3.37 H Glucose Level 146 Calcium Level 8.3 L Medications Medications Current Medications Ondansetron HCl (Zofran Inj) 4 mg Q6H PRN IV NAUSEA AND/OR VOMITING; Start 10/23 at 19:54 Morphine Sulfate (morphine) 2 mg Q4H PRN IV SEVERE PAIN LEVEL 7-10; Start at 19:54 Aspirin (Aspirin) 81 mg DAILY PO Last administered on 10/30/16 08:14; Admin Dose 81 MG; Start 10/23/16 at 19:54 Hydralazine HCl (Apresoline) 10 mg Q6H PRN IV SBP>160; Start 10/23/16 at 19:54 Atorvastatin Calcium (Lipitor) 40 mg QHS PO Last administered on 10/29/16 21:39 ; Admin Dose 40 MG; Start 10/23/16 at 19:54 Epoetin Guy (Epogen (Esrd)) 10,000 units MoWeFr@17 SC Last administered on 10/28 17:12; Admin Dose 10,000 UNITS; Start 10/23/16 at 19:54 Miscellaneous Information 1 ea NOTE XX ; Start 10/23/16 at 19:54 Glucose (Glutose) 15 gm Q15M PRN PO DECREASED GLUCOSE; Start 10/23/16 at 19:54 Glucose (Glutose) 22.5 gm Q15M PRN PO DECREASED GLUCOSE; Start 10/23/16 at 19:54 Dextrose (D50w Syringe) 25 ml Q15M PRN IV DECREASED GLUCOSE; Start 10/23/16 at 19:54 Dextrose (D50w Syringe) 50 ml Q15M PRN IV DECREASED GLUCOSE; Start 10/23/16 at 19:54 Glucagon (Glucagen) 1 mg Q15M PRN IM DECREASED GLUCOSE; Start 10/23/16 at 19:54 Glucose (Glutose) 15 gm Q15M PRN BUCCAL DECREASED GLUCOSE; Start 10/23/16 at 19: 54 Diagnostic Test (Pha) (Accu-Chek) 1 ea 02 XX Last administered on 10/25/16 02: 43; Admin Dose 1 EA; Start 10/23/16 at 19:54 Clopidogrel Bisulfate (plaVIX) 75 mg DAILY PO Last administered on 10/30/16 08: 12; Admin Dose 75 MG; Start 10/23/16 at 19:54 Acetaminophen (Tylenol Tab) 650 mg Q4H PRN PO NON-CARDIAC PAIN LEVEL (1-3); Start 10/23/16 at 19:54 Metoprolol Tartrate (Lopressor) 50 mg BID PO Last administered on 10/30/16 08: 14; Admin Dose 50 MG; Start 10/23/16 at 19:54 Pantoprazole (Protonix Tab) 40 mg DAILY@06 PO Last administered on 10/30/16 06: 41; Admin Dose 40 MG; Start 10/23/16 at 19:54 Apixaban (Eliquis) 2.5 mg BID PO Last administered on 10/30/16 08:14; Admin Dose 2.5 MG; Start 10/23/16 at 19:54 Docusate Sodium (Colace) 100 mg BID PO Last administered on 10/30/16 08:14; Admin Dose 100 MG; Start 10/23/16 at 21:08 Senna (Senokot) 1 tab HS PO Last administered on 10/29/16 21:38; Admin Dose 1 TAB; Start 10/23/16 at 21:08 Bisacodyl (Dulcolax Supp) 10 mg DAILY PRN [place] CONSTIPATION; Start 10/23/16 at 21: 30 Lactulose (Enulose) 20 gm DAILY PRN PO CONSTIPATION Last administered on 09:05; Admin Dose 20 GM; Start 10/23/16 at 21:30 RIVERA GALVEZ MD Oct 30, 2016 08:29
--- NOTE | 2016-10-30 10:45 | DS ---
Date/Time of Note Date/Time of Note DATE: 10/30/16 TIME: 10:40 Discharge Summary Admission/Discharge Info Admit Date/Time Oct 23, 2016 at 19:25 Discharge Date/Time Discharge Diagnosis 1. Cardiac debility secondary to acute on chronic heart failure, non ST elevation [place], status post cardiac catheterization and stent placement. 2.status post acute respiratory failure. 3. End-stage renal disease, on hemodialysis. 4. Paroxysmal atrial fibrillation. 5. Hypertension. 6. Diabetes mellitus type 2. 7. Improvements in self-care and mobility. Patient Condition: Good Hospital Course Patient was admitted for comprehensive interdisciplinary acute rehabilitation. Patient made steady functional gains and improved from a mod/min level to a Modified Independent level for self care and mobility, including ambulating over 150 feet. Patient is being discharged home with recommendations for home health PT and OT follow up. DME recommendations: FWW; BSC; Shower Chair Patient will follow up with PMD upon DC. Home Meds Reported Medications Zolpidem Tartrate* (Ambien*) 5 Mg Tablet, 5 MG PO QHS Y for INSOMNIA, #30 TAB 10/19/16 Aspirin* (Aspirin* EC) 81 Mg Tablet.dr, 81 MG PO QAM, TAB 10/19/16 Bisacodyl* (Dulcolax*) 5 Mg Tablet.dr, 5 MG PO QAM, TAB 10/19/16 Acetaminophen* (Tylenol*) 325 Mg Tablet, 650 MG PO Q6H Y for PAIN LEVEL 1-5, TAB 10/19/16 Ondansetron Hcl* (Zofran*) 4 Mg Tab, 4 MG PO Q6H Y for NAUSEA AND OR VOMITING, TAB 10/19/16 Polyethylene Glycol* (Miralax*) 17 Gm Powd.pack, 17 GM PO DAILY Y for NEEDED , #30 PACKET 10/19/16 Linagliptin (TRADJENTA) 5 Mg Tablet, 5 MG PO Q9AM, TAB 10/19/16 Sevelamer Carbonate* (Renvela*) 800 Mg Tablet, 1600 MG PO WITH MEALS, TAB 10/19/16 Multivit/Ca Carb/B Cmplx/Fa* (Hilary-Abraham*) 1 Tab Tab, 1 TAB PO QAM, TAB 10/19/16 Vit C/Abraham Ac/Lut/Copper/Znox (PRESERVISION LUTEIN SOFTGEL) 1 Each Capsule, 1 EACH PO QAM, CAP 10/19/16 Pantoprazole Sodium (Protonix) 40 Mg Granpkt.dr, 40 MG PO QAM 10/19/16 Insulin Glargine* (Lantus*) 100 Unit/Ml Soln, 3 UNIT SC QHS, #1 VIAL 10/19/16 Hydralazine Hcl* (Hydralazine Hcl*) 10 Mg Tablet, 10 MG PO QID, #120 TAB HOLD IF SBP<110 10/19/16 Verapamil Hcl* (Isoptin*) 80 Mg Tab, 80 MG PO TID, TAB HOLD IF SBP<120 10/19/16 [place]-3 Fatty Acids/Fish Oil (Fish Oil 1,000 mg Capsule) 1 Each Capsule, 1 EACH PO TID, CAP 10/19/16 Finasteride* (Finasteride*) 5 Mg Tablet, 5 MG PO Q9AM, TAB 10/19/16 Mometasone-Formoterol (Dulera) 100-5 Mcg - 13 Gm Hfa.aer.ad, 2 PUFFS INHALATION BID, #1 INHALER 10/19/16 Doxazosin Mesylate* (Doxazosin Mesylate*) 4 Mg Tablet, 4 MG PO HS, TAB HOLD IF SBP<110 10/19/16 Metoprolol Tartrate* (Lopressor*) 25 Mg Tab, 12.5 MG PO BID, #60 TAB HOLD IF SBP<110 10/19/16 Primary Care Provider Saeid Galeas MD Pending Labs Laboratory Tests Test 10/29/16 12:17 10/29/16 16:30 10/29/16 17:31 10/29/16 21:37 Bedside Glucose 229mg/dL (70-220) 179mg/dL (70-220) 248mg/dL (70-220) Urine Color YELLOW (YELLOW) Urine Clarity CLEAR (CLEAR) Urine pH 6.0 (5.0-9.0) Urine Specific [place] 1.008 (1.003-1.030) Urine Ketones NEGATIVEmg/dL (NEGATIVE) Urine Nitrite NEGATIVEmg/dL (NEGATIVE) Urine Bilirubin NEGATIVEmg/dL (NEGATIVE) Urine Urobilinogen NEGATIVEmg/dL (NEGATIVE) Urine Leukocyte Esterase NEGATIVELeu/ul (NEGATIVE) Urine Microscopic RBC 1/HPF (0-5) Urine Microscopic WBC 1/HPF (0-5) Urine Bacteria FEW/HPF (NONE SEEN) Urine Hemoglobin NEGATIVEmg/dL (NEGATIVE) Urine Glucose 2+mg/dL (NEGATIVE) Urine Total Protein 3+mg/dl (NEGATIVE) Test 10/30/16 02:24 10/30/16 06:29 10/30/16 08:06 Bedside Glucose 216mg/dL (70-220) 163mg/dL (70-220) White Blood Count 9.710^3/ul (4.8-10.8) Red Blood Count 2.5110^6/ul (4.70-6.10) Hemoglobin 8.6g/dl (14.0-18.0) Hematocrit 27.8% (42.0-52.0) Mean Corpuscular Volume 110.8fl (82.0-101.0) Mean Corpuscular Hemoglobin 34.3pg (29.0-33.0) Mean Corpuscular Hemoglobin Concent 30.9g/dl (32.0-37.0) Red Cell Distribution Width 18.0% (11.5-14.5) Platelet Count 53950^3/UL (140-415) Mean Platelet Volume 10.2fl (7.4-10.4) Neutrophils % 60.2% (39.0-77.0) Lymphocytes % 18.1% (15.0-51.0) Monocytes % 15.7% (0.0-11.0) Eosinophils % 4.4% (0.0-7.0) Basophils % 0.3% (0.0-2.0) Nucleated Red Blood Cells % 0.0/100WBC (0.0-0.0) Neutrophils # (Manual) 5.910^3/ul (1.7-7.5) Lymphocytes # 1.810^3/ul (0.8-2.9) Monocytes # 1.510^3/ul (0.3-0.9) Eosinophils # 0.410^3/ul (0.0-0.5) Basophils # 0.010^3/ul (0.0-0.1) Nucleated Red Blood Cells # 0.010^3/ul (0.0-0.0) Sodium Level 137mmol/L (135-144) Potassium Level 4.7mmol/L (3.5-5.1) Chloride Level 100mmol/L (97-110) Carbon Dioxide Level 31mmol/L (21-31) Anion Gap 11 (8-16) Blood Urea Nitrogen 36mg/dl (7-20) Creatinine 3.37mg/dl (0.61-1.24) Glucose Level 146mg/dl (70-220) Calcium Level 8.3mg/dl (8.4-10.2) Microbiology Date/Time Source Procedure Growth Status 10/29/16 16:30 Clean Catch Urine Urine Culture - Preliminary NO GROWTH AFTER 24 HOURS Resulted NEVA ZHOU MD Oct 30, 2016 10:45
--- NOTE | 2016-10-30 22:28 | PN ---
DATE: 10/30/2016 SUBJECTIVE: Patient is awake, alert. Denies any chest pain or shortness of breath, p.o. intake is good. OBJECTIVE DATA: VITAL SIGNS: Temperature 98.0, blood pressure 115/68, O2 sat 98 percent on room air. HEENT: Head normocephalic. Mild pallor. No cyanosis. CHEST: Clinically clear. HEART: S1, S2. No gallops. EXTREMITIES: No edema. LABORATORY AND DIAGNOSTIC DATA: Blood glucose levels 146 and 163 today. IMPRESSION: 1. Status post non ST elevation myocardial infarction. 2. Status post percutaneous transluminal coronary angioplasty of the circumflex and right coronary artery, on triple anticoagulation with Eliquis, Plavix and aspirin. 3. Paroxysmal atrial fibrillation, presently normal sinus rhythm. 4. Status post respiratory failure, status post pneumonia, resolved. 5. End-stage renal disease on hemodialysis. 6. Diabetes mellitus type 2, well controlled. 7. Dyslipidemia. PLAN: Patient is going to be discharged today. Patient has been advised to follow up with his PMD. Continue hemodialysis. Continue statins and continue Tradjenta as before, and low-dose Lantus has been discussed with the patient's daughter. Follow blood glucose levels and renal function with PMD. Home health will be arranged as well. Dictated By: Saeid Galeas MD /raad/mirna /Document#: [id number]
== END 2016-10-30 11:00 | disposition home health service (06) | DRG 291 ==
LOC: VRC 19:25
PROVIDERS: ADMIT Physical Medicine & Rehabilitation; ATTEND Internal Medicine
PROC: F07Z5ZZ Bed Mobility Treatment (ICD-10-PCS; principal; 2016-10-23)
PROC: F08Z2ZZ Grooming/Personal Hygiene Treatment (ICD-10-PCS; 2016-10-23)
PROC: 5A1D00Z (ICD-10-PCS; 2016-10-28)
DX: I13.2 Hypertensive heart and chronic kidney disease with heart failure and with stage 5 chronic kidney disease, or end stage renal disease (principal); I50.33 Acute on chronic diastolic (congestive) heart failure; J96.00 Acute respiratory failure, unspecified whether with hypoxia or hypercapnia; N18.6 End stage renal disease; E11.22 Type 2 diabetes mellitus with diabetic chronic kidney disease; Z99.2 Dependence on renal dialysis; Z79.4 Long term (current) use of insulin; I48.91 Unspecified atrial fibrillation; D64.9 Anemia, unspecified; Z79.82 Long term (current) use of aspirin; I25.2 Old myocardial infarction; F32.89 Other specified depressive episodes
CPT/HCPCS: 80048; 80053; 81001; 82962; 84100; 85025; 86704; 86709; 86803; 87081; 87086; 87340; 90935; 94640; 97110; 97112; 97116; 97150; 97162; 97165; 97530; 97535; J1815; J2916; Q4081

== ENCOUNTER 2017-01-29 04:08 | Inpatient (IN) | payer MEDICARE, OTHER ==
[~2017-01-29] VITALS: Ht 175.3 cm; Wt 55.7 kg
--- NOTE | 2017-01-29 04:35 | ERD ---
ER Documentation Chief Complaint Chief Complaint c/o generalized weakness since 01/28/17 during HD. Hgb 6.9. HPI The patient is 86-year-old male, presenting to the ER because of generalized weakness, denies for 1 day with low hemoglobin 6.9. He has history of positive Hemoccult about a week ago. He denies neck pain, chest pain, dyspnea, abdominal pain, vomiting, dysuria, diarrhea. He does not smoke nor drink Medical history: Hypertension, history of CHF, CAD, chronic kidney disease hemodialysis on Wednesday and Wednesday, proximal atrial fibrillation, diabetes mellitus Past surgical history: Stent PCI, right chest hemodialysis catheter ROS All systems reviewed and are negative except as per history of present illness. Medications Home Meds Reported Medications Zolpidem Tartrate* (Ambien*) 5 Mg Tablet, 5 MG PO QHS Y for INSOMNIA, #30 TAB 10/19/16 Aspirin* (Aspirin* EC) 81 Mg Tablet.dr, 81 MG PO QAM, TAB 10/19/16 Bisacodyl* (Dulcolax*) 5 Mg Tablet.dr, 5 MG PO QAM, TAB 10/19/16 Acetaminophen* (Tylenol*) 325 Mg Tablet, 650 MG PO Q6H Y for PAIN LEVEL 1-5, TAB 10/19/16 Ondansetron Hcl* (Zofran*) 4 Mg Tab, 4 MG PO Q6H Y for NAUSEA AND OR VOMITING, TAB 10/19/16 Polyethylene Glycol* (Miralax*) 17 Gm Powd.pack, 17 GM PO DAILY Y for NEEDED , #30 PACKET 10/19/16 Linagliptin (TRADJENTA) 5 Mg Tablet, 5 MG PO Q9AM, TAB 10/19/16 Sevelamer Carbonate* (Renvela*) 800 Mg Tablet, 1600 MG PO WITH MEALS, TAB 10/19/16 Multivit/Ca Carb/B Cmplx/Fa* (Hilary-Abraham*) 1 Tab Tab, 1 TAB PO QAM, TAB 10/19/16 Vit C/Abraham Ac/Lut/Copper/Znox (PRESERVISION LUTEIN SOFTGEL) 1 Each Capsule, 1 EACH PO QAM, CAP 10/19/16 Pantoprazole Sodium (Protonix) 40 Mg Granpkt.dr, 40 MG PO QAM 10/19/16 Insulin Glargine* (Lantus*) 100 Unit/Ml Soln, 3 UNIT SC QHS, #1 VIAL 10/19/16 Hydralazine Hcl* (Hydralazine Hcl*) 10 Mg Tablet, 10 MG PO QID, #120 TAB HOLD IF SBP<110 10/19/16 Verapamil Hcl* (Isoptin*) 80 Mg Tab, 80 MG PO TID, TAB HOLD IF SBP<120 10/19/16 [place]-3 Fatty Acids/Fish Oil (Fish Oil 1,000 mg Capsule) 1 Each Capsule, 1 EACH PO TID, CAP 10/19/16 Finasteride* (Finasteride*) 5 Mg Tablet, 5 MG PO Q9AM, TAB 10/19/16 Mometasone-Formoterol (Dulera) 100-5 Mcg - 13 Gm Hfa.aer.ad, 2 PUFFS INHALATION BID, #1 INHALER 10/19/16 Doxazosin Mesylate* (Doxazosin Mesylate*) 4 Mg Tablet, 4 MG PO HS, TAB HOLD IF SBP<110 10/19/16 Metoprolol Tartrate* (Lopressor*) 25 Mg Tab, 12.5 MG PO BID, #60 TAB HOLD IF SBP<110 10/19/16 Allergies Allergies: Coded Allergies: No Known Allergy (Unverified , 10/19/16) PMhx/Soc History of Surgery: Yes (S/P 2 stents placed) Anesthesia Reaction: No Hx Neurological Disorder: No Hx Respiratory Disorders: Yes (ACUTE RESPIRATORY FAILURE, PNA) Hx Cardiac Disorders: Yes (HTN, HEART FAILURE, CHF) Hx Psychiatric Problems: No Hx Miscellaneous Medical Probl: Yes Hx Alcohol Use: No Hx Substance Use: No Hx Tobacco Use: Yes Physical Exam Vitals Vital Signs Date Time Temp Pulse Resp B/P Pulse Ox O2 Delivery O2 Flow Rate FiO2 01/29/17 05:22 60 16 139/53 100 Nasal Cannula 2.0 01/29/17 04:49 Nasal Cannula 2.0 01/29/17 04:49 Nasal Cannula 01/29/17 04:14 97.3 64 18 130/58 96 Physical Exam Const: No acute distress.Pale Head: Atraumatic. Eyes: Normal Conjunctiva. ENT: Normal External Ears, Nose and Mouth. Neck: Full range of motion. No meningismus. Resp: Clear to auscultation bilaterally. Cardio: Regular rate and rhythm. Abd: Soft, non distended, normal bowel sounds, non tender. Skin: No petechiae or rashes. Back: No midline or flank tenderness. Ext: No cyanosis, or edema. Neur: Awake and alert. No focal deficit Psych: Normal Mood and Affect. Result Diagram: 01/29/17 0446 01/29/17 0446 Results 24 hrs Laboratory Tests Test 01/29/17 04:46 01/29/17 05:30 White Blood Count 6.810^3/ul Red Blood Count 2.2410^6/ul Hemoglobin 7.1g/dl Hematocrit 21.8% Mean Corpuscular Volume 97.3fl Mean Corpuscular Hemoglobin 31.7pg Mean Corpuscular Hemoglobin Concent 32.6g/dl Red Cell Distribution Width 14.6% Platelet Count 54069^3/UL Mean Platelet Volume 9.2fl Neutrophils % 43.0% Lymphocytes % 26.4% Monocytes % 16.0% Eosinophils % 13.5% Basophils % 0.7% Nucleated Red Blood Cells % 0.0/100WBC Neutrophils # 2.910^3/ul Lymphocytes # 1.810^3/ul Monocytes # 1.110^3/ul Eosinophils # 0.910^3/ul Basophils # 0.110^3/ul Nucleated Red Blood Cells # 0.010^3/ul Prothrombin Time 12.3Sec Prothrombin Time Ratio 1.0 INR International Normalized Ratio 0.91 Activated Partial Thromboplast Time 34.8Sec Sodium Level 136mmol/L Potassium Level 3.6mmol/L Chloride Level 96mmol/L Carbon Dioxide Level 30mmol/L Anion Gap 14 Blood Urea Nitrogen 26mg/dl Creatinine 3.83mg/dl Glucose Level 131mg/dl Calcium Level 8.2mg/dl Total Bilirubin 0.0mg/dl Direct Bilirubin 0.00mg/dl Indirect Bilirubin 0.0mg/dl Aspartate Amino Transf (AST/SGOT) 24IU/L Alanine Aminotransferase (ALT/SGPT) 39IU/L Alkaline Phosphatase 160IU/L Troponin I 0.024ng/ml Total Protein 6.1g/dl Albumin 3.2g/dl Globulin 2.90g/dl Albumin/Globulin Ratio 1.10 Stool Occult Blood NEGATIVE Procedures/MDM EKG: Read by emergency physician Rate/Rhythm: Normal Sinus Rhythm 62 beats/min QRS, ST, T-waves: No ST elevation, no T inversion, IRBBB, NS ST/T abn Impression: Abnormal EKG MEDICAL MAKING DECISION: The patient is a 86-year-old male, presenting with severe anemia, probable acute GI bleed. He was treated with 2 units of packed red blood cell The differential diagnoses considered include but are not limited to gastritis, peptic ulcer disease, esophageal varices, Shruthi-Nye tear, carcinoma, polyp , hemorrhoid, fissure, diverticulosis, angiodysplasia. Departure Diagnosis: Primary Impression: GI bleeding Condition: Stable Comments I discussed the findings with the patient. I discussed the patient with his physician Dr. Lopez at 5:15 am who was made aware of the lab, the treatment, the patient condition. The patient is admitted to Tel Disclaimer: Inadvertent spelling and grammatical errors are likely due to EHR/ dictation software use and do not reflect on the overall quality of patient care. Also, please note that the electronic time recorded on this note does not necessarily reflect the actual time of the patient encounter. LYDIA MEDRANO MD Jan 29, 2017 04:35
[2017-01-29 04:54] LABS: BASOPHIL # 0.1 10^3/ul (0.0-0.1); BASOPHILS % 0.7 % (0.0-2.0); EOSINOPHILS # 0.9 10^3/ul (0.0-0.5); EOSINOPHILS % 13.5 % (0.0-7.0); HEMATOCRIT 21.8 % (42.0-52.0); HEMOGLOBIN 7.1 g/dl (14.0-18.0); LYMPHOCYTES # 1.8 10^3/ul (0.8-2.9); LYMPHOCYTES % 26.4 % (15.0-51.0); MEAN CORPUSCULAR HEMOGLOBIN 31.7 pg (29.0-33.0); MEAN CORPUSCULAR HGB CONC 32.6 g/dl (32.0-37.0); MEAN CORPUSCULAR VOLUME 97.3 fl (82.0-101.0); MEAN PLATELET VOLUME 9.2 fl (7.4-10.4); MONOCYTE # 1.1 10^3/ul (0.3-0.9); NEUTROPHIL # 2.9 10^3/ul (1.6-7.5); PLATELET COUNT 272 10^3/UL (140-415); RED BLOOD COUNT 2.24 10^6/ul (4.70-6.10); RED CELL DISTRIBUTION WIDTH 14.6 % (11.5-14.5); WHITE BLOOD COUNT 6.8 10^3/ul (4.8-10.8)
[2017-01-29 05:14] LABS: ALBUMIN 3.2 g/dl (3.3-4.9); ALBUMIN/GLOBULIN RATIO 1.1; CALCIUM 8.2 mg/dl (8.4-10.2); CREATININE 3.83 mg/dl (0.61-1.24); POTASSIUM 3.6 mmol/L (3.5-5.1); TOTAL PROTEIN 6.1 g/dl (6.1-8.1)
[2017-01-29 05:16] LABS: INR 0.91; PROTIME 12.3 Sec (11.9-14.9)
[2017-01-29 05:17] LABS: PARTIAL THROMBOPLASTIN TIME 34.8 Sec (25.0-35.0)
[2017-01-29 05:25] LABS: TROPONIN-I 0.024 ng/ml (0.00-0.12)
[2017-01-29] MEDS ORDERED: ATOR80TA75 PO (13:18)
[2017-01-29] MEDS ORDERED: CLOP75TA27 PO (13:18)
[2017-01-29] MEDS ORDERED: ALLO100T PO (13:18)
[2017-01-29] MEDS ORDERED: DOCU-159 PO (13:19)
[2017-01-29] MEDS ORDERED: EPO10ESRD SC (13:20)
[2017-01-29] MEDS ORDERED: OMEG1CAP22 PO (13:23)
[2017-01-29] MEDS ORDERED: OMEG-135 PO (13:24)
[2017-01-29] MEDS ORDERED: ACET325T45 PO (13:25)
[2017-01-29] MEDS ORDERED: NASO17 NASAL (13:26)
[2017-01-29] MEDS ORDERED: ALBU18HF INHALATION (13:26)
[2017-01-29] MEDS ORDERED: NITR0.4T32 SL (13:27)
[2017-01-29] MEDS ORDERED: NIFE60TA7 PO (13:28)
[2017-01-29] MEDS ORDERED: [UNRECOGNIZED DRUG - CODE] PO (13:29)
[2017-01-29] MEDS ORDERED: VALS80TA2 PO (13:30)
[2017-01-29] MEDS ORDERED: CHOL100062 PO (13:32)
[2017-01-29] MEDS ORDERED: NITROGLYCERIN (SL) 0.4 MG TAB SL PRN (15:30)
[2017-01-29] MEDS ORDERED: ACETAMINOPHEN 325 MG TAB PO PRN ×2 (15:30)
[2017-01-29] MEDS ORDERED: ZOLPIDEM 5 MG TAB PO PRN (15:30)
[2017-01-29] MEDS ORDERED: ALBUTEROL HFA 8 GM INHALER INH PRN (15:30)
[2017-01-29] MEDS ORDERED: ONDANSETRON 4 MG TAB PO PRN (15:30)
[2017-01-29] MEDS ORDERED: GLUCOSE GEL 15 GRAM TUBE PO PRN ×2 (16:00)
[2017-01-29] MEDS ORDERED: DEXTROSE 50% 50 ML SYRINGE IV PRN ×2 (16:00)
[2017-01-29] MEDS ORDERED: GLUCAGON 1 MG INJ IM PRN (16:00)
[2017-01-29] MEDS ORDERED: GLUCOSE GEL 15 GRAM TUBE BUCCAL PRN (16:00)
--- NOTE | 2017-01-29 17:13 | HP ---
DATE OF ADMISSION: 01/29/2017 CHIEF COMPLAINT AND HISTORY OF PRESENT ILLNESS: The patient is an 86-year-old gentleman well known to me for the past few months with history of chronic kidney disease on maintenance hemodialysis 3 d ays a week, last done yesterday morning, presenting with increasing generalized weakness and a hemo globin of 6.9 taken at the dialysis unit and he has also had a history of positive Hemoccult, checke d about a week prior and was evaluated in the emergency room and was admitted. REVIEW OF SYSTEMS: HEAD: No history of headaches, focal weakness, or numbness. No prior history of strokes. EYES: No blurry vision or glaucoma. ENT: Noncontributory. NECK: No history of thyroid disease. CHEST: No bronchitis, hay fever, or asthma. The patient smoked for over 30 years, a pack a day, st opped 20 years back. CARDIOVASCULAR: History of coronary artery disease, status post non-ST elevation myocardial infarct ion in 09/2016, status post balloon angioplasty and stenting of proximal circumflex and stent in the proximal to mid RCA in September, and patient was re-admitted at [facility] and then subseque ntly at [facility], requiring further interventions. The patient had previously been on Coumadin which wa s stopped after he began having severe epistaxis. Presently on Plavix and aspirin alone. Denies an y shortness of breath, any palpitations. GASTROINTESTINAL: Denies any constipation, diarrhea, change in bowel habits. No history of hematem esis or melena. GENITOURINARY: No dysuria, hematuria or kidney stones. PAST MEDICAL HISTORY: He also has diabetes mellitus type 2. Prior surgeries also include right isaiah st hemodialysis catheter placement. MEDICATIONS: Include: 1. Aspirin 81 mg daily. 2. MiraLax 17 grams p.o. daily. 3. Tradjenta 5 mg q.a.m. 4. Renvela 800 mg 2 tablets p.o. daily. 5. Pantoprazole 40 mg daily. 6. Lantus 3 units subcu at bedtime. 7. Hydralazine 10 mg q.i.d. 8. Verapamil 80 mg t.i.d. 9. Finasteride 5 mg daily. 10. Lantus 5 units subcu at bedtime. 11. Metoprolol 12.5 mg b.i.d. 12. Nifedipine 60 mg daily. 13. Nitroglycerin on a p.r.n. basis. 14. Diovan 80 mg p.o. b.i.d. 15. Plavix 75 mg p.o. daily. 16. Atorvastatin 80 mg daily. PHYSICAL EXAMINATION: GENERAL: The patient is an average-built female who appears to be in no acute distress. VITAL SIGNS: Temperature 97.3, blood pressure 130/58, heart rate 64 per minute. HEENT: Head normocephalic. Mild pallor without cyanosis or icterus. Tongue is moist. NECK: Supple. No thyromegaly, bruits or lymphadenopathy. LUNGS: Clinically clear. HEART: S1, S2 heard with no definite gallops. ABDOMEN: Soft, nontender, no hepatosplenomegaly. EXTREMITIES: No edema. Homans is negative. NEUROLOGIC: No localizing or lateralizing signs. LABORATORY DATA: Hemoglobin 7.1 after 1 unit of RBC transfusion. Platelet count is 272,000. Sodiu m 136, potassium 3.6, BUN 26, creatinine 3.83. IMPRESSION: 1. Severe anemia secondary to combination of low grade gastrointestinal bleed, exact etiology undet ermined, along with chronic renal failure. 2. End-stage renal failure, on maintenance hemodialysis. 3. Diabetes mellitus type 2. 4. Paroxysmal atrial fibrillation. 5. Coronary artery disease. 6. Hypertension. PLAN: The patient will be admitted to telemetry. Transfuse as needed. We will request further nep hrology consultation with Dr. Mejia and GI consultation will be obtained with Dr. Smith. Continue PPI. The patient will need to be maintained on aspirin and Plavix in view of the recent stenting. Observe for further bleeding and treat accordingly. Dictated By: GABRIELA SHEIKH MD, SR/KIAN Conf#: [id number] DID#: [id number]
[2017-01-29 18:14] VITALS: PULSE 98
[2017-01-29 18:20] VITALS: BP 202/85; PULSE 65; RESP 18
[2017-01-29] MEDS ORDERED: SOD CHLORIDE 0.9% 1,000 ML IV PRN (18:20)
[2017-01-29] MEDS ORDERED: METOPROLOL 25 MG TAB ONE ×2 (18:24→18:31)
[2017-01-29 18:28] VITALS: Ht 175.3 cm; Wt 55.7 kg
[2017-01-29] MEDS ORDERED: ALBUMIN HUMAN 25% 50 ML IV PRN (18:30)
[2017-01-29] MEDS ORDERED: VALSARTAN 80 MG TAB ONE (18:32)
[2017-01-29] MEDS: METOPROLOL 25 MG TAB PO SCH (18:33)
[2017-01-29] MEDS: VALSARTAN 80 MG TAB PO SCH (18:34)
[2017-01-29 19:38] LABS: IRON 270 ug/dl (35-150)
[2017-01-29 19:47] LABS: TOTAL IRON BINDING CAPACITY 308 ug/dl (241-421)
[2017-01-29 20:00] VITALS: PULSE 63
[2017-01-29 20:27] VITALS: BP 193/80; RESP 16
[2017-01-29] MEDS: DOCUSATE SODIUM 100 MG CAP PO SCH (20:54)
[2017-01-29] MEDS: ATORVASTATIN 80 MG TAB PO SCH (20:54)
[2017-01-29] MEDS: SEVELAMER CARBONATE 0.8 GM PKT PO SCH (20:55)
[2017-01-29] MEDS: EPOETIN 10000 UNITS/1 ML INJ (ESRD) SC SCH (20:59)
[2017-01-29] MEDS: INSULIN GLARGINE [LANtus] 3 ML PEN SC SCH (21:00)
[2017-01-30] VITALS (23 sets, daily range): BP systolic 80–171; BP diastolic 45–74; PULSE 53–62; RESP 16–20
[2017-01-30] MEDS: ACCU-CHEK XX SCH (01:37)
[2017-01-30 05:41] LABS: HEMATOCRIT 26.7 % (42.0-52.0); HEMOGLOBIN 8.7 g/dl (14.0-18.0); MEAN CORPUSCULAR HEMOGLOBIN 30.6 pg (29.0-33.0); MEAN CORPUSCULAR HGB CONC 32.6 g/dl (32.0-37.0); MEAN PLATELET VOLUME 9.3 fl (7.4-10.4); PLATELET COUNT 276 10^3/UL (140-415); RED BLOOD COUNT 2.84 10^6/ul (4.70-6.10); RED CELL DISTRIBUTION WIDTH 16.6 % (11.5-14.5); WHITE BLOOD COUNT 7.9 10^3/ul (4.8-10.8)
[2017-01-30 06:05] LABS: CALCIUM 8.8 mg/dl (8.4-10.2); CREATININE 4.05 mg/dl (0.61-1.24)
[2017-01-30 06:41] LABS: FERRITIN 98.7 ng/ml (11.1-264.0)
[2017-01-30 07:17] LABS: FOLATE > 20.0 ng/ml (2.8-20.0)
[2017-01-30] MEDS: INSULIN ASPART [NOVOLOG] 3 ML PEN SC SCH ×4 (08:00→20:50)
[2017-01-30] MEDS: NIFEdipine (XL) 60 MG TAB PO SCH ×2 (09:00→13:17)
[2017-01-30] MEDS: VALSARTAN 80 MG TAB PO SCH ×3 (09:00→22:34)
[2017-01-30] MEDS: METOPROLOL 25 MG TAB PO SCH ×3 (09:00→21:00)
[2017-01-30] MEDS: SEVELAMER CARBONATE 0.8 GM PKT PO SCH ×3 (09:39→17:57)
[2017-01-30] MEDS: ASPIRIN (EC) 81 MG TAB PO SCH (09:40)
[2017-01-30] MEDS: DOCUSATE SODIUM 100 MG CAP PO SCH ×2 (09:40→22:34)
[2017-01-30] MEDS: CLOPIDOGREL 75 MG TAB PO SCH (09:40)
[2017-01-30] MEDS: CHOLECALCIFEROL 1,000 UNIT TAB PO SCH (09:40)
[2017-01-30] MEDS: LINAGLIPTIN 5 MG TABLET PO SCH (09:40)
[2017-01-30] MEDS: ALLOPURINOL 100 MG TAB PO SCH (09:40)
[2017-01-30] MEDS: FINASTERIDE 5 MG TAB PO SCH (09:40)
--- NOTE | 2017-01-30 13:35 | CONS ---
Date/Time of Note Date/Time of Note DATE: 01/30/17 TIME: 13:25 Assessment/Plan Assessment/Plan Additional Assessment/Plan 1.Severe anemia with heme positive stools 2.ESRD on HD, MWF 3.NSTEMI s/p PCI with stent placement, 10/20/2016 4.P.A.Fibrillation 5.AODM 6.Htn 7.Dyslipidemia p: -HD today with PRBC transfusion. Pt received one unit prbc transfusion yesterday -HD orders d/w HDRN -Check iron studies -GI Eval pending -Prior records from parts person indicate that pts anticoagulation cannot be discontinued because of coronary stent placement -Monitor lytes -Monitor bp -Pt agreeable to prbc transfusion with HD today -Case/orders d/w RN Consultation Date/Type/Reason Admit Date/Time Jan 29, 2017 at 05:18 Date of Consultation: Jan 30, 2017 Type of Consultation: Nephrology Reason for Consultation ESRD on HD, MWF Hx of Present Illness 86yo male admitted with generalized weakness and severe anemia. Pt with heme occult positive. Outpt HB 6.9, rpt cbc in ER showed a HB 7.1. Pt is admitted for PRBC transfusion and GI eval for heme positive stools. Pt with h/o acute NSTEMI in 10/20/16. Pt underwent cardiac cath with PCI of prox Cx and Prox to mid RCA withstent placement. Pt has been on plavix and ASA since. Pt also has h/ o P. A.Fib which was converted to NSR in 10/19/16. Renal consult requested for ESRD on HD Past Medical History Medical History: congestive heart failure, coronary artery disease, diabetes, GI bleed, high cholesterol, hypertension, renal disease Past Surgical History Past Surgical Hx: angioplasty, other (access placement for HD) Family History Significant Family History: no pertinent family hx Social History Alcohol Use: none Smoking Status: Never smoker Drug Use: none Exam/Review of Systems Vital Signs Vitals Vital Signs Date Time Temp Pulse Resp B/P Pulse Ox O2 Delivery O2 Flow Rate FiO2 01/30/17 13:15 97.7 62 18 171/66 98 Room Air 01/29/17 16:56 2.0 Intake and Output 01/29/17 01/29/17 01/30/17 14:59 22:59 06:59 Intake Total 250 ml 500 ml Balance 250 ml 500 ml Results Result Diagram: 01/30/17 0444 01/30/17 0444 Results 24 hrs Laboratory Tests Test 01/29/17 20:53 01/30/17 01:36 01/30/17 04:44 01/30/17 08:32 Bedside Glucose 192 103 98 White Blood Count 7.9 Red Blood Count 2.84 #L Hemoglobin 8.7 #L Hematocrit 26.7 #L Mean Corpuscular Volume 94.0 Mean Corpuscular Hemoglobin 30.6 Mean Corpuscular Hemoglobin Concent 32.6 Red Cell Distribution Width 16.6 H Platelet Count 276 Mean Platelet Volume 9.3 Nucleated Red Blood Cells % 0.0 Absolute Reticulocyte Count 0.057 Percent Reticulocyte Count 2.0 H Sodium Level 138 Potassium Level 4.0 Chloride Level 100 Carbon Dioxide Level 30 Anion Gap 12 Blood Urea Nitrogen 31 H Creatinine 4.05 H Glucose Level 80 # Calcium Level 8.8 Ferritin 98.7 Vitamin B12 Level 711 Folate > 20.0 H Test 01/30/17 12:04 Bedside Glucose 105 Medications Medications Current Medications Acetaminophen (Tylenol Tab) 650 mg Q6 PRN PO PAIN; Start 01/29/17 at 15:30 Acetaminophen (Tylenol Tab) 650 mg Q6H PRN PO PAIN LEVEL 1-5; Start 01/29/17 at 15:30 Albuterol (Ventolin Hfa) 2 puff Q6H PRN INH WHEEZING AND SOB; Start 01/29/17 at 15:30 Allopurinol (Zyloprim) 100 mg DAILY PO Last administered on 01/30/17 09:40; Admin Dose 100 MG; Start 01/30/17 at 09:00 Aspirin (Halfprin) 81 mg QAM PO Last administered on 01/30/17 09:40; Admin Dose 81 MG; Start 01/30/17 at 09:00 Atorvastatin Calcium (Lipitor) 80 mg QHS PO Last administered on 01/29/17 20: 54; Admin Dose 80 MG; Start 01/29/17 at 21:00 Cholecalciferol (Vitamin D) 1,000 unit DAILY PO Last administered on 01/30/17 09:40; Admin Dose 1,000 UNIT; Start 01/30/17 at 09:00 Clopidogrel Bisulfate (plaVIX) 75 mg DAILY PO Last administered on 01/30/17 09 :40; Admin Dose 75 MG; Start 01/30/17 at 09:00 Docusate Sodium (Colace) 100 mg BID PO Last administered on 01/30/17 09:40; Admin Dose 100 MG; Start 01/29/17 at 21:00 Epoetin Guy (Epogen (Esrd)) 10,000 units MoWeFr@17 SC Last administered on 20:59; Admin Dose 10,000 UNITS; Start 01/29/17 at 17:00 Finasteride (Proscar) 5 mg DAILY PO Last administered on 01/30/17 09:40; Admin Dose 5 MG; Start 01/30/17 at 09:00 Insulin Glargine (Lantus) 5 unit QHS SC Last administered on 01/29/17 21:00; Admin Dose 5 UNIT; Start 01/29/17 at 21:00 Linagliptin (Tradjenta) 5 mg QAM PO Last administered on 01/30/17 09:40; Admin Dose 5 MG; Start 01/30/17 at 09:00 Metoprolol Tartrate (Lopressor) 12.5 mg BID PO Last administered on 01/30/17 13:18; Admin Dose 12.5 MG; Start 01/29/17 at 21:00 Nifedipine (Procardia Xl) 60 mg DAILY PO Last administered on 01/30/17 13:17; Admin Dose 60 MG; Start 01/30/17 at 09:00 Ondansetron HCl (Zofran Tab) 4 mg Q6H PRN PO NAUSEA AND/OR VOMITING; Start 01/29/17 at 15:30 Valsartan (Diovan) 80 mg BID PO Last administered on 01/30/17 13:18; Admin Dose 80 MG; Start 01/29/17 at 21:00 Zolpidem Tartrate (Ambien) 5 mg QHS PRN PO INSOMNIA; Start 01/29/17 at 15:30 Miscellaneous Information 1 ea NOTE XX ; Start 01/29/17 at 16:00 Glucose (Glutose) 15 gm Q15M PRN PO DECREASED GLUCOSE; Start 01/29/17 at 16:00 Glucose (Glutose) 22.5 gm Q15M PRN PO DECREASED GLUCOSE; Start 01/29/17 at 16: 00 Dextrose (D50w Syringe) 25 ml Q15M PRN IV DECREASED GLUCOSE; Start 01/29/17 at 16:00 Dextrose (D50w Syringe) 50 ml Q15M PRN IV DECREASED GLUCOSE; Start 01/29/17 at 16:00 Glucagon (Glucagen) 1 mg Q15M PRN IM DECREASED GLUCOSE; Start 01/29/17 at 16:00 Glucose 15 gm 15 gm Q15M PRN BUCCAL DECREASED GLUCOSE; Start 01/29/17 at 16:00 Sodium Chloride (NS) 1,000 ml @ 0 mls/hr Q0M PRN IV TO KEEP SBP ABOVE 90; Start 01/29/17 at 18:20 Clonidine (Catapres) 0.1 mg Q4H PRN PO ELEVATED BLOOD PRESSURE Last administered on 01/29/17 22:55; Admin Dose 0.1 MG; Start 01/29/17 at 22:40 Diagnostic Test (Pha) (Accu-Chek) 1 ea 02 XX Last administered on 01/30/17 01: 37; Admin Dose 1 EA; Start 01/30/17 at 02:00 PHOEBE PICKETT MD Jan 30, 2017 13:35
--- NOTE | 2017-01-30 15:41 | CONS ---
Date/Time of Note Date/Time of Note DATE: 01/30/17 TIME: 15:39 Assessment/Plan Assessment/Plan Additional Assessment/Plan IMPRESSION: 1. Severe anemia secondary to combination of low grade gastrointestinal bleed, exact etiology undetermined, along with chronic renal failure. 2. End-stage renal failure, on maintenance hemodialysis. 3. Diabetes mellitus type 2. 4. Paroxysmal atrial fibrillation. 5. Coronary artery disease. 6. Hypertension. 7. Positive stool guaiac Plan Continue PPI Monitor H&H and the patient wants to go home Patient does not have overt GI bleeding. His stool for occult blood might be positive secondary to Plavix. If patient agrees then he may need at least colonoscopy as an outpatient if it is not done in last 5 years Consultation Date/Type/Reason Admit Date/Time Jan 29, 2017 at 05:18 Initial Consult Date 01/30/17 Type of Consultation: Nephrology 24 HR Interval Summary Free Text/Dictation Patient denies of any melena or hematochezia No abdominal pain no nausea no vomiting Constitutional: improved, no complaints Exam/Review of Systems Vital Signs Vitals Vital Signs Date Time Temp Pulse Resp B/P Pulse Ox O2 Delivery O2 Flow Rate FiO2 01/30/17 15:00 62 157/70 01/30/17 13:15 97.7 18 98 Room Air 01/29/17 16:56 2.0 Intake and Output 01/29/17 01/29/17 01/30/17 15:00 23:00 07:00 Intake Total 250 ml 500 ml Balance 250 ml 500 ml Exam Constitutional: alert, oriented, well developed Psych: nl mood/affect, no complaints Head: atraumatic, normocephalic Eyes: EOMI, PERRL, nl conjunctiva, nl lids, nl sclera ENMT: nl external ears & nose, nl lips & teeth, nl nasal mucosa & septum Neck: non-tender, supple Respiratory: clear to auscultation, normal air movement Cardiovascular: nl pulses, regular rate and rhythm Gastrointestinal: nl liver, spleen, non-tender, soft Musculoskeletal: nl extremities to inspection, nl gait and stance Extremities: normal pulses 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, nl mental status, nl speech, nl strength Skin: nl turgor, No rash or lesions Lymph: nl lymph nodes Results Result Diagram: 01/30/17 0444 12/9/17 0444 Results 24 hrs Laboratory Tests Test 01/29/17 20:53 01/30/17 01:36 01/30/17 04:44 01/30/17 08:32 Bedside Glucose 192 103 98 White Blood Count 7.9 Red Blood Count 2.84 #L Hemoglobin 8.7 #L Hematocrit 26.7 #L Mean Corpuscular Volume 94.0 Mean Corpuscular Hemoglobin 30.6 Mean Corpuscular Hemoglobin Concent 32.6 Red Cell Distribution Width 16.6 H Platelet Count 276 Mean Platelet Volume 9.3 Nucleated Red Blood Cells % 0.0 Absolute Reticulocyte Count 0.057 Percent Reticulocyte Count 2.0 H Sodium Level 138 Potassium Level 4.0 Chloride Level 100 Carbon Dioxide Level 30 Anion Gap 12 Blood Urea Nitrogen 31 H Creatinine 4.05 H Glucose Level 80 # Calcium Level 8.8 Ferritin 98.7 Vitamin B12 Level 711 Folate > 20.0 H Test 01/30/17 12:04 Bedside Glucose 105 Medications Medications Current Medications Acetaminophen (Tylenol Tab) 650 mg Q6 PRN PO PAIN; Start 01/29/17 at 15:30 Acetaminophen (Tylenol Tab) 650 mg Q6H PRN PO PAIN LEVEL 1-5; Start 01/29/17 at 15:30 Albuterol (Ventolin Hfa) 2 puff Q6H PRN INH WHEEZING AND SOB; Start 01/29/17 at 15:30 Allopurinol (Zyloprim) 100 mg DAILY PO Last administered on 01/30/17 09:40; Admin Dose 100 MG; Start 01/30/17 at 09:00 Aspirin (Halfprin) 81 mg QAM PO Last administered on 01/30/17 09:40; Admin Dose 81 MG; Start 01/30/17 at 09:00 Atorvastatin Calcium (Lipitor) 80 mg QHS PO Last administered on 01/29/17 20: 54; Admin Dose 80 MG; Start 01/29/17 at 21:00 Cholecalciferol (Vitamin D) 1,000 unit DAILY PO Last administered on 01/30/17 09:40; Admin Dose 1,000 UNIT; Start 01/30/17 at 09:00 Clopidogrel Bisulfate (plaVIX) 75 mg DAILY PO Last administered on 01/30/17 09 :40; Admin Dose 75 MG; Start 01/30/17 at 09:00 Docusate Sodium (Colace) 100 mg BID PO Last administered on 01/30/17 09:40; Admin Dose 100 MG; Start 01/29/17 at 21:00 Epoetin Guy (Epogen (Esrd)) 10,000 units MoWeFr@17 SC Last administered on 20:59; Admin Dose 10,000 UNITS; Start 01/29/17 at 17:00 Finasteride (Proscar) 5 mg DAILY PO Last administered on 01/30/17 09:40; Admin Dose 5 MG; Start 01/30/17 at 09:00 Insulin Glargine (Lantus) 5 unit QHS SC Last administered on 01/29/17 21:00; Admin Dose 5 UNIT; Start 01/29/17 at 21:00 Linagliptin (Tradjenta) 5 mg QAM PO Last administered on 01/30/17 09:40; Admin Dose 5 MG; Start 01/30/17 at 09:00 Metoprolol Tartrate (Lopressor) 12.5 mg BID PO Last administered on 01/30/17 13:18; Admin Dose 12.5 MG; Start 01/29/17 at 21:00 Nifedipine (Procardia Xl) 60 mg DAILY PO Last administered on 01/30/17 13:17; Admin Dose 60 MG; Start 01/30/17 at 09:00 Ondansetron HCl (Zofran Tab) 4 mg Q6H PRN PO NAUSEA AND/OR VOMITING; Start 01/29/17 at 15:30 Valsartan (Diovan) 80 mg BID PO Last administered on 01/30/17 13:18; Admin Dose 80 MG; Start 01/29/17 at 21:00 Zolpidem Tartrate (Ambien) 5 mg QHS PRN PO INSOMNIA; Start 01/29/17 at 15:30 Miscellaneous Information 1 ea NOTE XX ; Start 01/29/17 at 16:00 Glucose (Glutose) 15 gm Q15M PRN PO DECREASED GLUCOSE; Start 01/29/17 at 16:00 Glucose (Glutose) 22.5 gm Q15M PRN PO DECREASED GLUCOSE; Start 01/29/17 at 16: 00 Dextrose (D50w Syringe) 25 ml Q15M PRN IV DECREASED GLUCOSE; Start 01/29/17 at 16:00 Dextrose (D50w Syringe) 50 ml Q15M PRN IV DECREASED GLUCOSE; Start 01/29/17 at 16:00 Glucagon (Glucagen) 1 mg Q15M PRN IM DECREASED GLUCOSE; Start 01/29/17 at 16:00 Glucose 15 gm 15 gm Q15M PRN BUCCAL DECREASED GLUCOSE; Start 01/29/17 at 16:00 Sodium Chloride (NS) 1,000 ml @ 0 mls/hr Q0M PRN IV TO KEEP SBP ABOVE 90; Start 01/29/17 at 18:20 Clonidine (Catapres) 0.1 mg Q4H PRN PO ELEVATED BLOOD PRESSURE Last administered on 01/29/17 22:55; Admin Dose 0.1 MG; Start 01/29/17 at 22:40 Diagnostic Test (Pha) (Accu-Chek) 1 ea 02 XX Last administered on 01/30/17 01: 37; Admin Dose 1 EA; Start 01/30/17 at 02:00 BETTYE CANSECO MD Jan 30, 2017 15:41
--- NOTE | 2017-01-30 17:23 | CONS ---
DATE OF ADMISSION: 01/29/2017 DATE OF CONSULTATION: GASTROINTESTINAL CONSULTATION REFERRING PHYSICIAN: Dr. Saeid Shiekh. REASON FOR CONSULTATION: Severe anemia. HISTORY OF PRESENT ILLNESS: An 86-year-old male with a past history of chronic renal disease on bart lysis, presented to the ER with generalized weakness. The patient was evaluated in the ER. His hem oglobin was 6.9, so was admitted for further treatment. He had a positive Hemoccult blood. 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 PAST MEDICAL HISTORY: The patient has diabetes mellitus type 2 and also had multiple stent placemen t. MEDICATIONS: All reviewed. PHYSICAL EXAMINATION GENERAL: Alert, awake, not in distress. VITAL SIGNS: Stable. HEENT: Unremarkable. NECK: Supple, no thyromegaly, no lymphadenopathy. CARDIOVASCULAR: No murmur, gallop or click. LUNGS: Clear. ABDOMEN: Benign. EXTREMITIES: No edema. CENTRAL NERVOUS SYSTEM: Grossly within normal limits. IMPRESSION: 1. Diabetes mellitus. 2. Renal failure on dialysis. 3. Coronary artery disease, multiple stents. 4. Paroxysmal atrial fibrillation. 5. Hypertension. 6. Anemia, which is a combination of slow GI bleeding and also chronic disease. PLAN: At this point, is to continue PPI. Continue present care. Transfuse 1 unit of packed cell R BC and monitor H and H. The patient does not have overt GI bleeding. Dictated By: BETTYE CANSECO MD PJ/NTS Conf#: [id number] DID#: [id number] CC: SAEID SHEIKH MD;*EndCC*
[2017-01-30] MEDS: INSULIN GLARGINE [LANtus] 3 ML PEN SC SCH (20:55)
[2017-01-30] MEDS: ATORVASTATIN 80 MG TAB PO SCH (22:33)
[2017-01-31] VITALS (13 sets, daily range): BP systolic 114–166; BP diastolic 56–70; PULSE 40–61; RESP 19–21
[2017-01-31] MEDS: ACCU-CHEK XX SCH (01:27)
[2017-01-31 06:15] LABS: BASOPHIL # 0.1 10^3/ul (0.0-0.1); EOSINOPHILS # 1.1 10^3/ul (0.0-0.5); EOSINOPHILS % 14.5 % (0.0-7.0); HEMATOCRIT 29.8 % (42.0-52.0); HEMOGLOBIN 9.9 g/dl (14.0-18.0); LYMPHOCYTES # 1.5 10^3/ul (0.8-2.9); LYMPHOCYTES % 19.5 % (15.0-51.0); MEAN CORPUSCULAR HEMOGLOBIN 30.7 pg (29.0-33.0); MEAN CORPUSCULAR HGB CONC 33.2 g/dl (32.0-37.0); MEAN CORPUSCULAR VOLUME 92.5 fl (82.0-101.0); MEAN PLATELET VOLUME 9.5 fl (7.4-10.4); MONOCYTE # 1.1 10^3/ul (0.3-0.9); MONOCYTES % 13.5 % (0.0-11.0); NEUTROPHILS % 51.2 % (39.0-77.0); PLATELET COUNT 239 10^3/UL (140-415); RED BLOOD COUNT 3.22 10^6/ul (4.70-6.10); RED CELL DISTRIBUTION WIDTH 15.9 % (11.5-14.5); WHITE BLOOD COUNT 7.8 10^3/ul (4.8-10.8)
[2017-01-31 07:03] LABS: CALCIUM 8.5 mg/dl (8.4-10.2); CREATININE 3.26 mg/dl (0.61-1.24); POTASSIUM 3.9 mmol/L (3.5-5.1)
[2017-01-31] MEDS: INSULIN ASPART [NOVOLOG] 3 ML PEN SC SCH ×4 (08:00→20:42)
[2017-01-31] MEDS: SEVELAMER CARBONATE 0.8 GM PKT PO SCH ×3 (08:52→17:18)
[2017-01-31] MEDS: CHOLECALCIFEROL 1,000 UNIT TAB PO SCH (08:53)
[2017-01-31] MEDS: ALLOPURINOL 100 MG TAB PO SCH (08:53)
[2017-01-31] MEDS: DOCUSATE SODIUM 100 MG CAP PO SCH ×2 (08:53→20:42)
[2017-01-31] MEDS: FINASTERIDE 5 MG TAB PO SCH (08:53)
[2017-01-31] MEDS: LINAGLIPTIN 5 MG TABLET PO SCH (08:53)
[2017-01-31] MEDS: ASPIRIN (EC) 81 MG TAB PO SCH (08:53)
[2017-01-31] MEDS: CLOPIDOGREL 75 MG TAB PO SCH (08:53)
[2017-01-31] MEDS: VALSARTAN 80 MG TAB PO SCH ×2 (08:54→20:43)
[2017-01-31] MEDS: NIFEdipine (XL) 60 MG TAB PO SCH (08:54)
[2017-01-31] MEDS: METOPROLOL 25 MG TAB PO SCH ×2 (08:55→20:44)
--- NOTE | 2017-01-31 14:47 | PN ---
DATE: 01/31/2017 SUBJECTIVE: The patient overall feels well. Denies any chest pain or shortness of breath, no abdom inal discomfort. PHYSICAL EXAMINATION: GENERAL: Patient awake, alert. VITAL SIGNS: Temperature 97.8, blood pressure 136/64, respiration 20 per minute, O2 sats 99%. HEENT: Mild pallor without cyanosis. LUNGS: Clinically clear. HEART: S1, S2 heard with no definite gallops. ABDOMEN: Soft, nontender, no hepatosplenomegaly. EXTREMITIES: No edema. IMPRESSION: 1. Severe anemia secondary to combination of low grade GI bleed and chronic renal failure. 2. End-stage renal failure, on maintenance hemodialysis. 3. Diabetes mellitus type 2. 4. Paroxysmal atrial fibrillation. 5. Coronary artery disease. 6. Hypertension. PLAN: We will repeat CBC in a.m. Will discuss with Dr. Smith regarding further GI workup. Contin ue recommendations from nephrology, per Dr. Lockett. Dictated By: GABRIELA SHEIKH MD, SR/KIAN Conf#: [id number] DID#: [id number]
--- NOTE | 2017-01-31 18:29 | CONS ---
Date/Time of Note Date/Time of Note DATE: 01/31/17 TIME: 18:28 Assessment/Plan Assessment/Plan Additional Assessment/Plan IMPRESSION: 1. Diabetes mellitus. 2. Renal failure on dialysis. 3. Coronary artery disease, multiple stents. 4. Paroxysmal atrial fibrillation. 5. Hypertension. 6. Anemia, which is a combination of slow GI bleeding and also chronic disease. Patient stool for occult blood was passed PLAN: At this point, is to continue PPI. Continue present care. Transfuse 1 unit of packed cell RBC and monitor H and H. If patient agrees I will proceed with both EGD and colonoscopy Consultation Date/Type/Reason Admit Date/Time Jan 29, 2017 at 05:18 Initial Consult Date 01/30/17 Type of Consultation: Nephrology 24 HR Interval Summary Constitutional: improved, no complaints Exam/Review of Systems Vital Signs Vitals Vital Signs Date Time Temp Pulse Resp B/P Pulse Ox O2 Delivery O2 Flow Rate FiO2 01/31/17 16:01 97.9 51 19 165/70 99 01/30/17 13:15 Room Air 01/29/17 16:56 2.0 Intake and Output 01/30/17 01/30/17 01/31/17 14:59 22:59 06:59 Intake Total 2100 ml 750 ml Output Total 2500 ml Balance -400 ml 750 ml Exam Constitutional: alert, oriented, well developed Psych: nl mood/affect, no complaints Head: atraumatic, normocephalic Eyes: EOMI, PERRL, nl conjunctiva, nl lids, nl sclera ENMT: nl external ears & nose, nl lips & teeth, nl nasal mucosa & septum Neck: non-tender, supple Respiratory: clear to auscultation, normal air movement Cardiovascular: nl pulses, regular rate and rhythm Gastrointestinal: nl liver, spleen, non-tender, soft Musculoskeletal: nl extremities to inspection, nl gait and stance Extremities: normal pulses 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, nl mental status, nl speech, nl strength Skin: nl turgor, No rash or lesions Lymph: nl lymph nodes Results Result Diagram: 01/31/17 0539 01/31/17 0539 Results 24 hrs Laboratory Tests Test 01/30/17 20:49 01/31/17 01:26 01/31/17 05:39 01/31/17 06:01 Bedside Glucose 162 178 White Blood Count 7.8 Red Blood Count 3.22 L Hemoglobin 9.9 L Hematocrit 29.8 L Mean Corpuscular Volume 92.5 Mean Corpuscular Hemoglobin 30.7 Mean Corpuscular Hemoglobin Concent 33.2 Red Cell Distribution Width 15.9 H Platelet Count 239 Mean Platelet Volume 9.5 Neutrophils % 51.2 Lymphocytes % 19.5 Monocytes % 13.5 H Eosinophils % 14.5 H Basophils % 1.0 Nucleated Red Blood Cells % 0.0 Neutrophils # 4.0 Lymphocytes # 1.5 Monocytes # 1.1 H Eosinophils # 1.1 H Basophils # 0.1 Nucleated Red Blood Cells # 0.0 Sodium Level 132 L Potassium Level 3.9 Chloride Level 98 Carbon Dioxide Level 26 Anion Gap 12 Blood Urea Nitrogen 22 H Creatinine 3.26 H Glucose Level 96 Calcium Level 8.5 Lab Scanned Report BLOOD TRANSFUSION Test 01/31/17 07:46 01/31/17 11:50 01/31/17 17:16 Bedside Glucose 95 166 164 Medications Medications Current Medications Acetaminophen (Tylenol Tab) 650 mg Q6 PRN PO PAIN; Start 01/29/17 at 15:30 Acetaminophen (Tylenol Tab) 650 mg Q6H PRN PO PAIN LEVEL 1-5; Start 01/29/17 at 15:30 Albuterol (Ventolin Hfa) 2 puff Q6H PRN INH WHEEZING AND SOB; Start 01/29/17 at 15:30 Allopurinol (Zyloprim) 100 mg DAILY PO Last administered on 01/31/17 08:53; Admin Dose 100 MG; Start 01/30/17 at 09:00 Aspirin (Halfprin) 81 mg QAM PO Last administered on 01/31/17 08:53; Admin Dose 81 MG; Start 01/30/17 at 09:00 Atorvastatin Calcium (Lipitor) 80 mg QHS PO Last administered on 01/30/17 22: 33; Admin Dose 80 MG; Start 01/29/17 at 21:00 Cholecalciferol (Vitamin D) 1,000 unit DAILY PO Last administered on 08:53; Admin Dose 1,000 UNIT; Start 01/30/17 at 09:00 Clopidogrel Bisulfate (plaVIX) 75 mg DAILY PO Last administered on 01/31/17 08:53; Admin Dose 75 MG; Start 01/30/17 at 09:00 Docusate Sodium (Colace) 100 mg BID PO Last administered on 01/31/17 08:53; Admin Dose 100 MG; Start 01/29/17 at 21:00 Epoetin Guy (Epogen (Esrd)) 10,000 units MoWeFr@17 SC Last administered on 20:59; Admin Dose 10,000 UNITS; Start 01/29/17 at 17:00 Finasteride (Proscar) 5 mg DAILY PO Last administered on 01/31/17 08:53; Admin Dose 5 MG; Start 01/30/17 at 09:00 Insulin Glargine (Lantus) 5 unit QHS SC Last administered on 01/30/17 20:55; Admin Dose 5 UNIT; Start 01/29/17 at 21:00 Linagliptin (Tradjenta) 5 mg QAM PO Last administered on 01/31/17 08:53; Admin Dose 5 MG; Start 01/30/17 at 09:00 Metoprolol Tartrate (Lopressor) 12.5 mg BID PO Last administered on 01/31/17 08:55; Admin Dose 12.5 MG; Start 01/29/17 at 21:00 Nifedipine (Procardia Xl) 60 mg DAILY PO Last administered on 01/31/17 08:54 ; Admin Dose 60 MG; Start 01/30/17 at 09:00 Ondansetron HCl (Zofran Tab) 4 mg Q6H PRN PO NAUSEA AND/OR VOMITING; Start 01/29/17 at 15:30 Valsartan (Diovan) 80 mg BID PO Last administered on 01/31/17 08:54; Admin Dose 80 MG; Start 01/29/17 at 21:00 Zolpidem Tartrate (Ambien) 5 mg QHS PRN PO INSOMNIA; Start 01/29/17 at 15:30 Miscellaneous Information 1 ea NOTE XX ; Start 01/29/17 at 16:00 Glucose (Glutose) 15 gm Q15M PRN PO DECREASED GLUCOSE; Start 01/29/17 at 16:00 Glucose (Glutose) 22.5 gm Q15M PRN PO DECREASED GLUCOSE; Start 01/29/17 at 16: 00 Dextrose (D50w Syringe) 25 ml Q15M PRN IV DECREASED GLUCOSE; Start 12/8/17 at 16:00 Dextrose (D50w Syringe) 50 ml Q15M PRN IV DECREASED GLUCOSE; Start 01/29/17 at 16:00 Glucagon (Glucagen) 1 mg Q15M PRN IM DECREASED GLUCOSE; Start 01/29/17 at 16:00 Glucose 15 gm 15 gm Q15M PRN BUCCAL DECREASED GLUCOSE; Start 01/29/17 at 16:00 Sodium Chloride (NS) 1,000 ml @ 0 mls/hr Q0M PRN IV TO KEEP SBP ABOVE 90; Start 01/29/17 at 18:20 Clonidine (Catapres) 0.1 mg Q4H PRN PO ELEVATED BLOOD PRESSURE Last administered on 01/29/17 22:55; Admin Dose 0.1 MG; Start 01/29/17 at 22:40 Diagnostic Test (Pha) (Accu-Chek) 1 ea 02 XX Last administered on 01/31/17 01 :27; Admin Dose 1 EA; Start 01/30/17 at 02:00 BETTYE CANSECO MD Jan 31, 2017 18:29
[2017-01-31] MEDS ORDERED: PEG/ELECTROLYTES 4L BTL PO ONE ×2 (19:00→20:00)
[2017-01-31] MEDS ORDERED: BISACODYL (EC) 5 MG TAB PO ONE ×2 (19:00→22:00)
[2017-01-31] MEDS: INSULIN GLARGINE [LANtus] 3 ML PEN SC SCH (20:41)
[2017-01-31] MEDS: ATORVASTATIN 80 MG TAB PO SCH (20:42)
[2017-02-01] VITALS (19 sets, daily range): BP systolic 132–171; BP diastolic 60–77; PULSE 52–72; RESP 15–21
[2017-02-01] MEDS: ACCU-CHEK XX SCH (02:12)
--- NOTE | 2017-02-01 06:27 | PN ---
DATE: 01/30/2017 Dr. Lockett's nephrology consultation and Dr. Smith's GI consultation greatly appreciated. SUBJECTIVE: The patient states he feels weak. Denies any nausea, vomiting. PHYSICAL EXAMINATION GENERAL: The patient is awake, alert. VITAL SIGNS: Blood pressure 171/74, respiration 20 per minute. HEENT: Moderate pallor with cyanosis. LUNGS: Clinically clear. HEART: S1, S2 heard with no definite gallops. ABDOMEN: Soft, nontender. No hepatosplenomegaly. EXTREMITIES: No edema. LABORATORY DATA: WBC count ____, hematocrit 26.7, platelet count is 276,000. Sodium 138, potassium 4, BUN 31, creatinine 4.05. IMPRESSION: 1. Severe anemia with a history of heme-positive stool. 2. End-stage renal disease on maintenance hemodialysis. 3. Status post non-ST elevation myocardial infarction, status post multiple stent placements in the last 2 months. 4. Atrial fibrillation. 5. Diabetes mellitus type 2. 6. Hypertension. 7. Diabetic dyslipidemia. PLAN: The patient will be closely monitored. Repeat CBC in a.m. GI follow recommendations per Dr. Smith. The patient will be continued on clopidogrel and aspirin in view of the recent stent place ment. Dictated By: GABRIELA SHEIKH MD, SR/KIAN Conf#: [id number] DID#: [id number]
[2017-02-01 07:16] LABS: BASOPHIL # 0.1 10^3/ul (0.0-0.1); BASOPHILS % 0.8 % (0.0-2.0); EOSINOPHILS # 1.3 10^3/ul (0.0-0.5); EOSINOPHILS % 16.2 % (0.0-7.0); HEMATOCRIT 31.2 % (42.0-52.0); HEMOGLOBIN 10.4 g/dl (14.0-18.0); LYMPHOCYTES # 1.6 10^3/ul (0.8-2.9); LYMPHOCYTES % 19.9 % (15.0-51.0); MEAN CORPUSCULAR HGB CONC 33.3 g/dl (32.0-37.0); MEAN CORPUSCULAR VOLUME 92.9 fl (82.0-101.0); MEAN PLATELET VOLUME 9.2 fl (7.4-10.4); MONOCYTES % 11.6 % (0.0-11.0); NEUTROPHIL # 4.2 10^3/ul (1.6-7.5); NEUTROPHILS % 51.3 % (39.0-77.0); PLATELET COUNT 252 10^3/UL (140-415); RED BLOOD COUNT 3.36 10^6/ul (4.70-6.10); RED CELL DISTRIBUTION WIDTH 15.9 % (11.5-14.5); WHITE BLOOD COUNT 8.3 10^3/ul (4.8-10.8)
[2017-02-01 07:41] LABS: CALCIUM 8.6 mg/dl (8.4-10.2); CREATININE 4.04 mg/dl (0.61-1.24); POTASSIUM 4.2 mmol/L (3.5-5.1)
[2017-02-01] MEDS: SEVELAMER CARBONATE 0.8 GM PKT PO SCH ×3 (08:00→18:16)
[2017-02-01] MEDS: INSULIN ASPART [NOVOLOG] 3 ML PEN SC SCH ×4 (08:00→20:23)
[2017-02-01] MEDS: DOCUSATE SODIUM 100 MG CAP PO SCH ×2 (09:00→20:17)
[2017-02-01] MEDS: ASPIRIN (EC) 81 MG TAB PO SCH ×2 (09:00→18:18)
[2017-02-01] MEDS: CLOPIDOGREL 75 MG TAB PO SCH ×2 (09:00→18:18)
[2017-02-01] MEDS: VALSARTAN 80 MG TAB PO SCH ×2 (09:05→20:17)
[2017-02-01] MEDS: METOPROLOL 25 MG TAB PO SCH ×2 (09:05→20:18)
[2017-02-01] MEDS: NIFEdipine (XL) 60 MG TAB PO SCH (09:06)
[2017-02-01] MEDS ORDERED: DEXTROSE 5% 1,000 ML IV SCH (11:30)
[2017-02-01] MEDS ORDERED: hydrALAzine 20 MG INJ IV PRN (16:30)
[2017-02-01] MEDS ORDERED: OXYCODONE/ACETAMINOPHEN (5/325) TAB PO PRN ×2 (16:30)
[2017-02-01] MEDS ORDERED: ONDANSETRON 4 MG INJ IV PRN (16:30)
[2017-02-01] MEDS ORDERED: EPHEDrine SULFATE 50 MG/5 ML SYG IV PRN (16:30)
[2017-02-01] MEDS ORDERED: FENTAnyl 50 MCG/ML VIAL IV PRN ×3 (16:30)
[2017-02-01] MEDS ORDERED: LIDOCAINE 2% (SDV) 5 ML INJ ONE (16:33)
[2017-02-01] MEDS ORDERED: PROPOFOL 40 ML ONE (16:33)
--- NOTE | 2017-02-01 17:22 | OPPN ---
Date/Time of Note Date/Time of Note DATE: 02/01/17 TIME: 17:20 Proc Note GI Procedure Date 02/01/17 Indication: diagnostic Pre-procedure Diagnosis Positive stool guaiac and anemia Post-procedure Diagnosis 1. Multiple gastric erosions 15-20 number 2. Multiple kissing duodenal ulcers 3. Multiple inflammatory flat polyps with erosion in the center 5 numbers 1. Multiple small polyp in the cecum and 2 in the ascending colon and transverse colon 2. External hemorrhoid Procedure Performed: Endoscopy, Colonoscopy Surgeon see signature line Enroller none Anesthesia Type: MAC Tourniquet Time none EBL none Transfusion required none Biopsy 1: None Grafts/Implants none Tubes/Drains none Complication(s) none Disposition: PACU Procedure Description Dictated BETYTE CANSECO MD Feb 01, 2017 17:22
[2017-02-01] MEDS: EPOETIN 10000 UNITS/1 ML INJ (ESRD) SC SCH (18:14)
[2017-02-01] MEDS: ALLOPURINOL 100 MG TAB PO SCH (18:16)
[2017-02-01] MEDS: CHOLECALCIFEROL 1,000 UNIT TAB PO SCH (18:17)
[2017-02-01] MEDS: FINASTERIDE 5 MG TAB PO SCH (18:18)
[2017-02-01] MEDS: LINAGLIPTIN 5 MG TABLET PO SCH (18:18)
--- NOTE | 2017-02-01 20:01 | CONS ---
Date/Time of Note Date/Time of Note DATE: 02/01/17 TIME: 19:54 Assessment/Plan Assessment/Plan Additional Assessment/Plan O/E Wd WN male in NAD VS stable Lungs clear Abdomen soft non tender BS present Ext no edema Neuro grossly intact. Consultation Date/Type/Reason Admit Date/Time Jan 29, 2017 at 05:18 Initial Consult Date 01/30/17 Type of Consultation: Nephrology Reason for Consultation Patient is ESRD S/P Upper Gi Endoscopy and Colonoscopy by Dr Smith earlier today. 24 HR Interval Summary Free Text/Dictation Post op recovery excellent now lying in bed in Room 5540. Exam/Review of Systems Vital Signs Vitals Vital Signs Date Time Temp Pulse Resp B/P Pulse Ox O2 Delivery O2 Flow Rate FiO2 02/01/17 18:05 60 21 134/77 96 Room Air 02/01/17 17:33 97.9 01/29/17 16:56 2.0 Intake and Output 01/31/17 01/31/17 02/01/17 14:59 22:59 06:59 Intake Total 1200 ml 3000 ml Balance 1200 ml 3000 ml Results Result Diagram: 02/01/17 0651 02/01/17 0651 Results 24 hrs Laboratory Tests Test 01/31/17 20:39 02/01/17 02:11 02/01/17 02:38 02/01/17 03:03 Bedside Glucose 157 58 L 206 129 Test 02/01/17 06:51 02/01/17 07:59 02/01/17 12:35 02/01/17 18:11 White Blood Count 8.3 Red Blood Count 3.36 L Hemoglobin 10.4 L Hematocrit 31.2 L Mean Corpuscular Volume 92.9 Mean Corpuscular Hemoglobin 31.0 Mean Corpuscular Hemoglobin Concent 33.3 Red Cell Distribution Width 15.9 H Platelet Count 252 Mean Platelet Volume 9.2 Neutrophils % 51.3 Lymphocytes % 19.9 Monocytes % 11.6 H Eosinophils % 16.2 H Basophils % 0.8 Nucleated Red Blood Cells % 0.0 Neutrophils # 4.2 Lymphocytes # 1.6 Monocytes # 1.0 H Eosinophils # 1.3 H Basophils # 0.1 Nucleated Red Blood Cells # 0.0 Sodium Level 134 L Potassium Level 4.2 Chloride Level 96 L Carbon Dioxide Level 27 Anion Gap 15 Blood Urea Nitrogen 31 H Creatinine 4.04 H Glucose Level 96 Calcium Level 8.6 Bedside Glucose 91 87 88 Medications Medications Current Medications Acetaminophen (Tylenol Tab) 650 mg Q6H PRN PO PAIN LEVEL 1-5; Start 01/29/17 at 15:30 Albuterol (Ventolin Hfa) 2 puff Q6H PRN INH WHEEZING AND SOB; Start 01/29/17 at 15:30 Allopurinol (Zyloprim) 100 mg DAILY PO Last administered on 02/01/17 18:16; Admin Dose 100 MG; Start 01/30/17 at 09:00 Aspirin (Halfprin) 81 mg QAM PO Last administered on 02/01/17 18:18; Admin Dose 81 MG; Start 01/30/17 at 09:00 Atorvastatin Calcium (Lipitor) 80 mg QHS PO Last administered on 01/31/17 20: 42; Admin Dose 80 MG; Start 01/29/17 at 21:00 Cholecalciferol (Vitamin D) 1,000 unit DAILY PO Last administered on 18:17; Admin Dose 1,000 UNIT; Start 01/30/17 at 09:00 Clopidogrel Bisulfate (plaVIX) 75 mg DAILY PO Last administered on 02/01/17 18:18; Admin Dose 75 MG; Start 01/30/17 at 09:00 Docusate Sodium (Colace) 100 mg BID PO Last administered on 01/31/17 20:42; Admin Dose 100 MG; Start 01/29/17 at 21:00 Epoetin Guy (Epogen (Esrd)) 10,000 units MoWeFr@17 SC Last administered on 18:14; Admin Dose 10,000 UNITS; Start 01/29/17 at 17:00 Finasteride (Proscar) 5 mg DAILY PO Last administered on 02/01/17 18:18; Admin Dose 5 MG; Start 01/30/17 at 09:00 Insulin Glargine (Lantus) 5 unit QHS SC Last administered on 01/31/17 20:41; Admin Dose 5 UNIT; Start 01/29/17 at 21:00 Linagliptin (Tradjenta) 5 mg QAM PO Last administered on 02/01/17 18:18; Admin Dose 5 MG; Start 01/30/17 at 09:00 Metoprolol Tartrate (Lopressor) 12.5 mg BID PO Last administered on 02/01/17 09:05; Admin Dose 12.5 MG; Start 01/29/17 at 21:00 Nifedipine (Procardia Xl) 60 mg DAILY PO Last administered on 02/01/17 09:06 ; Admin Dose 60 MG; Start 01/30/17 at 09:00 Ondansetron HCl (Zofran Tab) 4 mg Q6H PRN PO NAUSEA AND/OR VOMITING; Start 01/29/17 at 15:30 Valsartan (Diovan) 80 mg BID PO Last administered on 02/01/17 09:05; Admin Dose 80 MG; Start 01/29/17 at 21:00 Zolpidem Tartrate (Ambien) 5 mg QHS PRN PO INSOMNIA; Start 01/29/17 at 15:30 Miscellaneous Information 1 ea NOTE XX ; Start 01/29/17 at 16:00 Glucose (Glutose) 15 gm Q15M PRN PO DECREASED GLUCOSE; Start 01/29/17 at 16:00 Glucose (Glutose) 22.5 gm Q15M PRN PO DECREASED GLUCOSE; Start 01/29/17 at 16: 00 Dextrose (D50w Syringe) 25 ml Q15M PRN IV DECREASED GLUCOSE Last administered on 02/01/17 02:16; Admin Dose 25 ML; Start 01/29/17 at 16:00 Dextrose (D50w Syringe) 50 ml Q15M PRN IV DECREASED GLUCOSE; Start 01/29/17 at 16:00 Glucagon (Glucagen) 1 mg Q15M PRN IM DECREASED GLUCOSE; Start 01/29/17 at 16:00 Glucose 15 gm 15 gm Q15M PRN BUCCAL DECREASED GLUCOSE; Start 01/29/17 at 16:00 Sodium Chloride (NS) 1,000 ml @ 0 mls/hr Q0M PRN IV TO KEEP SBP ABOVE 90; Start 01/29/17 at 18:20 Clonidine (Catapres) 0.1 mg Q4H PRN PO ELEVATED BLOOD PRESSURE Last administered on 01/29/17 22:55; Admin Dose 0.1 MG; Start 01/29/17 at 22:40 Diagnostic Test (Pha) 1 ea 1 ea 02 XX Last administered on 02/01/17 02:12; Admin Dose 1 EA; Start 01/30/17 at 02:00 Dextrose (D5W) 1,000 ml @ 50 mls/hr Q20H IV Last administered on 02/01/17t 12 :16; Admin Dose 50 MLS/HR; Start 02/01/17 at 11:30 24 HR. SUMMARY 24 HR. SUMMARY Plan: Will schedule HD for tomorrow. GREG WHITE MD Feb 01, 2017 20:01
[2017-02-01] MEDS: ATORVASTATIN 80 MG TAB PO SCH (20:16)
[2017-02-01] MEDS: INSULIN GLARGINE [LANtus] 3 ML PEN SC SCH (20:23)
[2017-02-02] VITALS (15 sets, daily range): BP systolic 100–127; BP diastolic 56–67; PULSE 58–65; RESP 18
[2017-02-02] MEDS: ACCU-CHEK XX SCH (02:00)
--- NOTE | 2017-02-02 06:15 | GILP ---
DATE OF PROCEDURE: PROCEDURE: EGD and colonoscopy. INDICATION: An 86-year-old male undergoing this procedure for positive stool guaiac and anemia. Rupesh villanueva is also on Plavix and aspirin. The purpose is to evaluate upper GI and lower GI tract and fin d out the source of GI blood loss. The risk of the procedure, related and unrelated complications, anesthetic risks, alternatives discussed and informed consent was obtained. DESCRIPTION OF PROCEDURE: The patient was brought to the GI lab, sedated by SEISMIC INTERPRETER. After obtaining sedation, scope was passed with much ease into esophagus which was grossly within normal limits. St omach mucosa revealed multiple erosions with an inflammatory polyp in the antrum. Duodenal mucosa r evealed multiple Syrian kissing duodenal ulcers. Second part was within normal limits. No biopsy w as taken because patient was on Plavix and aspirin. Retroversion appeared normal. No altered blood was seen. Scope was straightened out and removed with good patient tolerance. IMPRESSION 1. Erosive gastritis, multiple erosions identified in the antrum 10 to 15 in number with 6 to 7 inf lammatory flat polyps with erosion in the summit of the polyp. 3. Multiple Syrian kissing duodenal ulcers. 4. Normal esophagus. 5. No altered blood was seen. Plan is to continue PPI. COLONOSCOPY REPORT: The patient was turned around, scope was passed with much ease into rectum, adv anced through sigmoid, descending, transverse colon all the way into cecum. Appendiceal orifice sam ntified, entered into terminal ileum which was normal. Patient had a small polyp about 7 to 8 mm in flat in the cecum. Also there was a polyp identified in the ascending colon. ____ small polyp. T wo such polyps were seen. Rest of the colon appeared normal. The patient had external hemorrhoids. Clarity and cleanliness was good. IMPRESSION: 1. Two to 3 small polyps identified in the cecum and ascending colon, all were flat. 2. Negative otherwise all the way into the cecum. 3. Negative terminal ileum. 4. External hemorrhoids. PLAN: Stay on high fiber diet. Colonoscopy needs to be repeated after 3 to 4 years to remove that polyp when patient is off aspirin and Plavix. Dictated By: BETTYE RIDDLE/KIAN Conf#: [id number] DID#: [id number] CC: GABRIELA SHEIKH MD;*End*
[2017-02-02 06:53] LABS: BASOPHIL # 0.1 10^3/ul (0.0-0.1); EOSINOPHILS # 1.2 10^3/ul (0.0-0.5); EOSINOPHILS % 16.2 % (0.0-7.0); HEMATOCRIT 29.5 % (42.0-52.0); HEMOGLOBIN 9.8 g/dl (14.0-18.0); LYMPHOCYTES # 1.6 10^3/ul (0.8-2.9); MEAN CORPUSCULAR HEMOGLOBIN 31.2 pg (29.0-33.0); MEAN CORPUSCULAR HGB CONC 33.2 g/dl (32.0-37.0); MEAN CORPUSCULAR VOLUME 93.9 fl (82.0-101.0); MEAN PLATELET VOLUME 9.5 fl (7.4-10.4); MONOCYTE # 0.9 10^3/ul (0.3-0.9); MONOCYTES % 12.4 % (0.0-11.0); NEUTROPHIL # 3.4 10^3/ul (1.6-7.5); PLATELET COUNT 245 10^3/UL (140-415); RED BLOOD COUNT 3.14 10^6/ul (4.70-6.10); WHITE BLOOD COUNT 7.1 10^3/ul (4.8-10.8)
--- NOTE | 2017-02-02 07:17 | PN ---
DATE: 02/01/2017 SUBJECTIVE: The patient denies any chest pain or shortness of breath. No constipation or diarrhea. Being prepared for procedure for colonoscopy and endoscopy per Dr. Smith. PHYSICAL EXAMINATION GENERAL: The patient is in no acute distress. VITAL SIGNS: Temperature 98.0, blood pressure 160/69, O2 saturation 99% on room air. HEENT: Head normocephalic. CHEST: Clinically clear. HEART: S1, S2 heard with no definite gallops. ABDOMEN: Soft, nontender, no hepatosplenomegaly. EXTREMITIES: No edema. LABORATORY DATA: WBC count 8.3, hematocrit 31.2, potassium 4.2, BUN 31, creatinine 4.04, calcium 8. 6. IMPRESSION: 1. Gastrointestinal bleeding, heme positive stool, exact etiology unclear with severe anemia. 2. End-stage renal disease on hemodialysis 3 times a week. 3. Status post non-ST elevation myocardial infarction, status post several hospitalizations recentl y regarding placement of stents. 4. Atrial fibrillation. 5. Diabetes mellitus type 2 with hypoglycemia this morning. 6. No history of hypertension 7. Hyperlipidemia. PLAN: In view of the hyperglycemia. We will keep the patient on gentle hydration with D5 and water . Closely monitor his blood glucose levels. Reevaluate after the procedure is done by Dr. Smith. Dictated By: GABRIELA SHEIKH MD, SR/KIAN Conf#: [id number] DID#: [id number]
[2017-02-02 07:20] LABS: CALCIUM 8.1 mg/dl (8.4-10.2); CREATININE 4.06 mg/dl (0.61-1.24)
[2017-02-02] MEDS: NIFEdipine (XL) 60 MG TAB PO SCH ×2 (08:27→09:01)
[2017-02-02] MEDS: LINAGLIPTIN 5 MG TABLET PO SCH (08:27)
[2017-02-02] MEDS: METOPROLOL 25 MG TAB PO SCH ×2 (08:27→09:01)
[2017-02-02] MEDS: VALSARTAN 80 MG TAB PO SCH ×2 (08:27→09:01)
[2017-02-02] MEDS: CLOPIDOGREL 75 MG TAB PO SCH (08:27)
[2017-02-02] MEDS: FINASTERIDE 5 MG TAB PO SCH (08:27)
[2017-02-02] MEDS: CHOLECALCIFEROL 1,000 UNIT TAB PO SCH (08:27)
[2017-02-02] MEDS: SEVELAMER CARBONATE 0.8 GM PKT PO SCH ×2 (08:27→11:56)
[2017-02-02] MEDS: ALLOPURINOL 100 MG TAB PO SCH (08:27)
[2017-02-02] MEDS: DOCUSATE SODIUM 100 MG CAP PO SCH (08:27)
[2017-02-02] MEDS: INSULIN ASPART [NOVOLOG] 3 ML PEN SC SCH ×2 (08:29→11:48)
[2017-02-02] MEDS ORDERED: CLON0.1T14 PO (13:29)
--- NOTE | 2017-02-02 18:41 | CONS ---
Date/Time of Note Date/Time of Note DATE: 02/02/17 TIME: 18:40 Assessment/Plan Assessment/Plan Additional Assessment/Plan IMPRESSION: 1. Diabetes mellitus. 2. Renal failure on dialysis. 3. Coronary artery disease, multiple stents. 4. Paroxysmal atrial fibrillation. 5. Hypertension. 6. Anemia, which is a combination of slow GI bleeding and also chronic disease. Patient had a duodenal ulcer and erosive gastritis as a cause of bleeding Plan Continue with PPI We will review H. pylori test if is positive patient will be treated with antibiotic Case was discussed with Dr. Galeas this morning Consultation Date/Type/Reason Admit Date/Time Jan 29, 2017 at 05:18 Initial Consult Date 01/30/17 Type of Consultation: Nephrology 24 HR Interval Summary Constitutional: improved Exam/Review of Systems Vital Signs Vitals Vital Signs Date Time Temp Pulse Resp B/P Pulse Ox O2 Delivery O2 Flow Rate FiO2 02/02/17 12:15 97.5 18 18 127/62 100 02/01/17 18:05 Room Air 01/29/17 16:56 2.0 Intake and Output 02/01/17 02/01/17 02/02/17 15:00 23:00 07:00 Intake Total 680 ml 480 ml Balance 680 ml 480 ml Exam Constitutional: alert, oriented, well developed Psych: nl mood/affect, no complaints Head: atraumatic, normocephalic Eyes: EOMI, PERRL, nl conjunctiva, nl lids, nl sclera ENMT: nl external ears & nose, nl lips & teeth, nl nasal mucosa & septum Neck: non-tender, supple Respiratory: clear to auscultation, normal air movement Cardiovascular: nl pulses, regular rate and rhythm Gastrointestinal: nl liver, spleen, non-tender, soft Musculoskeletal: nl extremities to inspection, nl gait and stance Extremities: normal pulses Neurological: PATHOLOGY TEACHER II-XII intact, nl mental status, nl speech, nl strength Skin: nl turgor, No rash or lesions Lymph: nl lymph nodes Results Result Diagram: 02/02/17 0613 02/02/17 0613 Results 24 hrs Laboratory Tests Test 02/01/17 20:03 02/02/17 01:52 02/02/17 02:08 02/02/17 02:25 Bedside Glucose 257 H 68 L 77 127 Test 02/02/17 06:13 02/02/17 08:28 02/02/17 11:42 White Blood Count 7.1 Red Blood Count 3.14 L Hemoglobin 9.8 L Hematocrit 29.5 L Mean Corpuscular Volume 93.9 Mean Corpuscular Hemoglobin 31.2 Mean Corpuscular Hemoglobin Concent 33.2 Red Cell Distribution Width 16.0 H Platelet Count 245 Mean Platelet Volume 9.5 Neutrophils % 47.0 Lymphocytes % 23.0 Monocytes % 12.4 H Eosinophils % 16.2 H Basophils % 1.0 Nucleated Red Blood Cells % 0.0 Neutrophils # 3.4 Lymphocytes # 1.6 Monocytes # 0.9 Eosinophils # 1.2 H Basophils # 0.1 Nucleated Red Blood Cells # 0.0 Sodium Level 136 Potassium Level 4.0 Chloride Level 102 Carbon Dioxide Level 25 Anion Gap 13 Blood Urea Nitrogen 34 H Creatinine 4.06 H Glucose Level 98 Calcium Level 8.1 L Bedside Glucose 148 220 BETTYE CANSECO MD Feb 02, 2017 18:41
== END 2017-02-02 13:53 | disposition home or self-care (01) | DRG 377 ==
LOC: E/R 04:08 → MS4 05:18
PROVIDERS: ADMIT Internal Medicine; ATTEND Internal Medicine
PROC: 30233N1 Transfusion of Nonautologous Red Blood Cells into Peripheral Vein, Percutaneous Approach (ICD-10-PCS; principal; 2017-01-29)
PROC: 5A1D70Z Performance of Urinary Filtration, Intermittent, Less than 6 Hours Per Day (ICD-10-PCS; 2017-01-29)
PROC: 0DJ08ZZ Inspection of Upper Intestinal Tract, Via Natural or Artificial Opening Endoscopic (ICD-10-PCS; 2017-02-01)
PROC: 0DJD8ZZ Inspection of Lower Intestinal Tract, Via Natural or Artificial Opening Endoscopic (ICD-10-PCS; 2017-02-01)
DX: K92.2 Gastrointestinal hemorrhage, unspecified (principal); N18.6 End stage renal disease; I13.2 Hypertensive heart and chronic kidney disease with heart failure and with stage 5 chronic kidney disease, or end stage renal disease; E11.22 Type 2 diabetes mellitus with diabetic chronic kidney disease; I48.0 Paroxysmal atrial fibrillation; E11.649 Type 2 diabetes mellitus with hypoglycemia without coma; K26.9 Duodenal ulcer, unspecified as acute or chronic, without hemorrhage or perforation; D63.1 Anemia in chronic kidney disease; Z99.2 Dependence on renal dialysis; I25.10 Atherosclerotic heart disease of native coronary artery without angina pectoris; Z95.5 Presence of coronary angioplasty implant and graft; E78.5 Hyperlipidemia, unspecified; I50.9 Heart failure, unspecified; E11.65 Type 2 diabetes mellitus with hyperglycemia; K29.60 Other gastritis without bleeding; K31.7 Polyp of stomach and duodenum; D12.0 Benign neoplasm of cecum; K63.5 Polyp of colon; K64.4 Residual hemorrhoidal skin tags; Z79.82 Long term (current) use of aspirin; Z79.4 Long term (current) use of insulin
CPT/HCPCS: 36415; 36430; 80048; 80053; 82270; 82607; 82728; 82746; 82962; 83540; 84484; 85025; 85045; 85610; 85730; 86850; 86900; 86901; 86920; 90935; 93005; J1815; J7070; P9016; Q4081